=== PATIENT | male | born 1955 | race African-American/Black ===

== ENCOUNTER 2019-03-15 12:29 | Inpatient (IN) | payer MEDICARE ==
--- NOTE | 2019-03-15 12:47 | Emergency Department Report ---
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 Due to findings the following was ordered: ED Disposition for MSE Condition: Stable
[2019-03-15 13:43] LABS: Hematocrit 34.4 % (35.5-45.6); Hemoglobin 11.1 gm/dl (11.8-15.2); Mean Corpuscular HGB Conc 32 % (32-34); Mean Corpuscular Volume 95 fl (84-94); Platelet Count 265 K/mm3 (140-440); Red Blood Count 3.62 M/mm3 (3.65-5.03); Red Cell Distribution Width 18.3 % (13.2-15.2)
[2019-03-15 14:06] LABS: Albumin 2.7 g/dL (3.9-5); Calcium 9.1 mg/dL (8.4-10.2)
--- NOTE | 2019-03-15 14:28 | Consultation ---
History of Present Illness - Reason for Consult end stage renal disease - History of Present Illness 63 year old gentleman Latvian speaking only with medical history significant for HTN, end-stage renal disease on hemodialysis Thursday via a right arm AV fistula at [facility] last session of dialysis was . He denies any orthopnea PND. Denies any lower extremity edema. 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 Reports dialysis access clotted on Thursday and was unable to dialyze ,was sent to the ER today after presenting with clotted access again today. Denies any fevers chills. Denies any abdominal pain denies any shortness of breath. Labs in the ED significant for potassium of 5.4 he was found on room air oxygen saturation 100% Medications and Allergies Allergies Allergy/AdvReac Type Severity Reaction Status Date / Time No Known Allergies Allergy Unverified 03/15/19 12:44 Review of Systems Constitutional: weight gain, fatigue Ears, nose, mouth and throat: no ear pain, no ear discharge Cardiovascular: no chest pain, no orthopnea Respiratory: no cough, no cough with sputum Gastrointestinal: no abdominal pain, no nausea, no vomiting, no melena, no hematochezia Genitourinary Male: no dysuria, no hematuria Musculoskeletal: no neck stiffness, no neck pain Integumentary: no redness Neurological: weakness (right-sided), no parathesias, no numbness Psychiatric: anxiety Endocrine: no cold intolerance, no heat intolerance Hematologic/Lymphatic: no easy bruising, no easy bleeding Exam - Vital Signs Vital signs: Vital Signs Temp Pulse Resp BP Pulse Ox 98.1 F 61 20 245/130 100 03/15/19 12:42 03/15/19 12:42 03/15/19 12:42 03/15/19 12:42 03/15/19 12:42 - General Appearance General appearance: well-developed, well-nourished EENT: ATNC, PERRL, mucous membranes moist Neck: Present: neck supple, trachea midline Respiratory: Clear to Ascultation Heart: regular, S1S2 Gastrointestinal: Present: normal, normoactive bowel sounds Integumentary: no rash Neurologic: alert and oriented x3, CN 3-12 intact, upper extremity weakness Musculoskeletal: Present: deferred Psychiatric: mood/affect appropriate Results - Lab Results 03/15/19 13:23 03/15/19 13:23 Most recent lab results Calcium 9.1 mg/dL (8.4-10.2) 03/15/19 13:23 Phosphorus 4.50 mg/dL (2.5-4.5) 03/15/19 13:23 - Image Kidney/bladder ultrasound: other (I reviewed chest x-ray without any overt edema) Assessment and Plan - Patient Problems (1) End stage renal disease Status: Acute Plan to address problem: End stage renal disease AV fistula is clotted Discussed with vascular surgery team regarding declotting access versus tunneled dialysis catheter Placement We will initiate hemodialysis as soon as access placed (2) HTN (hypertension) Status: Acute Plan to address problem: Hypertension controlled monitor blood pressure (3) Hyperkalemia, diminished renal excretion Status: Acute Plan to address problem: Hyperkalemia: Potassium 5.4 We'll give Kayexalate 30 g 1 Low potassium diet (4) Acidosis Status: Acute Plan to address problem: Metabolic acidosis We'll give orders of sodium bicarbonate for now Initiate hemodialysis as soon as access is functional
--- NOTE | 2019-03-15 14:36 | XRay Report ---
CHEST XRAY, 2 VIEWS: History: Shortness of breath. Findings: There is coarsening of the perihilar markings. The lungs are clear and well expanded. The pleural spaces are clear. The cardiac silhouette and pulmonary vasculature are within normal limits for technique. The osseous structures appear within normal limits. IMPRESSION: Findings consistent with reactive airway disease or bronchiolitis.
[2019-03-15] MEDS ORDERED: KIONEX PO ONE (15:00)
--- NOTE | 2019-03-15 15:35 | Emergency Department Report ---
ED General Adult HPI - General Chief complaint: Medical Clearance Stated complaint: SICK Time Seen by Provider: 03/15/19 12:43 Source: family, donor services technician (Family member named Simon) Mode of arrival: Wheelchair Limitations: Language Barrier - History of Present Illness Initial comments: Patient presents to the emergency department due to an issue with his AV fistula. The patient is a dialysis patient and has not had dialysis since . Assess was attempted on Thursday to no avail and again today without success. The patient's procedure tech reached out to vascular surgery and attempt will be made tomorrow for a repair or temporary measures for dialysis -: Sudden Severity scale (0 -10): 0 Improves with: none Worsens with: none Associated Symptoms: denies other symptoms - Related Data Allergies Allergy/AdvReac Type Severity Reaction Status Date / Time No Known Allergies Allergy Unverified 03/15/19 12:44 ED Review of Systems ROS: Stated complaint: SICK Other details as noted in HPI Comment: All other systems reviewed and negative Constitutional: denies: chills, fever Eyes: denies: eye pain, eye discharge, vision change ENT: denies: ear pain, throat pain Respiratory: denies: cough, shortness of breath, wheezing Cardiovascular: denies: chest pain, palpitations Endocrine: no symptoms reported Gastrointestinal: denies: abdominal pain, nausea, diarrhea Genitourinary: denies: urgency, dysuria Musculoskeletal: denies: back pain, joint swelling, arthralgia Skin: denies: rash, lesions Neurological: denies: headache, weakness, paresthesias Psychiatric: denies: anxiety, depression Hematological/Lymphatic: denies: easy bleeding, easy bruising ED Past Medical Hx - Past Medical History Previous Medical History?: Yes Hx CVA: Yes Hx Renal Disease: Yes - Surgical History Additional Surgical History: unknown - Social History Smoking Status: Never Smoker Substance Use Type: None ED Physical Exam - General Limitations: Language Barrier General appearance: alert, in no apparent distress - Head Head exam: Present: atraumatic, normocephalic - Eye Eye exam: Present: normal appearance - ENT ENT exam: Present: mucous membranes moist - Neck Neck exam: Present: normal inspection - Respiratory Respiratory exam: Present: normal lung sounds bilaterally. Absent: respiratory distress, wheezes - Cardiovascular Cardiovascular Exam: Present: regular rate, normal rhythm. Absent: systolic murmur, diastolic murmur, rubs, gallop - GI/Abdominal GI/Abdominal exam: Present: soft, normal bowel sounds, other (colostomy present). Absent: distended, tenderness - Rectal Rectal exam: Present: deferred - Extremities Exam Extremities exam: Present: normal inspection, other (fistula of the right upper extremity without peripheral) - Back Exam Back exam: Present: normal inspection - Neurological Exam Neurological exam: Present: alert, oriented X3 - Psychiatric Psychiatric exam: Present: normal affect, normal mood - Skin Skin exam: Present: warm, dry, intact, normal color. Absent: rash ED Course Vital Signs 03/15/19 12:42 Temperature 98.1 F Pulse Rate 61 Respiratory 20 Rate Blood Pressure 245/130 O2 Sat by Pulse 100 Oximetry ED Medical Decision Making - Lab Data Result diagrams: 03/15/19 13:23 03/15/19 13:23 Lab Results 03/15/19 03/15/19 Range/Units 13:23 13:23 WBC 7.2 (4.5-11.0) K/mm3 RBC 3.62 L (3.65-5.03) M/mm3 Hgb 11.1 L (11.8-15.2) gm/dl Hct 34.4 L (35.5-45.6) % MCV 95 H (84-94) fl MCH 31 (28-32) pg MCHC 32 (32-34) % RDW 18.3 H (13.2-15.2) % Plt Count 265 (140-440) K/mm3 Sodium 137 (137-145) mmol/L Potassium 5.4 H (3.6-5.0) mmol/L Chloride 98.4 (98-107) mmol/L Carbon Dioxide 19 L (22-30) mmol/L Anion Gap 25 mmol/L BUN 56 H (9-20) mg/dL Creatinine 20.2 H (0.8-1.5) mg/dL Estimated GFR 2 ml/min BUN/Creatinine Ratio 3 % Glucose 83 (75-100) mg/dL Calcium 9.1 (8.4-10.2) mg/dL Phosphorus 4.50 (2.5-4.5) mg/dL Total Bilirubin 0.50 (0.1-1.2) mg/dL AST 16 (5-40) units/L ALT 24 (7-56) units/L Alkaline Phosphatase 156 H (35-129) units/L Total Protein 5.9 L (6.3-8.2) g/dL Albumin 2.7 L (3.9-5) g/dL Albumin/Globulin Ratio 0.8 % - Radiology Data Radiology results: report reviewed - Medical Decision Making The patient's procedure tech, come to the ED to see the patient and discussed the situation with me in detail This lady her plan was to have the patient to revascularization of his fistula and have dialysis but there was no availability Critical care attestation.: If time is entered above; I have spent that time in minutes in the direct care of this critically ill patient, excluding procedure time. ED Disposition Clinical Impression: Complication of AV dialysis fistula Disposition: OP ADMIT IP TO THIS HOSP Is pt being admited?: Yes Does the pt Need Aspirin: No Condition: Stable
[2019-03-15] MEDS ORDERED: MORPHINE IV ONE (16:15)
[2019-03-15] MEDS ORDERED: ZOFRAN IV PRN (21:00)
[2019-03-15] MEDS ORDERED: TYLENOL PO PRN (21:00)
[2019-03-15] MEDS ORDERED: SODIUM CHLORIDE FLUSH SYRINGE 10 ML IV PRN (21:00)
[2019-03-15] MEDS ORDERED: NON-FORMULARY (Omeprazole [Omeprazole] 20 MG) PO SCH (22:00)
[2019-03-15] MEDS ORDERED: HumaLOG SUB-Q ONE (22:09)
[2019-03-15] MEDS: SODIUM BICARBONATE PO SCH (23:48)
[2019-03-15] MEDS: ZOLOFT PO SCH (23:48)
[2019-03-15] MEDS: ZYLOPRIM PO SCH (23:48)
[2019-03-15] MEDS: SODIUM CHLORIDE FLUSH SYRINGE 10 ML IV SCH (23:49)
[2019-03-15] MEDS: PROTONIX PO SCH (23:49)
[2019-03-16] MEDS: MEGACE PO SCH ×2 (00:03→10:00)
--- NOTE | 2019-03-16 01:38 | Event Note ---
Date: 03/15/19 See dictated H/p in reports Volume overloas in ESRD Hyperkalemia Malfunctioning AV Fistula
--- NOTE | 2019-03-16 01:58 | History and Physical Report ---
Cancel the document MTDD
--- NOTE | 2019-03-16 02:09 | History and Physical Report ---
CHIEF COMPLAINT: 1. Malfunctioning AV fistula. 2. Unable to do dialysis. HISTORY OF PRESENT ILLNESS: The patient comes into the Emergency Room for AV fistula, not being functioning. The patient has not had dialysis since , which is about 5 days ago. Access was attempted on Thursday 3 days ago, but was not successful. The patient's leaf size picker referred to the Emergency Room for admission and Vascular Surgery. The patient to get AV fistula repair tomorrow and if necessary Vascath insertion. No shortness of breath. Exertional dyspnea present. No chest pain. PAST MEDICAL HISTORY: Significant for CVA in the past, end-stage renal disease. PAST SURGICAL HISTORY: AV fistula. SOCIAL HISTORY: Does not smoke. FAMILY HISTORY: Hypertension. REVIEW OF SYSTEMS: Significant for shortness of breath on minimal exertion. No orthopnea. PHYSICAL EXAMINATION: GENERAL: Elderly male, cooperative during examination. VITAL SIGNS: Blood pressure is 97/58, temperature 97.5, pulse is 75, respirations are 18, sats are 100%. HEENT: Unremarkable. Pupils are equal and reactive. NECK: Supple, no lymphadenopathy, no thyromegaly. LUNGS: Clear to auscultation and percussion. Good air entry. CARDIOVASCULAR: S1, S2 heard. No gallop, no murmur, no rub. Apical impulse in the left fifth intercostal space and midclavicular line. ABDOMEN: Soft and benign. No hepatosplenomegaly. No guarding, no rigidity. Hernial orifices are normal. EXTREMITIES: Good pedal pulses. CENTRAL NERVOUS SYSTEM: Alert and oriented x 4, nonfocal exam. LABORATORY DATA: Significant for white count of 7200, H and H of 11.1 and 34.4, platelet count is 265,000. Sodium is 137, potassium is 5.4. BUN and creatinine is 56 and 20.2. Total protein is 5.7, albumin is 2.7. Chest x-ray shows findings consistent with reactive airway disease and bronchiolitis. ASSESSMENT AND PLAN: 1. Volume overload secondary to end-stage renal disease, was not having dialysis. The patient needs emergent dialysis after repair of AV fistula/Vas-Cath insertion. Nephrology consult requested. 2. Hyperkalemia, mild. Calcium gluconate given. 3. Insulin-dependent diabetes. Continue insulin. 4. Hypertension. Continue antihypertensives. 5. Gout. Continue allopurinol for prevention. 6. Gastroesophageal reflux disease. Continue omeprazole. 7. Depression. Continue sertraline. 8. Deep venous thrombosis prophylaxis, heparin 5000 q. 12. 9. AV Fistula Malfunction---Vascular surgery consult requested for AV Fistula repair/Vascath insertion JOB# [id number] VSM/NTS MTDD
[2019-03-16] MEDS: HEPARIN SUB-Q SCH ×3 (02:17→21:04)
[2019-03-16] MEDS: PHOSLO PO SCH ×3 (08:44→18:41)
[2019-03-16] MEDS ORDERED: HEPARIN/NS 5000 UNIT/500ML(CATH LAB) 500 ML IR ONE (08:54)
[2019-03-16] MEDS ORDERED: HEPARIN 10,000 UNITS/10 ML ONE (08:54)
[2019-03-16] MEDS ORDERED: ANCEF/STERILE WATER 2 GM/20 ML 2 GM/20 ML SYRINGE IV ONE (08:55)
[2019-03-16] MEDS ORDERED: NACL 0.9% 500 ML 500 ML ONE (09:06)
[2019-03-16] MEDS ORDERED: VERSED ONE (09:10)
[2019-03-16] MEDS ORDERED: SUBLIMAZE ONE (09:10)
[2019-03-16] MEDS: XYLOCAINE 2% INFILTRATI ONE ×2 (09:30→09:32)
[2019-03-16] MEDS: LANTUS SUB-Q SCH (10:00)
[2019-03-16] MEDS ORDERED: INSULIN DETEMIR 5 UNIT SUB-Q SCH (10:00)
[2019-03-16] MEDS: SODIUM CHLORIDE FLUSH SYRINGE 10 ML IV SCH ×2 (10:00→21:04)
[2019-03-16] MEDS: PROTONIX PO SCH ×2 (10:00→21:04)
[2019-03-16] MEDS: ZOLOFT PO SCH (10:00)
[2019-03-16] MEDS: SODIUM BICARBONATE PO SCH ×4 (10:00→21:04)
[2019-03-16] MEDS: ZYLOPRIM PO SCH (10:00)
--- NOTE | 2019-03-16 10:01 | Operative Report ---
Operative Report Operative Report: Date of procedure: 03/16/2019 Pre-operative diagnosis: Thrombosed right upper extremity arteriovenous access Post-operative diagnosis: same Procedure name(s): 1. US guided puncture of the left internal jugular vein 2. Placement of left internal jugular permacath (Glidepath 23cm) 3. Fluoroscopic supervision Surgeon: Enrique Fischer MD, FACS Industrial Renderer: none Anesthesia: local with sedation; Sedation start: 917 Sedation end: 945 Total sedation time: 28 minutes or 2 anesthesia units EBL: minimal Operative indication: Patient is a 63 yo man who requires hemodialysis access. His right upper extremity graft is thrombosed. 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 Findings: Good flow from both ports. Catheter located at the cavoatrial junction. Procedure: The patient was placed on the table in supine position. He was given intravenous sedation. The right arm was attempted to be manipulated into a position where I could get access. However the patient has severe contractures with at the elbow and at the shoulder and the arm cannot be positioned in such a way that would facilitate getting equipment in to do a percutaneous thrombectomy. The angle of the elbow would not permit any guidewires passed distally which would make quite difficult to get the arterial plug. In addition it is very difficult to move the arm in a position that doesn't have the forearm essentially draped over the arterial venous access site. Ultrasound was used to locate the right internal jugular vein. This was patent high up in the neck but occluded at the subclavian area. The femoral vessels were looked at and both femoral veins were not visualized on the ultrasound. The left internal jugular vein appeared to be patent all the way although smaller at the base of the neck. The decision was made to try to place a left jugular vein permacath. The left neck and chest was prepped with ChloraPrep solution and draped in usual sterile fashion. 1% lidocaine plain was used for local anesthesia. Under real- time ultrasound guidance the left internal jugular vein was cannulated using micropuncture technique. The micropuncture wire passed easily into the central circulation. A subcutaneous tunnel was made across the anterior chest and a 23 cm glidepath catheter was tunneled along the chest to the jugular insertion site. A J-wire and a catheter was then used to place a guidewire into the inferior vena cava. This wire was exchanged for a Amplatzer wire. The tract into the vein was dilated and then the safe sheath was placed. The catheter was placed into the central circulation and the safe sheath was removed. The catheter was positioned in the right atrium. There was excellent flow from both ports. Both ports were locked with her stated volume of 1000 unit per milliliter heparin. The catheter was sewn into place using 2-0 Prolene. The insertion site was closed using 4-0 Monocryl. Sterile dressings were applied. The patient tolerated the procedure well.
[2019-03-16] MEDS ORDERED: NACL 0.9% 100 ML IV PRN (10:45)
[2019-03-16] MEDS ORDERED: HEPARIN IV PRN (10:45)
[2019-03-16 10:57] LABS: Calcium 8.4 mg/dL (8.4-10.2)
--- NOTE | 2019-03-16 11:14 | Progress Note ---
<CHANCE MORAN - Last Filed: 03/16/19 15:21> Assessment and Plan Assessment and plan: 63 y.o. Portuguese speaking male with history of CVA with right sided weakness, HTN, end-stage renal disease on hemodialysis T/ / who presented to the ED on 03/15 with c/o clotted AV graft. Pt states that he was unable to receive HD on 03/12 because his AV graft had clotted preventing access. He was sent to the ED on 03/15 after presenting to dialysis clinic with clotted access again. He was admitted to Medical floor. Vascular surgery was consulted. 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 Left IJ Permacath has been placed. ESRD On HD at [facility] T// Nephrology following HTN Controlled Continue to monitor BP PRN hydralazine Hyperkalemia Potassium on asmission 5.4 Received Kayexalate 30g per nephrology Continue to monitor electrolytes IDDM Continue POC BG monitoring SSI and Lantus HgbA1c -pending GERD On Protonix Hx Gout On Allopurinol Hx of Depression On Zoloft Hx of CVA- with right sided weakness DVT PPX On Heparin Disposition Plan: D/C once cleared by vascular surgery and nephrology History Interval history: Pt remained stable overnight. He was taken to OR this am by Vascular Surgery for possible thrombectomy of malfunctioning AV Fistula. Hospitalist Physical - Constitutional Vitals: Temp Pulse Resp BP Pulse Ox 98.7 F 89 16 110/67 100 03/16/19 08:35 03/16/19 08:35 03/16/19 08:35 03/16/19 08:35 03/16/19 08:35 General appearance: Present: no acute distress - EENT Eyes: Present: PERRL, EOM intact ENT: hearing intact - Neck Neck: Present: supple, normal ROM, other (Left IJ Permacath ) - Respiratory Respiratory effort: normal Respiratory: bilateral: diminished - Cardiovascular Heart Sounds: Present: S1 & S2 - Extremities Extremities: No edema, abnormal (Right Arm Vascath) Extremity abnormal: other - Abdominal General gastrointestinal: soft, non-tender - Integumentary Integumentary: Present: warm, dry - Psychiatric Psychiatric: cooperative - Neurologic Neurologic: CNII-XII intact Results - Labs CBC & Chem 7: 03/15/19 13:23 03/16/19 Unknown Labs: Laboratory Last Values WBC 7.2 K/mm3 (4.5-11.0) 03/15/19 13:23 RBC 3.62 M/mm3 (3.65-5.03) L 03/15/19 13:23 Hgb 11.1 gm/dl (11.8-15.2) L 03/15/19 13:23 Hct 34.4 % (35.5-45.6) L 03/15/19 13:23 MCV 95 fl (84-94) H 03/15/19 13:23 MCH 31 pg (28-32) 03/15/19 13:23 MCHC 32 % (32-34) 03/15/19 13:23 RDW 18.3 % (13.2-15.2) H 03/15/19 13:23 Plt Count 265 K/mm3 (140-440) 03/15/19 13:23 Sodium 140 mmol/L (137-145) 03/16/19 Unknown Potassium 5.1 mmol/L (3.6-5.0) H 03/16/19 Unknown Chloride 100.9 mmol/L (98-107) 03/16/19 Unknown Carbon Dioxide 25 mmol/L (22-30) 03/16/19 Unknown Anion Gap 19 mmol/L 03/16/19 Unknown BUN 54 mg/dL (9-20) H 03/16/19 Unknown Creatinine 20.1 mg/dL (0.8-1.5) H 03/16/19 Unknown Estimated GFR 2 ml/min 03/16/19 Unknown BUN/Creatinine Ratio 3 % 03/16/19 Unknown Glucose 99 mg/dL (75-100) 03/16/19 Unknown POC Glucose 110 (70-105) H 03/16/19 00:06 Calcium 8.4 mg/dL (8.4-10.2) 03/16/19 Unknown Phosphorus 4.50 mg/dL (2.5-4.5) 03/15/19 13:23 Total Bilirubin 0.50 mg/dL (0.1-1.2) 03/15/19 13:23 AST 16 units/L (5-40) 03/15/19 13:23 ALT 24 units/L (7-56) 03/15/19 13:23 Alkaline Phosphatase 156 units/L (35-129) H 03/15/19 13:23 Total Protein 5.9 g/dL (6.3-8.2) L 03/15/19 13:23 Albumin 2.7 g/dL (3.9-5) L 03/15/19 13:23 Albumin/Globulin Ratio 0.8 % 03/15/19 13:23 Active Medications - Current Medications Current Medications: Generic Name Dose Route Start Last Admin Trade Name Freq PRN Reason Stop Dose Admin Acetaminophen 650 mg 03/15/19 21:00 Tylenol PO Q4H PRN Pain MILD(1-3)/Fever >100.5/NATHAN Allopurinol 100 mg 03/15/19 22:00 03/15/19 23:48 Zyloprim PO 100 mg QDAY [facility] Administration Calcium Acetate 667 mg 03/16/19 08:00 03/16/19 08:44 Phoslo PO Not Given TIDWM [facility] Heparin Sodium (Porcine) 5,000 unit 03/16/19 01:30 03/16/19 02:17 Heparin SUB-Q Not Given Q12HR [facility] Heparin Sodium (Porcine) 5,000 unit 03/16/19 10:45 Heparin IV HERNANDEZ PRN hemodialysis Sodium Chloride 100 mls @ 999 mls/hr 03/16/19 10:45 Nacl 0.9% IV HERNANDEZ PRN Hypotension Insulin Glargine 5 units 03/16/19 10:00 Lantus SUB-Q QAM [facility] Megestrol Acetate 400 mg 03/15/19 22:00 03/16/19 00:03 Megace PO Not Given QDAY [facility] Ondansetron HCl 4 mg 03/15/19 21:00 Zofran IV Q8H PRN Nausea And Vomiting Pantoprazole Sodium 20 mg 03/15/19 22:00 03/15/19 23:49 Protonix PO 20 mg BID ALMA Administration Sertraline HCl 50 mg 03/15/19 22:00 03/15/19 23:48 Zoloft PO 50 mg QDAY [facility] Administration Sodium Bicarbonate 650 mg 03/15/19 22:00 03/15/19 23:48 Sodium Bicarbonate PO 650 mg QID ALMA Administration Sodium Chloride 10 ml 03/15/19 22:00 03/15/19 23:49 Sodium Chloride Flush Syringe 10 Ml IV 10 ml BID ALMA Administration Sodium Chloride 10 ml 03/15/19 21:00 Sodium Chloride Flush Syringe 10 Ml IV PRN PRN LINE FLUSH <FRANC LAGUNAS M - Last Filed: 03/16/19 16:29> Assessment and Plan Assessment and plan: I saw and evaluated the patient during dialysis. I agree with the findings and the plan of care as documented in the Nurse Practitioner's chance Moran note, with the following corrections and additions. patient was complaining pain and pain meds were given. patient admitted for declotting of AVG. vascular surgery and Nephrology following. Hospitalist Physical - Constitutional Vitals: Temp Pulse Resp BP Pulse Ox 98.3 F 99 H 16 103/69 100 03/16/19 16:10 03/16/19 16:08 03/16/19 16:08 03/16/19 16:08 03/16/19 16:08 Results - Labs CBC & Chem 7: 03/15/19 13:23 03/16/19 Unknown Labs: Laboratory Last Values WBC 7.2 K/mm3 (4.5-11.0) 03/15/19 13:23 RBC 3.62 M/mm3 (3.65-5.03) L 03/15/19 13:23 Hgb 11.1 gm/dl (11.8-15.2) L 03/15/19 13:23 Hct 34.4 % (35.5-45.6) L 03/15/19 13:23 MCV 95 fl (84-94) H 03/15/19 13:23 MCH 31 pg (28-32) 03/15/19 13:23 MCHC 32 % (32-34) 03/15/19 13:23 RDW 18.3 % (13.2-15.2) H 03/15/19 13:23 Plt Count 265 K/mm3 (140-440) 03/15/19 13:23 Sodium 140 mmol/L (137-145) 03/16/19 Unknown Potassium 5.1 mmol/L (3.6-5.0) H 03/16/19 Unknown Chloride 100.9 mmol/L (98-107) 03/16/19 Unknown Carbon Dioxide 25 mmol/L (22-30) 03/16/19 Unknown Anion Gap 19 mmol/L 03/16/19 Unknown BUN 54 mg/dL (9-20) H 03/16/19 Unknown Creatinine 20.1 mg/dL (0.8-1.5) H 03/16/19 Unknown Estimated GFR 2 ml/min 03/16/19 Unknown BUN/Creatinine Ratio 3 % 03/16/19 Unknown Glucose 99 mg/dL (75-100) 03/16/19 Unknown POC Glucose 110 (70-105) H 03/16/19 00:06 Hemoglobin A1c < 4.2 % (4-6) 03/16/19 10:16 Calcium 8.4 mg/dL (8.4-10.2) 03/16/19 Unknown Phosphorus 4.50 mg/dL (2.5-4.5) 03/15/19 13:23 Total Bilirubin 0.50 mg/dL (0.1-1.2) 03/15/19 13:23 AST 16 units/L (5-40) 03/15/19 13:23 ALT 24 units/L (7-56) 03/15/19 13:23 Alkaline Phosphatase 156 units/L (35-129) H 03/15/19 13:23 Total Protein 5.9 g/dL (6.3-8.2) L 03/15/19 13:23 Albumin 2.7 g/dL (3.9-5) L 03/15/19 13:23 Albumin/Globulin Ratio 0.8 % 03/15/19 13:23 Hepatitis A IgM Ab Non-reactive (NonReactive) 03/16/19 Unknown Hep Bs Antigen Non-reactive (Negative) 03/16/19 Unknown Hep B Core IgM Ab Non-reactive (NonReactive) 03/16/19 Unknown Hepatitis C Antibody Non-reactive (NonReactive) 03/16/19 Unknown Active Medications - Current Medications Current Medications: Generic Name Dose Route Start Last Admin Trade Name Freq PRN Reason Stop Dose Admin Acetaminophen 650 mg 03/15/19 21:00 Tylenol PO Q4H PRN Pain MILD(1-3)/Fever >100.5/NATHAN Allopurinol 100 mg 03/15/19 22:00 03/15/19 23:48 Zyloprim PO 100 mg QDAY [facility] Administration Calcium Acetate 667 mg 03/16/19 08:00 03/16/19 13:12 Phoslo PO Not Given TIDWM [facility] Heparin Sodium (Porcine) 5,000 unit 03/16/19 01:30 03/16/19 13:12 Heparin SUB-Q Not Given Q12HR [facility] Heparin Sodium (Porcine) 5,000 unit 03/16/19 10:45 Heparin IV HERNANDEZ PRN hemodialysis Hydralazine HCl 10 mg 03/16/19 12:00 Apresoline IV Q4H PRN Blood Pressure Sodium Chloride 100 mls @ 999 mls/hr 03/16/19 10:45 Nacl 0.9% IV HERNANDEZ PRN Hypotension Insulin Glargine 5 units 03/16/19 10:00 Lantus SUB-Q QAM [facility] Megestrol Acetate 400 mg 03/15/19 22:00 03/16/19 00:03 Megace PO Not Given QDAY [facility] Morphine Sulfate 2 mg 03/16/19 16:00 Morphine IV 03/17/19 15:59 Q4H PRN Pain, Moderate (4-6) Ondansetron HCl 4 mg 03/15/19 21:00 Zofran IV Q8H PRN Nausea And Vomiting Oxycodone/Acetaminophen 1 tab 03/16/19 16:00 Percocet 5/325 PO Q6H PRN Pain, Moderate (4-6) Pantoprazole Sodium 20 mg 03/15/19 22:00 03/15/19 23:49 Protonix PO 20 mg BID ALMA Administration Sertraline HCl 50 mg 03/15/19 22:00 03/15/19 23:48 Zoloft PO 50 mg QDAY [facility] Administration Sodium Bicarbonate 650 mg 03/15/19 22:00 03/16/19 13:13 Sodium Bicarbonate PO Not Given QID [facility] Sodium Chloride 10 ml 03/15/19 22:00 03/16/19 10:00 Sodium Chloride Flush Syringe 10 Ml IV 10 ml BID ALMA Administration Sodium Chloride 10 ml 03/15/19 21:00 Sodium Chloride Flush Syringe 10 Ml IV PRN PRN LINE FLUSH Nutrition/Malnutrition Assess - Dietary Evaluation Nutrition/Malnutrition Findings: Nutrition Notes Start: 03/16/19 15:02 Freq: Status: Active Protocol: Document 03/16/19 15:02 RM (Rec: 03/16/19 15:09 RM [id number]) Nutrition Notes 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 Pt not in room at time of visit but pt in room. Pt does not speak Wallisian and had friend interpret via phone. Stated that pt ate 3 meals daily [employer] and that he has not had a chance to eat here. Denied chewing difficulty. DM diet education not appropriate d/t A1c of 4.2. Burn Absent Trauma Absent Nutrition Intervention Revisit per MD consult or patient Sign Off request:
[2019-03-16] MEDS ORDERED: APRESOLINE IV PRN (12:00)
[2019-03-16] MEDS ORDERED: NACL 0.9 (PRIMING MACHINE ONLY DIALYSIS) MC ONE (14:07)
[2019-03-16 14:49] LABS: Hepatitis B Surface Antigen Non-Reactive (Negative); Hepatitis C Virus Antibody Non-Reactive (NonReactive)
[2019-03-16] MEDS ORDERED: MORPHINE IV PRN (16:00)
--- NOTE | 2019-03-16 17:28 | Progress Note ---
Assessment and Plan - Patient Problems (1) End stage renal disease Current Visit: No Status: Acute Plan to address problem: End stage renal disease AV fistula is clotted Discussed with vascular surgery team regarding declotting access versus tunneled dialysis catheter Placement Vascular surgery unable to perform thrombectomy due to contractures Has had tunnelled dialysis catheter placed (2) HTN (hypertension) Current Visit: No Status: Acute Plan to address problem: Hypertension controlled monitor blood pressure (3) Hyperkalemia, diminished renal excretion Current Visit: No Status: Acute Plan to address problem: Hyperkalemia: Potassium 5.4 We'll give Kayexalate 30 g 1 Low potassium diet Hemodialysis intiated. (4) Acidosis Current Visit: No Status: Acute Plan to address problem: Metabolic acidosis Initiate hemodialysis Subjective Interval history: 63 year old gentleman Yoruba speaking only with medical history significant for HTN, end-stage renal disease on hemodialysis Thursday via a right arm AV fistula at [facility] last session of dialysis was . patient seen today I attest I saw the patient on hemodialysis at 12noon. prior authorization technician reports some nausea earlier he feels well. Objective - Vital Signs Vital signs: Vital Signs - 12hr 03/16/19 03/16/19 03/16/19 05:30 05:40 05:50 Temperature Pulse Rate 73 62 61 Respiratory 18 17 13 Rate Blood Pressure 105/48 105/48 105/48 Blood Pressure [Left] O2 Sat by Pulse 99 99 Oximetry 03/16/19 03/16/19 03/16/19 06:00 06:10 06:20 Temperature Pulse Rate 62 65 71 Respiratory 16 17 13 Rate Blood Pressure 105/48 106/46 106/46 Blood Pressure [Left] O2 Sat by Pulse 99 99 98 Oximetry 03/16/19 03/16/19 03/16/19 06:30 06:40 06:50 Temperature Pulse Rate 74 67 66 Respiratory 17 18 16 Rate Blood Pressure 106/46 106/46 102/37 Blood Pressure [Left] O2 Sat by Pulse 99 99 100 Oximetry 03/16/19 03/16/19 03/16/19 08:35 10:00 10:20 Temperature 98.7 F 97.0 F L Pulse Rate 89 77 78 Respiratory 16 18 Rate Blood Pressure 120/78 117/78 Blood Pressure 110/67 [Left] O2 Sat by Pulse 100 Oximetry 03/16/19 03/16/19 03/16/19 10:30 10:45 11:00 Temperature Pulse Rate 74 84 92 H Respiratory Rate Blood Pressure 111/75 111/77 102/76 Blood Pressure [Left] O2 Sat by Pulse Oximetry 03/16/19 03/16/19 03/16/19 11:15 11:30 11:45 Temperature Pulse Rate 95 H 144 H 100 H Respiratory Rate Blood Pressure 113/81 130/63 86/70 Blood Pressure [Left] O2 Sat by Pulse Oximetry 03/16/19 03/16/19 03/16/19 12:00 12:15 12:30 Temperature Pulse Rate 100 H 108 H 98 H Respiratory Rate Blood Pressure 113/66 88/65 87/71 Blood Pressure [Left] O2 Sat by Pulse Oximetry 03/16/19 03/16/19 03/16/19 12:45 13:00 13:15 Temperature Pulse Rate 99 H 109 H 103 H Respiratory Rate Blood Pressure 97/71 90/69 89/66 Blood Pressure [Left] O2 Sat by Pulse Oximetry 03/16/19 03/16/19 03/16/19 13:30 13:45 15:19 Temperature 97.5 F L Pulse Rate 103 H 112 H 94 H Respiratory 18 Rate Blood Pressure 89/68 91/68 107/71 Blood Pressure [Left] O2 Sat by Pulse Oximetry 03/16/19 03/16/19 16:08 16:10 Temperature 98.3 F 98.3 F Pulse Rate 99 H Respiratory 16 Rate Blood Pressure 103/69 Blood Pressure [Left] O2 Sat by Pulse 100 Oximetry - General Appearance General appearance: well-developed, well-nourished EENT: ATNC, PERRL, mucous membranes moist Neck: no JVD, JVD Respiratory: Present: Clear to Ascultation Cardiology: regular, S1S2 Gastrointestinal: normal, normoactive bowel sounds Integumentary: no rash Neurologic: alert and oriented x3, upper extremity weakness Psychiatric: mood/affect appropriate - Lab 03/15/19 13:23 03/16/19 Unknown Most recent lab results Calcium 8.4 mg/dL (8.4-10.2) 03/16/19 Unknown Phosphorus 4.50 mg/dL (2.5-4.5) 03/15/19 13:23 - Imaging Chest x-ray: image reviewed (I reviewed CXR without overt edema. ) Medications & Allergies - Medications Allergies/Adverse Reactions: Allergies No Known Allergies Allergy (Unverified 03/15/19 12:44) Home Medications: Home Medications Medication Instructions Recorded Confirmed Last Taken Type Allopurinol [Zyloprim] 100 mg PO QDAY 03/15/19 03/15/19 Unknown History Calcium Acetate [Phoslo] 667 mg PO TID 03/15/19 03/15/19 Unknown History Insulin Detemir [Levemir VIAL] 5 units SUB-Q QAM 03/15/19 03/15/19 Unknown History Megestrol [Megace] 10 ml PO QDAY 03/15/19 03/15/19 Unknown History Omeprazole 20 mg PO BID 03/15/19 03/15/19 Unknown History Sertraline [Zoloft] 50 mg PO QDAY 03/15/19 03/15/19 Unknown History Sodium Bicarbonate 650 mg PO QID 03/15/19 03/15/19 Unknown History Active Medications: Generic Name Dose Route Start Last Admin Trade Name Freq PRN Reason Stop Dose Admin Acetaminophen 650 mg 03/15/19 21:00 Tylenol PO Q4H PRN Pain MILD(1-3)/Fever >100.5/NATHAN Allopurinol 100 mg 03/15/19 22:00 03/15/19 23:48 Zyloprim PO 100 mg QDAY [facility] Administration Calcium Acetate 667 mg 03/16/19 08:00 03/16/19 13:12 Phoslo PO Not Given TIDWM [facility] Heparin Sodium (Porcine) 5,000 unit 03/16/19 01:30 03/16/19 13:12 Heparin SUB-Q Not Given Q12HR [facility] Heparin Sodium (Porcine) 5,000 unit 03/16/19 10:45 Heparin IV HERNANDEZ PRN hemodialysis Hydralazine HCl 10 mg 03/16/19 12:00 Apresoline IV Q4H PRN Blood Pressure Sodium Chloride 100 mls @ 999 mls/hr 03/16/19 10:45 Nacl 0.9% IV HERNANDEZ PRN Hypotension Insulin Glargine 5 units 03/16/19 10:00 Lantus SUB-Q QAM [facility] Megestrol Acetate 400 mg 03/15/19 22:00 03/16/19 00:03 Megace PO Not Given QDAY [facility] Morphine Sulfate 2 mg 03/16/19 16:00 Morphine IV 03/17/19 15:59 Q4H PRN Pain, Moderate (4-6) Ondansetron HCl 4 mg 03/15/19 21:00 Zofran IV Q8H PRN Nausea And Vomiting Oxycodone/Acetaminophen 1 tab 03/16/19 16:00 Percocet 5/325 PO Q6H PRN Pain, Moderate (4-6) Pantoprazole Sodium 20 mg 03/15/19 22:00 03/15/19 23:49 Protonix PO 20 mg BID ALMA Administration Sertraline HCl 50 mg 03/15/19 22:00 03/15/19 23:48 Zoloft PO 50 mg QDAY [facility] Administration Sodium Bicarbonate 650 mg 03/15/19 22:00 03/16/19 13:13 Sodium Bicarbonate PO Not Given QID ALMA Sodium Chloride 10 ml 03/15/19 22:00 03/16/19 10:00 Sodium Chloride Flush Syringe 10 Ml IV 10 ml BID ALMA Administration Sodium Chloride 10 ml 03/15/19 21:00 Sodium Chloride Flush Syringe 10 Ml IV PRN PRN LINE FLUSH
[2019-03-16] MEDS: PERCOCET 5/325 PO PRN (18:41)
[2019-03-17 08:04] LABS: Calcium 8.7 mg/dL (8.4-10.2)
[2019-03-17] MEDS: LANTUS SUB-Q SCH (09:37)
[2019-03-17] MEDS: PROTONIX PO SCH ×2 (09:40→21:45)
[2019-03-17] MEDS: PHOSLO PO SCH ×3 (09:41→18:12)
[2019-03-17] MEDS: HEPARIN SUB-Q SCH ×2 (09:41→21:41)
[2019-03-17] MEDS: SODIUM BICARBONATE PO SCH ×4 (09:41→21:41)
[2019-03-17] MEDS: ZOLOFT PO SCH (09:41)
[2019-03-17] MEDS: ZYLOPRIM PO SCH (09:42)
[2019-03-17] MEDS: SODIUM CHLORIDE FLUSH SYRINGE 10 ML IV SCH ×2 (09:42→21:42)
[2019-03-17] MEDS: MEGACE PO SCH (09:42)
--- NOTE | 2019-03-17 09:42 | Progress Note ---
<FLORA MORAN - Last Filed: 03/17/19 09:43> Assessment and Plan Assessment and plan: 63 y.o. Tamazight speaking male with history of CVA with right sided weakness, HTN, end-stage renal disease on hemodialysis T/ / who presented to the ED on 03/15 with c/o clotted AV graft. Pt states that he was unable to receive HD on 03/12 because his AV graft had clotted preventing access. He was sent to the ED on 03/15 after presenting to dialysis clinic with clotted access again. He was admitted to Medical floor. Vascular surgery was consulted. 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 Left IJ Permacath has been placed. Vein Mapping of Left Arm- pending ESRD On HD at [facility] T// Received HD yesterday Nephrology following HTN Controlled Continue to monitor BP PRN hydralazine Hyperkalemia Potassium on admission 5.4 Received Kayexalate 30gm per nephrology Potassium this morning 5.5; will order Kayexalate 30gm Continue to monitor electrolytes IDDM Continue POC BG monitoring SSI and Lantus HgbA1c -pending GERD On Protonix Hx Gout On Allopurinol Hx of Depression On Zoloft Hx of CVA- with right sided weakness DVT PPX On Heparin Disposition Plan: D/C to home one medically cleared History Interval history: Pt received HD yesterday. He remained stable overnight. There were no acute overnight events. Hospitalist Physical - Physical exam Narrative exam: General appearance: Present: no acute distress - EENT Eyes: Present: PERRL, EOM intact ENT: hearing intact - Neck Neck: Present: supple, normal ROM, other (Left IJ Permacath ) - Respiratory Respiratory effort: normal Respiratory: bilateral: diminished - Cardiovascular Heart Sounds: Present: S1 & S2 - Extremities Extremities: No edema, abnormal (Right Arm Vascath) Extremity abnormal: other - Abdominal General gastrointestinal: soft, non-tender - Integumentary Integumentary: Present: warm, dry - Psychiatric Psychiatric: cooperative - Neurologic Neurologic: CNII-XII intact - Constitutional Vitals: Temp Pulse Resp BP Pulse Ox 97.8 F 92 H 16 90/51 98 03/17/19 06:12 03/17/19 00:19 03/17/19 06:12 03/17/19 06:12 03/17/19 00:19 General appearance: Present: no acute distress Results - Labs CBC & Chem 7: 03/15/19 13:23 03/17/19 07:32 Labs: Laboratory Last Values WBC 7.2 K/mm3 (4.5-11.0) 03/15/19 13:23 RBC 3.62 M/mm3 (3.65-5.03) L 03/15/19 13:23 Hgb 11.1 gm/dl (11.8-15.2) L 03/15/19 13:23 Hct 34.4 % (35.5-45.6) L 03/15/19 13:23 MCV 95 fl (84-94) H 03/15/19 13:23 MCH 31 pg (28-32) 03/15/19 13:23 MCHC 32 % (32-34) 03/15/19 13:23 RDW 18.3 % (13.2-15.2) H 03/15/19 13:23 Plt Count 265 K/mm3 (140-440) 03/15/19 13:23 Sodium 140 mmol/L (137-145) 03/17/19 07:32 Potassium 5.5 mmol/L (3.6-5.0) H 03/17/19 07:32 Chloride 102.2 mmol/L (98-107) 03/17/19 07:32 Carbon Dioxide 30 mmol/L (22-30) 03/17/19 07:32 Anion Gap 13 mmol/L 03/17/19 07:32 BUN 17 mg/dL (9-20) 03/17/19 07:32 Creatinine 11.3 mg/dL (0.8-1.5) H 03/17/19 07:32 Estimated GFR 5 ml/min 03/17/19 07:32 BUN/Creatinine Ratio 2 % 03/17/19 07:32 Glucose 93 mg/dL (75-100) 03/17/19 07:32 POC Glucose 111 (70-105) H 03/16/19 22:15 Hemoglobin A1c < 4.2 % (4-6) 03/16/19 10:16 Calcium 8.7 mg/dL (8.4-10.2) 03/17/19 07:32 Phosphorus 4.50 mg/dL (2.5-4.5) 03/15/19 13:23 Total Bilirubin 0.50 mg/dL (0.1-1.2) 03/15/19 13:23 AST 16 units/L (5-40) 03/15/19 13:23 ALT 24 units/L (7-56) 03/15/19 13:23 Alkaline Phosphatase 156 units/L (35-129) H 03/15/19 13:23 Total Protein 5.9 g/dL (6.3-8.2) L 03/15/19 13:23 Albumin 2.7 g/dL (3.9-5) L 03/15/19 13:23 Albumin/Globulin Ratio 0.8 % 03/15/19 13:23 Hepatitis A IgM Ab Non-reactive (NonReactive) 03/16/19 Unknown Hep Bs Antigen Non-reactive (Negative) 03/16/19 Unknown Hep B Core IgM Ab Non-reactive (NonReactive) 03/16/19 Unknown Hepatitis C Antibody Non-reactive (NonReactive) 03/16/19 Unknown Active Medications - Current Medications Current Medications: Generic Name Dose Route Start Last Admin Trade Name Freq PRN Reason Stop Dose Admin Acetaminophen 650 mg 03/15/19 21:00 Tylenol PO Q4H PRN Pain MILD(1-3)/Fever >100.5/NATHAN Allopurinol 100 mg 03/15/19 22:00 03/16/19 10:00 Zyloprim PO Not Given QDAY [facility] Calcium Acetate 667 mg 03/16/19 08:00 03/16/19 18:41 Phoslo PO 667 mg TIDWM [facility] Administration Heparin Sodium (Porcine) 5,000 unit 03/16/19 01:30 03/16/19 21:04 Heparin SUB-Q 5,000 unit Q12HR ALMA Administration Hydralazine HCl 10 mg 03/16/19 12:00 Apresoline IV Q4H PRN Blood Pressure Insulin Glargine 5 units 03/16/19 10:00 03/16/19 10:00 Lantus SUB-Q Not Given QAM [facility] Megestrol Acetate 400 mg 03/15/19 22:00 03/16/19 10:00 Megace PO Not Given QDAY ALMA Morphine Sulfate 2 mg 03/16/19 16:00 Morphine IV 03/17/19 15:59 Q4H PRN Pain, Moderate (4-6) Ondansetron HCl 4 mg 03/15/19 21:00 Zofran IV Q8H PRN Nausea And Vomiting Oxycodone/Acetaminophen 1 tab 03/16/19 16:00 03/16/19 18:41 Percocet 5/325 PO 1 tab Q6H PRN Administration Pain, Moderate (4-6) Pantoprazole Sodium 20 mg 03/15/19 22:00 03/16/19 21:04 Protonix PO 20 mg BID ALMA Administration Sertraline HCl 50 mg 03/15/19 22:00 03/16/19 10:00 Zoloft PO Not Given QDAY [facility] Sodium Bicarbonate 650 mg 03/15/19 22:00 03/16/19 21:04 Sodium Bicarbonate PO 650 mg QID ALMA Administration Sodium Chloride 10 ml 03/15/19 22:00 03/16/19 21:04 Sodium Chloride Flush Syringe 10 Ml IV 10 ml BID ALMA Administration Sodium Chloride 10 ml 03/15/19 21:00 Sodium Chloride Flush Syringe 10 Ml IV PRN PRN LINE FLUSH Nutrition/Malnutrition Assess - Dietary Evaluation Nutrition/Malnutrition Findings: Nutrition Notes Start: 03/16/19 15:02 Freq: Status: Active Protocol: Document 03/16/19 15:02 RM (Rec: 03/16/19 15:09 [id number]) Nutrition Notes Need for Assessment generated from: midwife Initial or Follow up Brief Note Current Diagnosis Diabetes,Hypertension Other Pertinent Diagnosis ESRD, Volume overload, Depression, Malfuctioning fistula, Gout, GERD Current Diet Renal Labs/Tests < A1c 4.2 Pertinent Medications Reviewed Height 5 ft 2 in Weight 56.6 kg [place] Body Weight (kg) 53.63 BMI 22.8 Subjective/Other Information Screened for new onset DM and chewing difficulty. Pt not in room at time of visit but pt in room. Pt does not speak Romansh and had friend interpret via phone. Stated that pt ate 3 meals daily BREWERY PUMPER and that he has not had a chance to eat here. Denied chewing difficulty. DM diet education not appropriate d/t A1c of 4.2. Burn Absent Trauma Absent Nutrition Intervention Revisit per MD consult or patient Sign Off request: <FRANC LAGUNAS M - Last Filed: 03/17/19 13:43> Assessment and Plan Assessment and plan: I saw and evaluated the patient. I agree with the findings and the plan of care as documented in the Nurse Practitioner's flora Moran note. patient doesn't need to have declotting and possible DC once cleared by vascular and Nephrology with home health. Hospitalist Physical - Constitutional Vitals: Temp Pulse Resp BP Pulse Ox 97.8 F 92 H 16 90/51 98 03/17/19 06:12 03/17/19 00:19 03/17/19 06:12 03/17/19 06:12 03/17/19 00:19 Results - Labs CBC & Chem 7: 03/15/19 13:23 03/17/19 07:32 Labs: Laboratory Last Values WBC 7.2 K/mm3 (4.5-11.0) 03/15/19 13:23 RBC 3.62 M/mm3 (3.65-5.03) L 03/15/19 13:23 Hgb 11.1 gm/dl (11.8-15.2) L 03/15/19 13:23 Hct 34.4 % (35.5-45.6) L 03/15/19 13:23 MCV 95 fl (84-94) H 03/15/19 13:23 MCH 31 pg (28-32) 03/15/19 13:23 MCHC 32 % (32-34) 03/15/19 13:23 RDW 18.3 % (13.2-15.2) H 03/15/19 13:23 Plt Count 265 K/mm3 (140-440) 03/15/19 13:23 Sodium 140 mmol/L (137-145) 03/17/19 07:32 Potassium 5.5 mmol/L (3.6-5.0) H 03/17/19 07:32 Chloride 102.2 mmol/L (98-107) 03/17/19 07:32 Carbon Dioxide 30 mmol/L (22-30) 03/17/19 07:32 Anion Gap 13 mmol/L 03/17/19 07:32 BUN 17 mg/dL (9-20) 03/17/19 07:32 Creatinine 11.3 mg/dL (0.8-1.5) H 03/17/19 07:32 Estimated GFR 5 ml/min 03/17/19 07:32 BUN/Creatinine Ratio 2 % 03/17/19 07:32 Glucose 93 mg/dL (75-100) 03/17/19 07:32 POC Glucose 129 (70-105) H 03/17/19 11:43 Hemoglobin A1c < 4.2 % (4-6) 03/16/19 10:16 Calcium 8.7 mg/dL (8.4-10.2) 03/17/19 07:32 Phosphorus 4.50 mg/dL (2.5-4.5) 03/15/19 13:23 Total Bilirubin 0.50 mg/dL (0.1-1.2) 03/15/19 13:23 AST 16 units/L (5-40) 03/15/19 13:23 ALT 24 units/L (7-56) 03/15/19 13:23 Alkaline Phosphatase 156 units/L (35-129) H 03/15/19 13:23 Total Protein 5.9 g/dL (6.3-8.2) L 03/15/19 13:23 Albumin 2.7 g/dL (3.9-5) L 03/15/19 13:23 Albumin/Globulin Ratio 0.8 % 03/15/19 13:23 Hepatitis A IgM Ab Non-reactive (NonReactive) 03/16/19 Unknown Hep Bs Antigen Non-reactive (Negative) 03/16/19 Unknown Hep B Core IgM Ab Non-reactive (NonReactive) 03/16/19 Unknown Hepatitis C Antibody Non-reactive (NonReactive) 03/16/19 Unknown Active Medications - Current Medications Current Medications: Generic Name Dose Route Start Last Admin Trade Name Freq PRN Reason Stop Dose Admin Acetaminophen 650 mg 03/15/19 21:00 Tylenol PO Q4H PRN Pain MILD(1-3)/Fever >100.5/NATHAN Allopurinol 100 mg 03/15/19 22:00 03/17/19 09:42 Zyloprim PO 100 mg QDAY [facility] Administration Calcium Acetate 667 mg 03/16/19 08:00 03/17/19 13:35 Phoslo PO 667 mg TIDWM [facility] Administration Heparin Sodium (Porcine) 5,000 unit 03/16/19 01:30 03/17/19 09:41 Heparin SUB-Q 5,000 unit Q12HR [facility]MA Administration Hydralazine HCl 10 mg 03/16/19 12:00 Apresoline IV Q4H PRN Blood Pressure Insulin Glargine 5 units 03/16/19 10:00 03/17/19 09:37 Lantus SUB-Q 5 units QAM [facility] Administration Megestrol Acetate 400 mg 03/15/19 22:00 03/17/19 09:42 Megace PO 400 mg QDAY [facility] Administration Morphine Sulfate 2 mg 03/16/19 16:00 Morphine IV 03/17/19 15:59 Q4H PRN Pain, Moderate (4-6) Ondansetron HCl 4 mg 03/15/19 21:00 Zofran IV Q8H PRN Nausea And Vomiting Oxycodone/Acetaminophen 1 tab 03/16/19 16:00 03/17/19 10:00 Percocet 5/325 PO 1 tab Q6H PRN Administration Pain, Moderate (4-6) Pantoprazole Sodium 20 mg 03/15/19 22:00 03/17/19 09:40 Protonix PO 20 mg BID ALMA Administration Sertraline HCl 50 mg 03/15/19 22:00 03/17/19 09:41 Zoloft PO 50 mg QDAY [facility] Administration Sodium Bicarbonate 650 mg 03/15/19 22:00 03/17/19 13:35 Sodium Bicarbonate PO 650 mg QID ALMA Administration Sodium Chloride 10 ml 03/15/19 22:00 03/17/19 09:42 Sodium Chloride Flush Syringe 10 Ml IV 10 ml BID ALMA Administration Sodium Chloride 10 ml 03/15/19 21:00 Sodium Chloride Flush Syringe 10 Ml IV PRN PRN LINE FLUSH Nutrition/Malnutrition Assess - Dietary Evaluation Nutrition/Malnutrition Findings: Nutrition Notes Start: 03/16/19 15:02 Freq: Status: Active Protocol: Document 03/16/19 15:02 RM (Rec: 03/16/19 15:09 [id number]) Nutrition Notes Need for Assessment generated from: midwife Initial or Follow up Brief Note Current Diagnosis Diabetes,Hypertension Other Pertinent Diagnosis ESRD, Volume overload, Depression, Malfuctioning fistula, Gout, GERD Current Diet Renal Labs/Tests < A1c 4.2 Pertinent Medications Reviewed Height 5 ft 2 in Weight 56.6 kg [place] Body Weight (kg) 53.63 BMI 22.8 Subjective/Other Information Screened for new onset DM and chewing difficulty. Pt not in room at time of visit but pt in room. Pt does not speak Romansh and had friend interpret via phone. Stated that pt ate 3 meals daily BREWERY PUMPER and that he has not had a chance to eat here. Denied chewing difficulty. DM diet education not appropriate d/t A1c of 4.2. Burn Absent Trauma Absent Nutrition Intervention Revisit per MD consult or patient Sign Off request:
[2019-03-17] MEDS: PERCOCET 5/325 PO PRN (10:00)
[2019-03-17] MEDS ORDERED: KIONEX PO ONE (10:30)
--- NOTE | 2019-03-17 10:37 | Progress Note ---
Assessment and Plan - Patient Problems (1) End stage renal disease Current Visit: No Status: Acute Plan to address problem: End stage renal disease AV fistula is clotted Discussed with vascular surgery team regarding declotting access versus tunneled dialysis catheter Placement Vascular surgery unable to perform thrombectomy due to contractures Has had tunnelled dialysis catheter placed Plan for new access creation per vascular surgery notes. (2) HTN (hypertension) Current Visit: No Status: Acute Plan to address problem: Hypertension controlled monitor blood pressure (3) Hyperkalemia, diminished renal excretion Current Visit: No Status: Acute Plan to address problem: Hyperkalemia: Potassium 5.4 We'll give Kayexalate 30 g 1 Low potassium diet Hemodialysis intiated. (4) Acidosis Current Visit: No Status: Acute Plan to address problem: Metabolic acidosis Initiate hemodialysis Subjective Interval history: 63 year old gentleman Syrian speaking only with medical history significant for HTN, end-stage renal disease on hemodialysis Thursday via a right arm AV fistula at [facility] last session of dialysis was . patient seen today potassium elevated today Discussed with the via lead installer avoid high potassium foods including banana ,orange juice, tomatoes no lower extremity edema or shortness of breath he feels well. Objective - Vital Signs Vital signs: Vital Signs - 12hr 03/17/19 03/17/19 00:19 06:12 Temperature 97.6 F 97.8 F Pulse Rate 92 H Respiratory 16 16 Rate Blood Pressure 90/51 90/51 O2 Sat by Pulse 98 Oximetry - General Appearance General appearance: well-developed, well-nourished EENT: ATNC, PERRL Neck: no JVD, JVD Respiratory: Present: Clear to Ascultation Cardiology: regular, S1S2 Gastrointestinal: normal, normoactive bowel sounds Integumentary: no rash Neurologic: alert and oriented x3, CN 3-12 intact Psychiatric: mood/affect appropriate - Lab 03/15/19 13:23 03/17/19 07:32 Most recent lab results Calcium 8.7 mg/dL (8.4-10.2) 03/17/19 07:32 Phosphorus 4.50 mg/dL (2.5-4.5) 03/15/19 13:23 Medications & Allergies - Medications Allergies/Adverse Reactions: Allergies No Known Allergies Allergy (Verified 03/17/19 12:18) Home Medications: Home Medications Medication Instructions Recorded Confirmed Last Taken Type Allopurinol [Zyloprim] 100 mg PO QDAY 03/15/19 03/15/19 Unknown History Calcium Acetate [Phoslo] 667 mg PO TID 03/15/19 03/15/19 Unknown History Insulin Detemir [Levemir VIAL] 5 units SUB-Q QAM 03/15/19 03/15/19 Unknown History Megestrol [Megace] 10 ml PO QDAY 03/15/19 03/15/19 Unknown History Omeprazole 20 mg PO BID 03/15/19 03/15/19 Unknown History Sertraline [Zoloft] 50 mg PO QDAY 03/15/19 03/15/19 Unknown History Sodium Bicarbonate 650 mg PO QID 03/15/19 03/15/19 Unknown History Active Medications: Generic Name Dose Route Start Last Admin Trade Name Freq PRN Reason Stop Dose Admin Acetaminophen 650 mg 03/15/19 21:00 Tylenol PO Q4H PRN Pain MILD(1-3)/Fever >100.5/NATHAN Allopurinol 100 mg 03/15/19 22:00 03/17/19 09:42 Zyloprim PO 100 mg QDAY ALMA Administration Calcium Acetate 667 mg 03/16/19 08:00 03/17/19 09:41 Phoslo PO 667 mg TIDWM ALMA Administration Heparin Sodium (Porcine) 5,000 unit 03/16/19 01:30 03/17/19 09:41 Heparin SUB-Q 5,000 unit Q12HR ALMA Administration Hydralazine HCl 10 mg 03/16/19 12:00 Apresoline IV Q4H PRN Blood Pressure Insulin Glargine 5 units 03/16/19 10:00 03/17/19 09:37 Lantus SUB-Q 5 units QAM ALMA Administration Megestrol Acetate 400 mg 03/15/19 22:00 03/17/19 09:42 Megace PO 400 mg QDAY [facility]MA Administration Morphine Sulfate 2 mg 03/16/19 16:00 Morphine IV 03/17/19 15:59 Q4H PRN Pain, Moderate (4-6) Ondansetron HCl 4 mg 03/15/19 21:00 Zofran IV Q8H PRN Nausea And Vomiting Oxycodone/Acetaminophen 1 tab 03/16/19 16:00 03/17/19 10:00 Percocet 5/325 PO 1 tab Q6H PRN Administration Pain, Moderate (4-6) Pantoprazole Sodium 20 mg 03/15/19 22:00 03/17/19 09:40 Protonix PO 20 mg BID ALMA Administration Sertraline HCl 50 mg 03/15/19 22:00 03/17/19 09:41 Zoloft PO 50 mg QDAY [facility]MA Administration Sodium Bicarbonate 650 mg 03/15/19 22:00 03/17/19 09:41 Sodium Bicarbonate PO 650 mg QID ALMA Administration Sodium Chloride 10 ml 03/15/19 22:00 03/17/19 09:42 Sodium Chloride Flush Syringe 10 Ml IV 10 ml BID ALMA Administration Sodium Chloride 10 ml 03/15/19 21:00 Sodium Chloride Flush Syringe 10 Ml IV PRN PRN LINE FLUSH
--- NOTE | 2019-03-17 17:32 | Event Note ---
Date: 03/17/19 Pt presented with thrombosed AVG. His arm is contracted and not conducive to percutaneous intervention. A perma-cath was placed to provide HD access. A vein mapping has ordered to evaluate for LUE Access potential. The study is currently pending. No objection to discharge once the study is completed, and the pt is cleared medically. The Pt can follow up in our office as an outpt to be evaluated for new correction AV access. Discussed with the hospitalist earlier today.
--- NOTE | 2019-03-18 08:18 | Discharge Summary ---
<CHANCE MORAN - Last Filed: 03/18/19 10:56> Providers - Providers Date of Admission: 03/15/19 21:00 Date of discharge: 03/18/19 Attending physician: FRANC LAGUNAS MD 03/15/19 14:47 Consult to Physician [CONS] Routine Comment: DISCUSSED WITH VASCULAR SURGERY Team. Consulting Provider: DAVID MALIK Physician Instructions: Reason For Exam: clotted vascular access. 03/16/19 01:08 Consult to Physician [CONS] Routine Comment: Consulting Provider: KUN ISLAS Physician Instructions: Reason For Exam: ESRD Primary care physician: EMELYN YE Hospitalization Reason for admission: Malfunctioning right arm AV Fistula Condition: Stable Hospital course: 63 y.o. Kazakh speaking male with history of CVA with right sided weakness, HTN, end-stage renal disease on hemodialysis T/ / who presented to the ED on 03/15 with c/o clotted AV graft. Pt states that he was unable to receive HD on 03/12 because his AV graft had clotted preventing access. He was sent to the ED on 03/15 after presenting to dialysis clinic with clotted access again. He was admitted to Medical floor. Vascular surgery was consulted. Vascular surgery was unable to perform thrombectomy d/t contracture of pt's right arm; instead he underwent Left IJ Permacath placement on 03/16/19. He was treated with Kayexalate x 2 for hyperkalemia. He was dialyzed on 03/17, and next scheduled dialysis will be on Monday 03/19. He will continue with OP dialysis with [facility]. Pt underwent vein mapping this morning and will follow up as outpatient with Vascular surgery to be evaluated for new long-term Av access.. He is being discharged to home with HHN. Discharge planning has been discussed with pt and his via use of food service coordinator. They verbalized understanding and are in agreement. Diagnosis: Malfunctioning right arm AV Fistula ESRD HTN Hyperkalemia IDDM GERD Hx Gout Hx of Depression Hx of CVA- with right sided weakness DVT PPX Disposition: DC/TX-06 HOME UNDER HOME HLTH Time spent for discharge: 33 min Core Measure Documentation - Palliative Care Palliative Care/ Comfort Measures: Not Applicable - Core Measures Any of the following diagnoses?: none - VTE Discharge Requirements Deep Vein Thrombosis/Pulmonary Embolism Present on Admission: No Contraindication No Overlap Therapy order at DC: Not Indicated Exam - Physical Exam Narrative exam: General appearance: Present: no acute distress - EENT Eyes: Present: PERRL, EOM intact ENT: hearing intact - Neck Neck: Present: supple, normal ROM, other (Left IJ Permacath ) - Respiratory Respiratory effort: normal Respiratory: bilateral: diminished - Cardiovascular Heart Sounds: Present: S1 & S2 - Extremities Extremities: No edema, abnormal (Right Arm Vascath) Extremity abnormal: other - Abdominal General gastrointestinal: soft, non-tender - Integumentary Integumentary: Present: warm, dry - Psychiatric Psychiatric: cooperative - Neurologic Neurologic: CNII-XII intact - Constitutional Vitals: Temp Pulse Resp BP Pulse Ox 99.5 F 105 H 15 84/51 96 03/18/19 05:35 03/18/19 05:35 03/18/19 05:35 03/18/19 05:35 03/18/19 05:35 Plan Activity: advance as tolerated Diet: low salt (low potassium diet), diabetic Follow up with: EMELYN YE MD [Primary Care Provider] - 7 Days JEFF PAREKH MD [Staff Physician] - 7 Days <FRANC LAGUNAS - Last Filed: 03/18/19 16:28> Providers - Providers Date of Admission: 03/15/19 21:00 Attending physician: FRANC LAGUNAS MD 03/15/19 14:47 Consult to Physician [CONS] Routine Comment: DISCUSSED WITH VASCULAR SURGERY Team. Consulting Provider: DAVID MALIK Physician Instructions: Reason For Exam: clotted vascular access. 03/16/19 01:08 Consult to Physician [CONS] Routine Comment: Consulting Provider: KUN ISLAS Physician Instructions: Reason For Exam: ESRD Primary care physician: EMELYN YE Hospitalization Hospital course: I saw and evaluated the patient. I agree with the findings and the plan of care as documented in the Nurse Practitioner's chance Moran discharge note. patient admitted for malfunction of AVG. Vascular evaluated the patient and did a permcath and DC home with HH, O/P vascular surgery appointment. Exam - Constitutional Vitals: Temp Pulse Resp BP Pulse Ox 97.1 F L 98 H 18 77/50 99 03/18/19 11:58 03/18/19 11:58 03/18/19 11:58 03/18/19 11:58 03/18/19 11:58
[2019-03-18 08:40] LABS: Calcium 8.2 mg/dL (8.4-10.2)
--- NOTE | 2019-03-18 10:18 | Vascular Lab Report ---
PROCEDURE: VL VENOUS DUPLEX UE LT HISTORY: lt.arm vein mapping for avf/avg;esrd FINDINGS: Real-time ultrasound of the left arm was performed using grayscale and color Doppler images . These images demonstrate thrombus within the left internal jugular vein. No DVT is seen in the left s ubclavian vein, left axillary vein or left brachial vein. The left subclavian vein measures 0.67 cm; left axillary vein 0.69 cm; brachial veins at level of pro ximal biceps, 0.44 cm and 0.44 cm; brachial veins at level of mid biceps 0.40 cm and 0.54 cm; left br achial veins at level of distal biceps 0.33 cm and 0.23 cm; basilic vein at level of mid biceps 0.25 cm; basilic veins at the level of distal biceps 0.26 cm; basilic vein at level of antecubitum 0.18 cm ; basilic veins at level of proximal forearm 0.09 cm; basilic veins at level of mid forearm 0.06 cm; basilic vein at level of distal forearm 0.05 cm; cephalic vein at level of proximal biceps 0.06 cm; c ephalic vein at level of mid biceps 0.04 cm; cephalic vein at level of distal biceps 0.05 cm; cephali c vein at level antecubitum 0.10 cm; cephalic vein at level of proximal forearm 0.06 cm; cephalic vei n at level of mid forearm 0.06 cm; cephalic vein at level of distal forearm 0.09 cm. IMPRESSION: Deep venous thrombus in left internal jugular vein This document is electronically signed by Cole Colon MD., March 18 2019 10:16:13 AM ET
[2019-03-18] MEDS: ZOLOFT PO SCH (12:03)
[2019-03-18] MEDS: SODIUM BICARBONATE PO SCH (12:03)
[2019-03-18] MEDS: PROTONIX PO SCH (12:03)
[2019-03-18] MEDS: ZYLOPRIM PO SCH (12:04)
[2019-03-18] MEDS: SODIUM CHLORIDE FLUSH SYRINGE 10 ML IV SCH (12:04)
[2019-03-18] MEDS: PHOSLO PO SCH ×2 (12:05→12:08)
[2019-03-18] MEDS: HEPARIN SUB-Q SCH (12:05)
[2019-03-18] MEDS: MEGACE PO SCH (12:08)
[2019-03-18] MEDS: LANTUS SUB-Q SCH (12:09)
[2019-03-18 14:09] VITALS: BP 77/50
--- NOTE | 2019-03-18 16:30 | Progress Note ---
Assessment and Plan - Patient Problems (1) End stage renal disease Status: Acute Plan to address problem: End stage renal disease AV fistula is clotted Discussed with vascular surgery team regarding declotting access versus tunneled dialysis catheter Placement Vascular surgery unable to perform thrombectomy due to contractures Has had tunnelled dialysis catheter placed Plan for new access creation per vascular surgery notes. (2) HTN (hypertension) Status: Acute Plan to address problem: Hypertension controlled monitor blood pressure (3) Hyperkalemia, diminished renal excretion Status: Acute Plan to address problem: Hyperkalemia: Potassium 5.4 We'll give Kayexalate 30 g 1 Low potassium diet Completed hemodialysis (4) Acidosis Status: Acute Plan to address problem: Metabolic acidosis Resolved with hemodialysis Subjective Interval history: 63 year old gentleman Yoruba speaking only with medical history significant for HTN, end-stage renal disease on hemodialysis Thursday via a right arm AV fistula at [facility] last session of dialysis was . patient seen today Status post AV mapping in preparation for new access creation Discussed with the via diplomatic interpreter/translator avoid high potassium foods including banana ,orange juice, tomatoes and to ensure he goes to dialysis tomorrow for follow-up with vascular surgery outpatient no lower extremity edema or shortness of breath he feels well. Objective - Vital Signs Vital signs: Vital Signs - 12hr 03/18/19 03/18/19 05:35 11:58 Temperature 99.5 F 97.1 F L Pulse Rate 105 H 98 H Respiratory 15 18 Rate Blood Pressure 84/51 77/50 O2 Sat by Pulse 96 99 Oximetry - General Appearance General appearance: well-developed, well-nourished EENT: ATNC, PERRL Neck: no JVD Respiratory: Present: Clear to Ascultation Cardiology: regular, S1S2 Gastrointestinal: normal, normoactive bowel sounds, other (right lower quadrant colostomy) Integumentary: no rash Neurologic: alert and oriented x3, CN 3-12 intact Psychiatric: mood/affect appropriate - Lab 03/15/19 13:23 03/18/19 08:08 Most recent lab results Calcium 8.2 mg/dL (8.4-10.2) L 03/18/19 08:08 Phosphorus 4.50 mg/dL (2.5-4.5) 03/15/19 13:23 - Imaging Chest x-ray: image reviewed Medications & Allergies - Medications Allergies/Adverse Reactions: Allergies No Known Allergies Allergy (Verified 03/17/19 12:18) Home Medications: Home Medications Medication Instructions Recorded Confirmed Last Taken Type Allopurinol [Zyloprim] 100 mg PO QDAY 03/15/19 03/15/19 Unknown History Calcium Acetate [Phoslo] 667 mg PO TID 03/15/19 03/15/19 Unknown History Insulin Detemir [Levemir VIAL] 5 units SUB-Q QAM 03/15/19 03/15/19 Unknown History Megestrol [Megace] 10 ml PO QDAY 03/15/19 03/15/19 Unknown History Omeprazole 20 mg PO BID 03/15/19 03/15/19 Unknown History Sertraline [Zoloft] 50 mg PO QDAY 03/15/19 03/15/19 Unknown History Sodium Bicarbonate 650 mg PO QID 03/15/19 03/15/19 Unknown History
== END 2019-03-18 14:00 | disposition home health service (06) | DRG 314 ==
LOC: ED 12:29 → 3A 21:00
PROVIDERS: ADMIT Internal Medicine; ATTEND Internal Medicine
PROC: 0JH63XZ Insertion of Tunneled Vascular Access Device into Chest Subcutaneous Tissue and Fascia, Percutaneous Approach (ICD-10-PCS; principal; 2019-03-16)
PROC: 02H633Z Insertion of Infusion Device into Right Atrium, Percutaneous Approach (ICD-10-PCS; 2019-03-16)
PROC: B544ZZA Ultrasonography of Left Jugular Veins, Guidance (ICD-10-PCS; 2019-03-16)
PROC: 5A1D70Z Performance of Urinary Filtration, Intermittent, Less than 6 Hours Per Day (ICD-10-PCS; 2019-03-16)
PROC: 5A1D70Z Performance of Urinary Filtration, Intermittent, Less than 6 Hours Per Day (ICD-10-PCS; 2019-03-17)
DX: T82.868A Thrombosis due to vascular prosthetic devices, implants and grafts, initial encounter (principal); N18.6 End stage renal disease; T82.41XA Breakdown (mechanical) of vascular dialysis catheter, initial encounter; I69.351 Hemiplegia and hemiparesis following cerebral infarction affecting right dominant side; I12.0 Hypertensive chronic kidney disease with stage 5 chronic kidney disease or end stage renal disease; E87.2 Acidosis; E11.22 Type 2 diabetes mellitus with diabetic chronic kidney disease; K21.9 Gastro-esophageal reflux disease without esophagitis; M10.9 Gout, unspecified; F32.9 Major depressive disorder, single episode, unspecified; E87.70 Fluid overload, unspecified; Y83.2 Surgical operation with anastomosis, bypass or graft as the cause of abnormal reaction of the patient, or of later complication, without mention of misadventure at the time of the procedure; Z99.2 Dependence on renal dialysis; Z82.49 Family history of ischemic heart disease and other diseases of the circulatory system; Z79.4 Long term (current) use of insulin; Z79.899 Other long term (current) drug therapy; Y92.89 Other specified places as the place of occurrence of the external cause
CPT/HCPCS: 36415; 36558; 71045; 77001; 80048; 80053; 80074; 82962; 83036; 84100; 85027; 93005; 93010; G0378; C1750; C1751; C1769; C1894; J0690; J1644; J1815; J2250; J3010; J7030; J7040

== ENCOUNTER 2021-08-22 09:03 | Inpatient (IN) | payer MEDICARE ==
[2021-08-22] MEDS ORDERED: SODIUM CHLORIDE 0.9% 1000 ML IV SOLN IV ONE (09:56)
--- NOTE | 2021-08-22 10:03 | Emergency Department Report ---
ED General Adult HPI - General Chief complaint: Medical Clearance Stated complaint: DIAYLISIS Time Seen by Provider: 08/22/21 09:36 Source: patient Mode of arrival: Wheelchair Limitations: No Limitations - History of Present Illness Initial comments: Patient came in for low blood pressure. History cannot be obtained accurately from him even with Iraqi translation. He is a poor historian. He has had a prior stroke and seems to have some degree of aphasia, both expressive and receptive. He complains that his right leg is numb and tingly.That has been going on for some time. He denies chest pain. He denies abdominal pain. He denies any other complaints other than his right leg. He keeps pointing to his right leg below the knee and repeating that it is numb. He ultimately does admit that he has had a stroke before. He cannot tell us when or provide any other information. - Related Data Home Medications Medication Instructions Recorded Confirmed Last Taken Calcium Acetate [Phoslo] 667 mg PO TID 03/15/19 03/15/19 Unknown Insulin Detemir [Levemir VIAL] 5 units SUB-Q QAM 03/15/19 03/15/19 Unknown Omeprazole 20 mg PO BID 03/15/19 03/15/19 Unknown Sertraline [Zoloft] 50 mg PO QDAY 03/15/19 03/15/19 Unknown Sodium Bicarbonate 650 mg PO QID 03/15/19 03/15/19 Unknown allopurinoL [Zyloprim] 100 mg PO QDAY 03/15/19 03/15/19 Unknown megestroL [Megestrol] 10 ml PO QDAY 03/15/19 03/15/19 Unknown Allergies Allergy/AdvReac Type Severity Reaction Status Date / Time No Known Allergies Allergy Verified 03/17/19 12:18 ED Review of Systems ROS: Stated complaint: DIAYLISIS Other details as noted in HPI Comment: Unobtainable due to pts medical conditions (poor historian) ED Past Medical Hx - Past Medical History Hx Hypertension: Yes Hx CVA: Yes Hx Renal Disease: Yes Hx HIV: No Additional medical history: dialysis. history is obtained from review of old records. - Surgical History Additional Surgical History: unknown other than bilateral AV fistula on exam - Social History Smoking Status: Former Smoker - Medications Home Medications: Home Medications Medication Instructions Recorded Confirmed Last Taken Type Calcium Acetate [Phoslo] 667 mg PO TID 03/15/19 03/15/19 Unknown History Insulin Detemir [Levemir VIAL] 5 units SUB-Q QAM 03/15/19 03/15/19 Unknown History Omeprazole 20 mg PO BID 03/15/19 03/15/19 Unknown History Sertraline [Zoloft] 50 mg PO QDAY 03/15/19 03/15/19 Unknown History Sodium Bicarbonate 650 mg PO QID 03/15/19 03/15/19 Unknown History allopurinoL [Zyloprim] 100 mg PO QDAY 03/15/19 03/15/19 Unknown History megestroL [Megestrol] 10 ml PO QDAY 03/15/19 03/15/19 Unknown History ED Physical Exam - General Limitations: No Limitations, Other ( poor historian even with Iraqi interpretation) General appearance: alert, in no apparent distress - Head Head exam: Present: atraumatic, normocephalic, normal inspection - Eye Eye exam: Present: normal appearance, EOMI. Absent: scleral icterus - ENT ENT exam: Present: mucous membranes dry, normal external ear exam - Neck Neck exam: Present: normal inspection, other ( trachea midline) - Respiratory Respiratory exam: Present: normal lung sounds bilaterally. Absent: respiratory distress - Cardiovascular Cardiovascular Exam: Present: regular rate, normal rhythm - GI/Abdominal GI/Abdominal exam: Present: soft. Absent: tenderness - Extremities Exam Extremities exam: Present: normal capillary refill, other ( AV fistula in both arms with good thrill and bruit bilaterally) - Back Exam Back exam: Present: normal inspection - Neurological Exam Neurological exam: Present: alert, altered ( confused), CN II-XII intact, reflexes normal, other (There is a left sided weakness noted. He also seems to have some degree of aphasia) - Skin Skin exam: Present: warm, dry ED Course Vital Signs 08/22/21 08/22/21 08/22/21 09:19 09:26 10:05 Temperature 98.5 F 98.4 F Pulse Rate 83 63 Respiratory 16 16 19 Rate Blood Pressure 82/26 Blood Pressure 82/26 [Left] O2 Sat by Pulse 94 97 100 Oximetry 08/22/21 08/22/21 10:08 10:44 Temperature Pulse Rate 88 81 Respiratory 19 19 Rate Blood Pressure Blood Pressure 80/64 107/57 [Left] O2 Sat by Pulse 100 99 Oximetry - Reevaluation(s) Reevaluation #1: 08/22/21 10:02 Even with Iraqi interpretation, history is limited. IV and labs were ordered. Reevaluation #2: 08/22/21 10:56 blood pressures improving with IV hydration. Reevaluation #3: 08/22/21 12:15 Labs have been noted. Patient does have a slight elevation in lactic acid as well as troponin levels. He has end-stage renal disease and is dialysis not completed today. At this time, I do not have any obvious source of infection. He does not urinate so a UTI would be unlikely. Patient does not have any peritoneal finding. There is no evidence of skin infection or cellulitis. Etiology of her symptoms remains unclear. Regardless, his hypotension has responded to IV hydration. I do not believe that he requires pressors at this time. As there is no source for infection, empiric antibiotics have not been instituted. Patient will be admitted to the hospitalist for ongoing management. ED Medical Decision Making - Lab Data Result diagrams: 08/22/21 10:47 08/22/21 10:47 Critical Care Time: Yes Critical care attestation.: If time is entered above; I have spent that time in minutes in the direct care of this critically ill patient, excluding procedure time. Critical Care Time: Critical care time of 45 minutes based on hypotension with elevated troponin and end-stage renal disease. ED Disposition Clinical Impression: Transient hypotension, Confusion, ESRD (end stage renal disease) on dialysis, Lactic acid acidosis, Elevated troponin, Pancytopenia Disposition: ADMITTED INPATIENT Is pt being admited?: Yes Condition: Stable
--- NOTE | 2021-08-22 10:20 | XRay Report ---
XR chest 1V ap INDICATION / CLINICAL INFORMATION: hypotension. COMPARISON: 03/15/2019 FINDINGS: SUPPORT DEVICES: None. HEART /PULMONARY VASCULATURE: No significant abnormality. LUNGS / PLEURA: No significant pulmonary or pleural abnormality. No pneumothorax. ADDITIONAL FINDINGS: No significant additional findings. IMPRESSION: 1. No acute findings. Signer Name: Guy Turcios MD Signed: 08/22/2021 10:16 AM Workstation Name: [id number]
[2021-08-22 11:51] LABS: Basophils % (Auto) 0.5 % (0.0-1.8); Eosinophils # (Auto) 0.1 K/mm3 (0.0-0.4); Eosinophils % (Auto) 1.3 % (0.0-4.3); Hematocrit 33.6 % (35.5-45.6); Hemoglobin 11.1 gm/dl (11.8-15.2); Lymphocytes # (Auto) 0.4 K/mm3 (1.2-5.4); Lymphocytes % (Auto) 11.1 % (13.4-35.0); Mean Corpuscular HGB Conc 33 % (32-34); Mean Corpuscular Volume 95 fl (84-94); Monocytes # (Auto) 0.4 K/mm3 (0.0-0.8); Monocytes % (Auto) 9.6 % (0.0-7.3); Platelet Count 118 K/mm3 (140-440); Red Blood Count 3.52 M/mm3 (3.65-5.03); Red Cell Distribution Width 15.8 % (13.2-15.2)
[2021-08-22 12:03] LABS: Albumin 3.1 g/dL (3.9-5); Calcium 7.9 mg/dL (8.4-10.2)
--- NOTE | 2021-08-22 12:14 | History and Physical Report ---
History of Present Illness Chief complaint: They sent me here from dialysis History of present illness: 65 YO Male with GERD, ESRD on HD(T,R,Sa), Gout, DM, CVA complicated by Aphasia presents to ED for evaluation. Patient reports "I was sent here". Patient has diminished cognition and provides minimal history. Patient history taken from EMS staff, as well as the dialysis center staff. As per staff the patient was found to be hypotensive during dialysis. Patient recommended to seek further care. Patient transported to [facility] via private vehicle for further care and evaluation of the aforementioned symptoms. The patient was seen and evaluated in the emergency department. All lab and imaging studies reviewed. Patient found to have end-stage renal disease with concomitant hypotension with a blood pressure of 88/31. The patient was placed in observation status and admitted to the medical floor. Nephrology team consulted in ED. Patient denies fever, chills, chest pain, palpitations, productive cough, recent ill contacts, or known exposure to COVID-19. Prior admission on 03/15/2019 reviewed. All med ication listed at time of admission has been reconciled. Advanced care planning conducted in ED. Past History Past Medical History: diabetes, ESRD, GERD, stroke, other (See HPI) Past Surgical History: Other (Dialysis access) Social history: single. denies: smoking, alcohol abuse, prescription drug abuse Family history: diabetes, hypertension Medications and Allergies Allergies Allergy/AdvReac Type Severity Reaction Status Date / Time No Known Allergies Allergy Verified 03/17/19 12:18 Home Medications Medication Instructions Recorded Confirmed Last Taken Type Calcium Acetate [Phoslo] 667 mg PO TID 03/15/19 03/15/19 Unknown History Insulin Detemir [Levemir VIAL] 5 units SUB-Q QAM 03/15/19 03/15/19 Unknown History Omeprazole 20 mg PO BID 03/15/19 03/15/19 Unknown History Sertraline [Zoloft] 50 mg PO QDAY 03/15/19 03/15/19 Unknown History Sodium Bicarbonate 650 mg PO QID 03/15/19 03/15/19 Unknown History allopurinoL [Zyloprim] 100 mg PO QDAY 03/15/19 03/15/19 Unknown History megestroL [Megestrol] 10 ml PO QDAY 03/15/19 03/15/19 Unknown History Review of Systems ROS unobtainable: due to mental status Exam - Constitutional Vitals: Temp Pulse Resp BP Pulse Ox 98.4 F 81 19 107/57 99 08/22/21 09:26 08/22/21 10:44 08/22/21 10:44 08/22/21 10:44 08/22/21 10:44 General appearance: Present: mild distress - EENT Eyes: Present: PERRL ENT: clear oral mucosa, hearing decreased - Neck Neck: Present: supple, normal ROM - Respiratory Respiratory effort: normal Respiratory: bilateral: CTA - Cardiovascular Heart Sounds: Present: S1 & S2. Absent: rub, click - Extremities Extremities: pulses symmetrical, No edema Peripheral Pulses: within normal limits - Abdominal General gastrointestinal: Present: soft, non-tender, non-distended, normal bowel sounds Male genitourinary: Present: normal - Integumentary Integumentary: Present: clear, erythema - Musculoskeletal Musculoskeletal: generalized weakness - Psychiatric Psychiatric: no appropriate mood/affect, no intact judgment & insight - Neurologic Neurologic: CNII-XII intact, focal deficits, moves all extremities, gait normal HEART Score - HEART Score Troponin: Troponin T 0.069 ng/mL (0.00-0.029) H 08/22/21 10:47 Results - Labs CBC & Chem 7: 08/22/21 10:47 08/22/21 10:47 Labs: Abnormal lab results 08/22/21 08/22/21 08/22/21 Range/Units 10:47 10:47 10:47 WBC 4.0 L (4.5-11.0) K/mm3 RBC 3.52 L (3.65-5.03) M/mm3 Hgb 11.1 L (11.8-15.2) gm/dl Hct 33.6 L (35.5-45.6) % MCV 95 H (84-94) fl RDW 15.8 H (13.2-15.2) % Plt Count 118 L (140-440) K/mm3 Lymph % (Auto) 11.1 L (13.4-35.0) % [place] % (Auto) 9.6 H (0.0-7.3) % Lymph # (Auto) 0.4 L (1.2-5.4) K/mm3 Seg Neutrophils % 77.5 H (40.0-70.0) % Carbon Dioxide 19 L (22-30) mmol/L BUN 61 H (9-20) mg/dL Creatinine 20.2 H (0.8-1.3) mg/dL Glucose 195 H (75-100) mg/dL Lactic Acid 2.10 H* (0.7-2.0) mmol/L Calcium 7.9 L (8.4-10.2) mg/dL AST 68 H (5-40) units/L ALT 62 H (7-56) units/L Alkaline Phosphatase 231 H (35-129) units/L Troponin T 0.069 H (0.00-0.029) ng/mL Total Protein 5.6 L (6.3-8.2) g/dL Albumin 3.1 L (3.9-5) g/dL Assessment and Plan - Patient Problems (1) End stage renal disease Current Visit: No Status: Acute Plan to address problem: Nephrology team consulted in ED, dialysis as per renal team, avoid nephrotoxic agents. Monitor fluid balance (2) Metabolic acidosis Current Visit: Yes Status: Acute Plan to address problem: Supportive care, dialysis as per renal team, BMP, repeat BMP in a.m. (3) DVT prophylaxis Current Visit: Yes Status: Acute Plan to address problem: SCD to bilateral lower extremities while in bed (4) Advance care planning Current Visit: Yes Status: Acute Plan to address problem: Disease education conducted, care plan discussed, diagnosis discussed, prognosis discussed, +30 minutes.
[2021-08-22] MEDS ORDERED: ALBUTEROL 2.5 MG/3 ML NEBU IH PRN (12:15)
[2021-08-22] MEDS ORDERED: oxyCODONE /ACETAMINOPHEN 5-325MG TAB PO PRN ×2 (12:15→13:00)
[2021-08-22] MEDS ORDERED: HYDROmorphone 1 MG/1 ML INJ IV PRN ×2 (12:15→13:00)
[2021-08-22] MEDS ORDERED: ONDANSETRON 4 MG/2 ML INJ IV PRN (12:15)
[2021-08-22 12:16] LABS: Chol/HDL Ratio 1.65 %
[2021-08-22] MEDS ORDERED: ACETAMINOPHEN 325 MG TAB PO PRN (13:00)
[2021-08-22] MEDS: CALCIUM ACETATE 667 MG CAP PO SCH ×2 (13:37→22:12)
[2021-08-22] MEDS: SODIUM BICARBONATE 650 MG TAB PO SCH ×3 (13:38→22:12)
[2021-08-22] MEDS ORDERED: SODIUM CHLORIDE 0.9% 1000 ML 1,000 ML ONE (14:08)
[2021-08-22] MEDS: PANTOPRAZOLE 20 MG TAB PO SCH (20:50)
[2021-08-22] MEDS ORDERED: NON-FORMULARY EACH (Omeprazole [Omeprazole] 20 MG Capsule.Dr) PO SCH (22:00)
[2021-08-23 08:50] LABS: Calcium 8.6 mg/dL (8.4-10.2)
--- NOTE | 2021-08-23 09:34 | Progress Note ---
Assessment and Plan Assessment and plan: ESRD. Hypotension Diabetes mellitus type 2. 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 History of gout. GERD. 08/23/2021. Hypotension has resolved with systolic blood pressure in the 150s this morning. Consider midodrine if patient has any more episodes. We will continue to monitor today. Anticipate discharge in a.m. if remains stable. Continue Accu-Cheks and SSRI. Continue hemodialysis per nephrology rec ommendations. History Interval history: No new issues overnight Hospitalist Physical - Constitutional Vitals: Temp Pulse Resp BP Pulse Ox 98.2 F 98 H 18 158/101 95 08/23/21 04:36 08/23/21 04:36 08/23/21 04:36 08/23/21 04:36 08/23/21 04:36 General appearance: Present: no acute distress - EENT Eyes: Present: PERRL, EOM intact ENT: hearing intact, clear oral mucosa, dentition normal - Neck Neck: Present: supple, normal ROM - Respiratory Respiratory effort: normal Respiratory: bilateral: CTA - Cardiovascular Rhythm: regular Heart Sounds: Present: S1 & S2. Absent: gallop, rub - Extremities Extremities: no ischemia, No edema, Full ROM - Abdominal General gastrointestinal: soft, non-tender, non-distended, normal bowel sounds - Integumentary Integumentary: Present: clear, warm, dry - Neurologic Neurologic: CNII-XII intact, moves all extremities HEART Score - HEART Score Troponin: Troponin T 0.069 ng/mL (0.00-0.029) H 08/22/21 10:47 Results - Labs CBC & Chem 7: 08/22/21 10:47 08/23/21 08:03 Labs: Laboratory Last Values WBC 4.0 K/mm3 (4.5-11.0) L 08/22/21 10:47 RBC 3.52 M/mm3 (3.65-5.03) L 08/22/21 10:47 Hgb 11.1 gm/dl (11.8-15.2) L 08/22/21 10:47 Hct 33.6 % (35.5-45.6) L 08/22/21 10:47 MCV 95 fl (84-94) H 08/22/21 10:47 MCH 31 pg (28-32) 08/22/21 10:47 MCHC 33 % (32-34) 08/22/21 10:47 RDW 15.8 % (13.2-15.2) H 08/22/21 10:47 Plt Count 118 K/mm3 (140-440) L 08/22/21 10:47 Lymph % (Auto) 11.1 % (13.4-35.0) L 08/22/21 10:47 [place] % (Auto) 9.6 % (0.0-7.3) H 08/22/21 10:47 Eos % (Auto) 1.3 % (0.0-4.3) 08/22/21 10:47 Baso % (Auto) 0.5 % (0.0-1.8) 08/22/21 10:47 Lymph # (Auto) 0.4 K/mm3 (1.2-5.4) L 08/22/21 10:47 [place] # (Auto) 0.4 K/mm3 (0.0-0.8) 08/22/21 10:47 Eos # (Auto) 0.1 K/mm3 (0.0-0.4) 08/22/21 10:47 Baso # (Auto) 0.0 K/mm3 (0.0-0.1) 08/22/21 10:47 Seg Neutrophils % 77.5 % (40.0-70.0) H 08/22/21 10:47 Seg Neutrophils # 3.1 K/mm3 (1.8-7.7) 08/22/21 10:47 Sodium 140 mmol/L (137-145) 08/23/21 08:03 Potassium 5.7 mmol/L (3.6-5.0) H D 08/23/21 08:03 Chloride 103.5 mmol/L (98-107) 08/23/21 08:03 Carbon Dioxide 20 mmol/L (22-30) L 08/23/21 08:03 Anion Gap 22 mmol/L 08/23/21 08:03 BUN 67 mg/dL (9-20) H 08/23/21 08:03 Creatinine 23.0 mg/dL (0.8-1.3) H 08/23/21 08:03 Estimated GFR 2 ml/min 08/23/21 08:03 BUN/Creatinine Ratio 3 % 08/23/21 08:03 Glucose 99 mg/dL (75-100) 08/23/21 08:03 Lactic Acid 1.40 mmol/L (0.7-2.0) 08/23/21 00:13 Calcium 8.6 mg/dL (8.4-10.2) 08/23/21 08:03 Total Bilirubin 0.30 mg/dL (0.1-1.2) 08/22/21 10:47 AST 68 units/L (5-40) H 08/22/21 10:47 ALT 62 units/L (7-56) H 08/22/21 10:47 Alkaline Phosphatase 231 units/L (35-129) H 08/22/21 10:47 Troponin T 0.069 ng/mL (0.00-0.029) H 08/22/21 10:47 Total Protein 5.6 g/dL (6.3-8.2) L 08/22/21 10:47 Albumin 3.1 g/dL (3.9-5) L 08/22/21 10:47 Albumin/Globulin Ratio 1.2 % 08/22/21 10:47 Triglycerides 87 mg/dL (2-149) 08/22/21 10:47 Cholesterol 81 mg/dL (50-199) 08/22/21 10:47 LDL Cholesterol Direct 20 mg/dL (50-130) L 08/22/21 10:47 HDL Cholesterol 49 mg/dL (40-59) 08/22/21 10:47 Cholesterol/HDL Ratio 1.65 % 08/22/21 10:47 Microbiology: Microbiology 08/22/21 10:47 Peripheral/Venous Blood Culture - Preliminary Culture in Progress 08/22/21 10:47 Peripheral/Venous Blood Culture - Preliminary Culture in Progress Active Medications - Current Medications Current Medications: Generic Name Dose Route Start Last Admin Trade Name Freq PRN Reason Stop Dose Admin Acetaminophen 650 mg 08/22/21 13:00 Acetaminophen 325 Mg Tab PO Q4H PRN Pain MILD(1-3)/Fever >100.5/NATHAN Albuterol 2.5 mg 08/22/21 12:15 Albuterol 2.5 Mg/3 Ml Nebu IH Q4HRT PRN Shortness Of Breath Allopurinol 100 mg 08/23/21 10:00 Allopurinol 100 Mg Tab PO QDAY ALMA Calcium Acetate 667 mg 08/23/21 08:30 Calcium Acetate 667 Mg Cap PO TIDWM ALMA Hydromorphone HCl 0.5 mg 08/22/21 13:00 Hydromorphone 1 Mg/1 Ml Inj IV Q23H PRN Pain , Severe (7-10) Ondansetron HCl 4 mg 08/22/21 12:15 Ondansetron 4 Mg/2 Ml Inj IV Q8H PRN Nausea And Vomiting Oxycodone/Acetaminophen 1 tab 08/22/21 13:00 Oxycodone /Acetaminophen 5-325mg Tab PO Q16H PRN Pain, Moderate (4-6) Pantoprazole Sodium 20 mg 08/22/21 22:00 08/22/21 20:50 Pantoprazole 20 Mg Tab PO 20 mg BID ALMA Administration Sertraline HCl 50 mg 08/23/21 10:00 Sertraline 50 Mg Tab PO QDAY ALMA Sodium Bicarbonate 650 mg 08/22/21 14:00 08/22/21 22:12 Sodium Bicarbonate 650 Mg Tab PO 650 mg QID ALMA Administration Sodium Chloride 10 ml 08/22/21 22:00 08/22/21 22:12 Sodium Chloride 0.9% 10 Ml Flush Syringe IV 10 ml BID ALMA Administration Sodium Chloride 10 ml 08/22/21 12:15 Sodium Chloride 0.9% 10 Ml Flush Syringe IV PRN PRN LINE FLUSH
[2021-08-23] MEDS: PANTOPRAZOLE 20 MG TAB PO SCH ×2 (10:20→22:06)
[2021-08-23] MEDS: SERTRALINE 50 MG TAB PO SCH (10:20)
[2021-08-23] MEDS: CALCIUM ACETATE 667 MG CAP PO SCH ×3 (10:20→16:00)
[2021-08-23] MEDS: allopurinoL 100 MG TAB PO SCH (10:20)
[2021-08-23] MEDS: SODIUM BICARBONATE 650 MG TAB PO SCH ×3 (10:20→22:06)
--- NOTE | 2021-08-23 13:29 | Consultation ---
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 Patient reports "I was sent here". Patient has diminished cognition and provides minimal history. Patient history taken from EMS staff, as well as the dialysis center staff. As per staff the patient was found to be hypotensive during dialysis. Patient recommended to seek further care. Patient transported to [facility] via private vehicle for further care and evaluation of the aforementioned symptoms. The patient was seen and evaluated in the emergency department. All lab and imaging studies reviewed. Patient found to have end-stage renal disease with concomitant hypotension with a blood pressure of 88/31. The patient was placed in observation status and admitted to the medical floor. Nephrology team consulted in ED. Patient denies fever, chills, chest pain, palpitations, productive cough, recent ill contacts, or known exposure to COVID-19. Prior admission on 03/15/2019 reviewed. All medication listed at time of admission has been reconciled. Advanced care planning conducted in ED. Past History Past Medical History: diabetes, ESRD, GERD, stroke, other (See HPI) Past Surgical History: Other (Dialysis access) Social history: single. denies: smoking, alcohol abuse, prescription drug abuse Family history: diabetes, hypertension Review of Systems ROS unobtainable: due to mental status Past History Past Medical History: diabetes, ESRD, GERD, stroke, other (See HPI) Past Surgical History: Other (Dialysis access) Social history: single. denies: smoking, alcohol abuse, prescription drug abuse Family history: diabetes, hypertension Medications and Allergies Allergies Allergy/AdvReac Type Severity Reaction Status Date / Time No Known Allergies Allergy Verified 03/17/19 12:18 Home Medications Medication Instructions Recorded Confirmed Last Taken Type Calcium Acetate [Phoslo] 667 mg PO TID 03/15/19 08/22/21 Unknown History Insulin Detemir [Levemir VIAL] 5 units SUB-Q QAM 03/15/19 08/22/21 Unknown History Omeprazole 20 mg PO BID 03/15/19 08/22/21 Unknown History Sertraline [Zoloft] 50 mg PO QDAY 03/15/19 08/22/21 Unknown History Sodium Bicarbonate 650 mg PO QID 03/15/19 08/22/21 Unknown History allopurinoL [Zyloprim] 100 mg PO QDAY 03/15/19 08/22/21 Unknown History megestroL [Megestrol] 10 ml PO QDAY 03/15/19 08/22/21 Unknown History Active Meds: Active Medications Acetaminophen (Acetaminophen 325 Mg Tab) 650 mg PO Q4H PRN PRN Reason: Pain MILD(1-3)/Fever >100.5/NATHAN Albuterol (Albuterol 2.5 Mg/3 Ml Nebu) 2.5 mg IH Q4HRT PRN PRN Reason: Shortness Of Breath Allopurinol (Allopurinol 100 Mg Tab) 100 mg PO QDAY [facility] Last Admin: 08/23/21 10:20 Dose: 100 mg Documented by: Calcium Acetate (Calcium Acetate 667 Mg Cap) 667 mg PO TIDWM [facility] Last Admin: 08/23/21 10:20 Dose: 667 mg Documented by: Hydromorphone HCl (Hydromorphone 1 Mg/1 Ml Inj) 0.5 mg IV Q23H PRN PRN Reason: Pain , Severe (7-10) Ondansetron HCl (Ondansetron 4 Mg/2 Ml Inj) 4 mg IV Q8H PRN PRN Reason: Nausea And Vomiting Oxycodone/Acetaminophen (Oxycodone /Acetaminophen 5-325mg Tab) 1 tab PO Q16H PRN PRN Reason: Pain, Moderate (4-6) Pantoprazole Sodium (Pantoprazole 20 Mg Tab) 20 mg PO BID [facility] Last Admin: 08/23/21 10:20 Dose: 20 mg Documented by: Sertraline HCl (Sertraline 50 Mg Tab) 50 mg PO QDAY [facility] Last Admin: 08/23/21 10:20 Dose: 50 mg Documented by: Sodium Bicarbonate (Sodium Bicarbonate 650 Mg Tab) 650 mg PO QID [facility] Last Admin: 08/23/21 10:20 Dose: 650 mg Documented by: Sodium Chloride (Sodium Chloride 0.9% 10 Ml Flush Syringe) 10 ml IV BID [facility] Last Admin: 08/23/21 10:20 Dose: 10 ml Documented by: Sodium Chloride (Sodium Chloride 0.9% 10 Ml Flush Syringe) 10 ml IV PRN PRN PRN Reason: LINE FLUSH Exam - Vital Signs Vital signs: Vital Signs Temp Pulse Resp BP Pulse Ox 98.5 F 83 16 82/26 94 08/22/21 09:19 08/22/21 09:19 08/22/21 09:19 08/22/21 09:19 08/22/21 09:19 - Physical Exam Narrative exam: General appearance: Present: mild distress - EENT Eyes: Present: PERRL ENT: clear oral mucosa, hearing decreased - Neck Neck: Present: supple, normal ROM - Respiratory Respiratory effort: normal Respiratory: bilateral: CTA - Cardiovascular Heart Sounds: Present: S1 & S2. Absent: rub, click - Extremities Extremities: pulses symmetrical, No edema Peripheral Pulses: within normal limits - Abdominal General gastrointestinal: Present: soft, non-tender, non-distended, normal bowel sounds Male genitourinary: Present: normal - Integumentary Integumentary: Present: clear, erythema - Musculoskeletal Musculoskeletal: generalized weakness - Psychiatric Psychiatric: no appropriate mood/affect, no intact judgment & insight - Neurologic Neurologic: CNII-XII intact, focal deficits, moves all extremities, gait normal Results - Lab Results 08/22/21 10:47 08/23/21 08:03 Most recent lab results Calcium 8.6 mg/dL (8.4-10.2) 08/23/21 08:03 Assessment and Plan Impression: * ESRD * hyperkalemia * malfunctioning av access * HTN * anemia in esrd Plan: * has not had hd in one week due to malfunctioning av access * treat k medically * consult IR for tunelled catheter placement vs av access repair * hd after access issue addressed * follow up daily lytes * renal diet * strict i/os
[2021-08-23] MEDS ORDERED: SODIUM CHLORIDE 0.9% 100 ML IV PRN (13:31)
[2021-08-23] MEDS ORDERED: EPOETIN ALFA-EPBX 10,000 UNIT/1 ML VIAL IV PRN (13:31)
[2021-08-23] MEDS ORDERED: SODIUM POLYSTYRENE 15 GM/60 ML ORAL LIQD PO NR (14:15)
--- NOTE | 2021-08-23 15:43 | Consultation ---
History of Present Illness - Reason for Consult Consult date: 08/23/21 Malfunctioning AV access - History of Present Illness Patient with history of end-stage renal disease on hemodialysis through a left upper arm AV fistula. During patient's last dialysis session, the patient had to be taken off dialysis secondary to hypotension per report. The patient speaks only [place]. On examination patient has a left upper arm AV fistula with a palpable thrill throughout the fistula. Past History Past Medical History: diabetes, ESRD, GERD, stroke, other (See HPI) Past Surgical History: Other (Dialysis access) Social history: single. denies: smoking, alcohol abuse, prescription drug abuse Family history: diabetes, hypertension Medications and Allergies Allergies Allergy/AdvReac Type Severity Reaction Status Date / Time No Known Allergies Allergy Verified 03/17/19 12:18 Home Medications Medication Instructions Recorded Confirmed Last Taken Type Calcium Acetate [Phoslo] 667 mg PO TID 03/15/19 08/22/21 Unknown History Insulin Detemir [Levemir VIAL] 5 units SUB-Q QAM 03/15/19 08/22/21 Unknown History Omeprazole 20 mg PO BID 03/15/19 08/22/21 Unknown History Sertraline [Zoloft] 50 mg PO QDAY 03/15/19 08/22/21 Unknown History Sodium Bicarbonate 650 mg PO QID 03/15/19 08/22/21 Unknown History allopurinoL [Zyloprim] 100 mg PO QDAY 03/15/19 08/22/21 Unknown History megestroL [Megestrol] 10 ml PO QDAY 03/15/19 08/22/21 Unknown History Active Meds: Active Medications Acetaminophen (Acetaminophen 325 Mg Tab) 650 mg PO Q4H PRN PRN Reason: Pain MILD(1-3)/Fever >100.5/NATHAN Albuterol (Albuterol 2.5 Mg/3 Ml Nebu) 2.5 mg IH Q4HRT PRN PRN Reason: Shortness Of Breath Allopurinol (Allopurinol 100 Mg Tab) 100 mg PO QDAY [facility] Last Admin: 08/23/21 10:20 Dose: 100 mg Documented by: Calcium Acetate (Calcium Acetate 667 Mg Cap) 667 mg PO TIDWM [facility] Last Admin: 08/23/21 13:34 Dose: Not Given Documented by: Hydromorphone HCl (Hydromorphone 1 Mg/1 Ml Inj) 0.5 mg IV Q23H PRN PRN Reason: Pain , Severe (7-10) Sodium Chloride (Nacl 0.9%) 100 mls @ 999 mls/hr IV HERNANDEZ PRN PRN Reason: Hypotension Ondansetron HCl (Ondansetron 4 Mg/2 Ml Inj) 4 mg IV Q8H PRN PRN Reason: Nausea And Vomiting Oxycodone/Acetaminophen (Oxycodone /Acetaminophen 5-325mg Tab) 1 tab PO Q16H PRN PRN Reason: Pain, Moderate (4-6) Pantoprazole Sodium (Pantoprazole 20 Mg Tab) 20 mg PO BID [facility] Last Admin: 08/23/21 10:20 Dose: 20 mg Documented by: Sertraline HCl (Sertraline 50 Mg Tab) 50 mg PO QDAY [facility] Last Admin: 08/23/21 10:20 Dose: 50 mg Documented by: Sodium Bicarbonate (Sodium Bicarbonate 650 Mg Tab) 650 mg PO QID [facility] Last Admin: 08/23/21 14:16 Dose: 650 mg Documented by: Sodium Chloride (Sodium Chloride 0.9% 10 Ml Flush Syringe) 10 ml IV BID [facility] Last Admin: 08/23/21 10:20 Dose: 10 ml Documented by: Sodium Chloride (Sodium Chloride 0.9% 10 Ml Flush Syringe) 10 ml IV PRN PRN PRN Reason: LINE FLUSH Sodium Polystyrene Sulfonate (Sodium Polystyrene 15 Gm/60 Ml Oral Liqd) 30 gm PO ONCE@1415 NR Stop: 08/23/21 19:00 Last Admin: 08/23/21 14:18 Dose: 30 gm Documented by: Review of Systems ROS unobtainable: due to mental status (Language barrier) Exam - Constitutional Vitals: Temp Pulse Resp BP Pulse Ox 98 F 85 20 121/72 98 08/23/21 12:42 08/23/21 12:42 08/23/21 12:42 08/23/21 12:42 08/23/21 13:21 General appearance: Present: no acute distress - EENT Eyes: Present: EOM intact ENT: hearing intact - Neck Neck: Present: supple - Respiratory Respiratory effort: normal - Extremities Extremity abnormal: other (Functioning left upper arm AV fistula) - Abdominal General gastrointestinal: Present: deferred Male genitourinary: Present: deferred - Rectal Rectal Exam: deferred - Psychiatric Psychiatric: cooperative Results - Labs CBC & Chem 7: 08/22/21 10:47 08/23/21 08:03 Labs: Abnormal lab results 08/23/21 Range/Units 08:03 Potassium 5.7 H D (3.6-5.0) mmol/L Carbon Dioxide 20 L (22-30) mmol/L BUN 67 H (9-20) mg/dL Creatinine 23.0 H (0.8-1.3) mg/dL Assessment and Plan Patient with what appears to be a functioning left upper arm AV fistula that was removed from dialysis secondary to hypotension. Dialysis may be initiated using this fistula. Would recommend experienced dialysis nurse access fistula.
--- NOTE | 2021-08-24 08:20 | Progress Note ---
Assessment and Plan Assessment and plan: ESRD. Hypotension Diabetes mellitus type 2. 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 Hyperkalemia History of gout. GERD. 08/23/2021. Hypotension has resolved with systolic blood pressure in the 150s this morning. Consider midodrine if patient has any more episodes. We will continue to monitor today. Anticipate discharge in a.m. if remains stable. Continue Accu-Cheks and SSRI. Continue hemodialysis per nephrology recommendations. 08/24/2021. Dr. Branch reports patient appears to have a functioning AV fistula. Resume hemodialysis per nephrology. Patient with hypotension last evening and this morning. We will initiate midodrine. Follow-up stat BMP. History Interval history: No new issues overnight Hospitalist Physical - Constitutional Vitals: Temp Pulse Resp BP Pulse Ox 98.5 F 85 16 66/32 96 08/24/21 06:00 08/24/21 06:00 08/24/21 06:00 08/24/21 06:00 08/24/21 06:00 General appearance: Present: no acute distress - EENT Eyes: Present: PERRL, EOM intact ENT: hearing intact, clear oral mucosa, dentition normal - Neck Neck: Present: supple, normal ROM - Respiratory Respiratory effort: normal Respiratory: bilateral: CTA - Cardiovascular Rhythm: regular Heart Sounds: Present: S1 & S2. Absent: gallop, rub - Extremities Extremities: no ischemia, No edema, Full ROM - Abdominal General gastrointestinal: soft, non-tender, non-distended, normal bowel sounds - Integumentary Integumentary: Present: clear, warm, dry - Neurologic Neurologic: CNII-XII intact, moves all extremities HEART Score - HEART Score Troponin: Troponin T 0.069 ng/mL (0.00-0.029) H 08/22/21 10:47 Results - Labs CBC & Chem 7: 08/22/21 10:47 08/23/21 08:03 Labs: Laboratory Last Values WBC 4.0 K/mm3 (4.5-11.0) L 08/22/21 10:47 RBC 3.52 M/mm3 (3.65-5.03) L 08/22/21 10:47 Hgb 11.1 gm/dl (11.8-15.2) L 08/22/21 10:47 Hct 33.6 % (35.5-45.6) L 08/22/21 10:47 MCV 95 fl (84-94) H 08/22/21 10:47 MCH 31 pg (28-32) 08/22/21 10:47 MCHC 33 % (32-34) 08/22/21 10:47 RDW 15.8 % (13.2-15.2) H 08/22/21 10:47 Plt Count 118 K/mm3 (140-440) L 08/22/21 10:47 Lymph % (Auto) 11.1 % (13.4-35.0) L 08/22/21 10:47 Bonner % (Auto) 9.6 % (0.0-7.3) H 08/22/21 10:47 Eos % (Auto) 1.3 % (0.0-4.3) 08/22/21 10:47 Baso % (Auto) 0.5 % (0.0-1.8) 08/22/21 10:47 Lymph # (Auto) 0.4 K/mm3 (1.2-5.4) L 08/22/21 10:47 Bonner # (Auto) 0.4 K/mm3 (0.0-0.8) 08/22/21 10:47 Eos # (Auto) 0.1 K/mm3 (0.0-0.4) 08/22/21 10:47 Baso # (Auto) 0.0 K/mm3 (0.0-0.1) 08/22/21 10:47 Seg Neutrophils % 77.5 % (40.0-70.0) H 08/22/21 10:47 Seg Neutrophils # 3.1 K/mm3 (1.8-7.7) 08/22/21 10:47 Sodium 140 mmol/L (137-145) 08/23/21 08:03 Potassium 5.7 mmol/L (3.6-5.0) H D 08/23/21 08:03 Chloride 103.5 mmol/L (98-107) 08/23/21 08:03 Carbon Dioxide 20 mmol/L (22-30) L 08/23/21 08:03 Anion Gap 22 mmol/L 08/23/21 08:03 BUN 67 mg/dL (9-20) H 08/23/21 08:03 Creatinine 23.0 mg/dL (0.8-1.3) H 08/23/21 08:03 Estimated GFR 2 ml/min 08/23/21 08:03 BUN/Creatinine Ratio 3 % 08/23/21 08:03 Glucose 99 mg/dL (75-100) 08/23/21 08:03 Lactic Acid 1.40 mmol/L (0.7-2.0) 08/23/21 00:13 Calcium 8.6 mg/dL (8.4-10.2) 08/23/21 08:03 Total Bilirubin 0.30 mg/dL (0.1-1.2) 08/22/21 10:47 AST 68 units/L (5-40) H 08/22/21 10:47 ALT 62 units/L (7-56) H 08/22/21 10:47 Alkaline Phosphatase 231 units/L (35-129) H 08/22/21 10:47 Troponin T 0.069 ng/mL (0.00-0.029) H 08/22/21 10:47 Total Protein 5.6 g/dL (6.3-8.2) L 08/22/21 10:47 Albumin 3.1 g/dL (3.9-5) L 08/22/21 10:47 Albumin/Globulin Ratio 1.2 % 08/22/21 10:47 Triglycerides 87 mg/dL (2-149) 08/22/21 10:47 Cholesterol 81 mg/dL (50-199) 08/22/21 10:47 LDL Cholesterol Direct 20 mg/dL (50-130) L 08/22/21 10:47 HDL Cholesterol 49 mg/dL (40-59) 08/22/21 10:47 Cholesterol/HDL Ratio 1.65 % 08/22/21 10:47 Microbiology: Microbiology 08/22/21 10:47 Peripheral/Venous Blood Culture - Preliminary NO GROWTH AFTER 24 HOURS 08/22/21 10:47 Peripheral/Venous Blood Culture - Preliminary NO GROWTH AFTER 24 HOURS Reynaga/IV: Voiding Method Bedside Commode Active Medications - Current Medications Current Medications: Generic Name Dose Route Start Last Admin Trade Name Freq PRN Reason Stop Dose Admin Acetaminophen 650 mg 08/22/21 13:00 Acetaminophen 325 Mg Tab PO Q4H PRN Pain MILD(1-3)/Fever >100.5/NATHAN Albuterol 2.5 mg 08/22/21 12:15 Albuterol 2.5 Mg/3 Ml Nebu IH Q4HRT PRN Shortness Of Breath Allopurinol 100 mg 08/23/21 10:00 08/23/21 10:20 Allopurinol 100 Mg Tab PO 100 mg QDAY [facility] Administration Calcium Acetate 667 mg 08/23/21 08:30 08/23/21 16:00 Calcium Acetate 667 Mg Cap PO 667 mg TIDWM [facility] Administration Hydromorphone HCl 0.5 mg 08/22/21 13:00 Hydromorphone 1 Mg/1 Ml Inj IV Q23H PRN Pain , Severe (7-10) Sodium Chloride 100 mls @ 999 mls/hr 08/23/21 13:31 Nacl 0.9% IV HERNANDEZ PRN Hypotension Midodrine 10 mg 08/24/21 08:00 Midodrine 5 Mg Tab PO TID@0800,1200,1600 [facility] Ondansetron HCl 4 mg 08/22/21 12:15 Ondansetron 4 Mg/2 Ml Inj IV Q8H PRN Nausea And Vomiting Oxycodone/Acetaminophen 1 tab 08/22/21 13:00 Oxycodone /Acetaminophen 5-325mg Tab PO Q16H PRN Pain, Moderate (4-6) Pantoprazole Sodium 20 mg 08/22/21 22:00 08/23/21 22:06 Pantoprazole 20 Mg Tab PO 20 mg BID [facility] Administration Sertraline HCl 50 mg 08/23/21 10:00 08/23/21 10:20 Sertraline 50 Mg Tab PO 50 mg QDAY [facility] Administration Sodium Bicarbonate 650 mg 08/22/21 14:00 08/23/21 22:06 Sodium Bicarbonate 650 Mg Tab PO 650 mg QID [facility] Administration Sodium Chloride 10 ml 08/22/21 22:00 08/23/21 22:07 Sodium Chloride 0.9% 10 Ml Flush Syringe IV 10 ml BID [facility] Administration Sodium Chloride 10 ml 08/22/21 12:15 Sodium Chloride 0.9% 10 Ml Flush Syringe IV PRN PRN LINE FLUSH Nutrition/Malnutrition Assess - Dietary Evaluation Nutrition/Malnutrition Findings: Nutrition Notes Start: 08/23/21 13: 57 Freq: Status: Active Protocol: Document 08/23/21 13:57 BRITANY (Rec: 08/23/21 14:59 BRITANY [id number]) Nutrition Notes Need for Assessment generated from: MD Order Initial or Follow up Assessment Other Pertinent Diagnosis Transient hypotension, ESRD- Dialysis, CVA complicated by aphasia. Current Diet Renal Diet Labs/Tests 08/23: K 5.7, CO2 20, BUN 67, Cr 23.0. Pertinent Medications Reviewed. Height 5 ft 1 in Weight 57.15 kg [place] Body Weight (kg) 50.90 BMI 23.8 Intake Prior to Admission Good Weight Status Appropriate Subjective/Other Information Pt needs dialysis 3Xweek, and uses colostomy bag. 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 Is patient on ventilator? No Is Patient Ambulatory and/or Out of Bed Yes REE-([facility]-ambulatory/OOB) [ 1598.844 [id number]] Kcal/Kg value to use for calculation 27 Approximate Energy Requirements Using 1543 kcal/Kg Calculation Used for Recommendations Kcal/kg Additional Notes Protein: 0.8-1.0 g/Kg/day; 41- 51 g/day; 164-204 Kcal/day ( from IBW and Dialysis) Fluids: 1.0 ml/Kcal, or as per MD. Nutrition Intervention Change Diet Order: Continue Renal Diet Add Supplement/Snack (indicate name/kcal 2 X 8 fl oz Nepro with /protein ) Carbsteady Provides kCal: 850 Provides Protein (gm) 38 Goal #1 Maintain [place] energy/ protein balance during LOS Goal #2 Maintain body weight within +/ -3% of actual BW during LOS Goal #3 Achieve and maintain acceptable chemistry lab values during LOS Follow-Up By: 08/30/21 Additional Comments Continue monitoring intake of meals, BM, and tolerance of supplements.
[2021-08-24] MEDS: MIDODRINE 5 MG TAB PO SCH ×3 (08:54→16:36)
[2021-08-24] MEDS: CALCIUM ACETATE 667 MG CAP PO SCH ×3 (08:55→16:37)
[2021-08-24] MEDS: SERTRALINE 50 MG TAB PO SCH (10:14)
[2021-08-24] MEDS: allopurinoL 100 MG TAB PO SCH (10:14)
[2021-08-24] MEDS: SODIUM BICARBONATE 650 MG TAB PO SCH ×5 (10:15→22:03)
[2021-08-24] MEDS: PANTOPRAZOLE 20 MG TAB PO SCH ×2 (10:18→22:03)
[2021-08-24 10:30] LABS: Calcium 8.7 mg/dL (8.4-10.2)
[2021-08-24 11:06] LABS: Hepatitis C Virus Antibody Non-Reactive (NonReactive)
[2021-08-24 11:07] LABS: Hepatitis B Surface Antigen Nonreactive (Negative)
[2021-08-24 13:38] LABS: Basophils % (Auto) 0.8 % (0.0-1.8); Eosinophils # (Auto) 0.2 K/mm3 (0.0-0.4); Eosinophils % (Auto) 3.1 % (0.0-4.3); Hematocrit 34.5 % (35.5-45.6); Hemoglobin 11.6 gm/dl (11.8-15.2); Lymphocytes # (Auto) 0.7 K/mm3 (1.2-5.4); Lymphocytes % (Auto) 12.6 % (13.4-35.0); Mean Corpuscular HGB Conc 34 % (32-34); Mean Corpuscular Volume 95 fl (84-94); Monocytes # (Auto) 0.4 K/mm3 (0.0-0.8); Monocytes % (Auto) 7.5 % (0.0-7.3); Platelet Count 117 K/mm3 (140-440); Red Blood Count 3.62 M/mm3 (3.65-5.03); Red Cell Distribution Width 15.7 % (13.2-15.2)
--- NOTE | 2021-08-24 14:33 | Progress Note ---
Assessment and Plan Impression: * ESRD * hyperkalemia * malfunctioning av access * HTN * anemia in esrd Plan: * has not had hd in one week due to malfunctioning av access * treat k medically * consulted IR for tunelled catheter placement, but felt fistula and no procedure done, with low bps. flow through fistula not adequate for hd, needs catheter or transfer to different facility for adequate dialysis access placement * hd after access issue addressed * keep map >65, transfer to icu for vasopressors if problem persist * midodrine for low bp * gentle ivfs * follow up daily lytes * renal diet * strict i/os Subjective Date of service: 08/24/21 Principal diagnosis: esrd Interval history: labs and chart reviewed events noted Objective - Exam Narrative Exam: General appearance: Present: mild distress - EENT Eyes: Present: PERRL ENT: clear oral mucosa, hearing decreased - Neck Neck: Present: supple, normal ROM - Respiratory Respiratory effort: normal Respiratory: bilateral: CTA - Cardiovascular Heart Sounds: Present: S1 & S2. Absent: rub, click - Extremities Extremities: pulses symmetrical, No edema Peripheral Pulses: within normal limits - Abdominal General gastrointestinal: Present: soft, non-tender, non-distended, normal bowel sounds Male genitourinary: Present: normal - Integumentary Integumentary: Present: clear, erythema - Musculoskeletal Musculoskeletal: generalized weakness - Psychiatric Psychiatric: no appropriate mood/affect, no intact judgment & insight - Neurologic Neurologic: CNII-XII intact, focal deficits, moves all extremities, gait normal - Vital Signs Vital signs: Vital Signs - 12hr 08/24/21 08/24/21 08/24/21 06:00 11:16 12:11 Temperature 98.5 F 97.8 F Pulse Rate 85 80 91 H Respiratory 16 16 Rate Blood Pressure 83/36 Blood Pressure 66/32 78/28 [Left] O2 Sat by Pulse 96 99 Oximetry - Lab 08/24/21 13:16 08/24/21 09:47 Most recent lab results Calcium 8.7 mg/dL (8.4-10.2) 08/24/21 09:47 Medications & Allergies - Medications Allergies/Adverse Reactions: Allergies No Known Allergies Allergy (Verified 03/17/19 12:18) Home Medications: Home Medications Medication Instructions Recorded Confirmed Last Taken Type Calcium Acetate [Phoslo] 667 mg PO TID 03/15/19 08/22/21 Unknown History Insulin Detemir [Levemir VIAL] 5 units SUB-Q QAM 03/15/19 08/22/21 Unknown History Omeprazole 20 mg PO BID 03/15/19 08/22/21 Unknown History Sertraline [Zoloft] 50 mg PO QDAY 03/15/19 08/22/21 Unknown History Sodium Bicarbonate 650 mg PO QID 03/15/19 08/22/21 Unknown History allopurinoL [Zyloprim] 100 mg PO QDAY 03/15/19 08/22/21 Unknown History megestroL [Megestrol] 10 ml PO QDAY 03/15/19 08/22/21 Unknown History Active Medications: Generic Name Dose Route Start Last Admin Trade Name Freq PRN Reason Stop Dose Admin Acetaminophen 650 mg 08/22/21 13:00 Acetaminophen 325 Mg Tab PO Q4H PRN Pain MILD(1-3)/Fever >100.5/NATHAN Albuterol 2.5 mg 08/22/21 12:15 Albuterol 2.5 Mg/3 Ml Nebu IH Q4HRT PRN Shortness Of Breath Allopurinol 100 mg 08/23/21 10:00 08/24/21 10:14 Allopurinol 100 Mg Tab PO 100 mg QDAY [facility] Administration Calcium Acetate 667 mg 08/23/21 08:30 08/24/21 13:24 Calcium Acetate 667 Mg Cap PO 667 mg TIDWM [facility] Administration Hydromorphone HCl 0.5 mg 08/22/21 13:00 Hydromorphone 1 Mg/1 Ml Inj IV Q23H PRN Pain , Severe (7-10) Sodium Chloride 100 mls @ 999 mls/hr 08/23/21 13:31 Nacl 0.9% IV HERNANDEZ PRN Hypotension Sodium Chloride 1,000 mls @ 42 mls/hr 08/24/21 14:30 Nacl 0.9% 1000 Ml IV DIRECT [facility] Midodrine 10 mg 08/24/21 08:00 08/24/21 13:24 Midodrine 5 Mg Tab PO 10 mg TID@0800,1200,1600 [facility] Administration Ondansetron HCl 4 mg 08/22/21 12:15 Ondansetron 4 Mg/2 Ml Inj IV Q8H PRN Nausea And Vomiting Oxycodone/Acetaminophen 1 tab 08/22/21 13:00 Oxycodone /Acetaminophen 5-325mg Tab PO Q16H PRN Pain, Moderate (4-6) Pantoprazole Sodium 20 mg 08/22/21 22:00 08/24/21 10:18 Pantoprazole 20 Mg Tab PO 20 mg BID [facility] Administration Sertraline HCl 50 mg 08/23/21 10:00 08/24/21 10:14 Sertraline 50 Mg Tab PO 50 mg QDAY [facility] Administration Sodium Bicarbonate 650 mg 08/22/21 14:00 08/24/21 13:24 Sodium Bicarbonate 650 Mg Tab PO 650 mg QID [facility] Administration Sodium Chloride 10 ml 08/22/21 22:00 08/24/21 10:15 Sodium Chloride 0.9% 10 Ml Flush Syringe IV 10 ml BID [facility] Administration Sodium Chloride 10 ml 08/22/21 12:15 Sodium Chloride 0.9% 10 Ml Flush Syringe IV PRN PRN LINE FLUSH
[2021-08-24] MEDS ORDERED: SODIUM CHLORIDE 0.9% 1000 ML 1,000 ML IV SCH (15:00)
[2021-08-25 07:59] LABS: Basophils # (Auto) 0.1 K/mm3 (0.0-0.1); Basophils % (Auto) 1.2 % (0.0-1.8); Eosinophils # (Auto) 0.2 K/mm3 (0.0-0.4); Eosinophils % (Auto) 2.8 % (0.0-4.3); Hematocrit 33.3 % (35.5-45.6); Hemoglobin 11.5 gm/dl (11.8-15.2); Lymphocytes # (Auto) 1.1 K/mm3 (1.2-5.4); Lymphocytes % (Auto) 16.2 % (13.4-35.0); Mean Corpuscular HGB Conc 35 % (32-34); Mean Corpuscular Volume 92 fl (84-94); Monocytes # (Auto) 0.5 K/mm3 (0.0-0.8); Monocytes % (Auto) 7.1 % (0.0-7.3); Platelet Count 133 K/mm3 (140-440); Red Blood Count 3.61 M/mm3 (3.65-5.03); Red Cell Distribution Width 15.3 % (13.2-15.2)
[2021-08-25 08:11] LABS: Calcium 8.9 mg/dL (8.4-10.2)
[2021-08-25] MEDS: CALCIUM ACETATE 667 MG CAP PO SCH ×3 (09:08→19:08)
[2021-08-25] MEDS: MIDODRINE 5 MG TAB PO SCH ×3 (09:08→17:06)
--- NOTE | 2021-08-25 09:08 | Progress Note ---
Assessment and Plan Assessment and plan: ESRD. Hypotension Diabetes mellitus type 2. 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 Hyperkalemia History of gout. GERD. 08/23/2021. Hypotension has resolved with systolic blood pressure in the 150s this morning. Consider midodrine if patient has any more episodes. We will continue to monitor today. Anticipate discharge in a.m. if remains stable. Continue Accu-Cheks and SSRI. Continue hemodialysis per nephrology recommendations. 08/24/2021. Dr. Branch reports patient appears to have a functioning AV fistula. Resume hemodialysis per nephrology. Patient with hypotension last evening and this morning. We will initiate midodrine. Follow-up stat BMP. 08/25/2021. Tunneled catheter placement per nephrology and vascular surgery. Continue midodrine for hypotension. Continue IV fluids per nephrology recommendations. We will give 60 of Kayexalate for hyperkalemia with potassium of 6.0. Consider insulin and glucose. History Interval history: No new issues overnight Hospitalist Physical - Constitutional Vitals: Temp Pulse Resp BP Pulse Ox 97.7 F 64 18 86/40 100 08/25/21 04:50 08/25/21 04:50 08/25/21 04:50 08/25/21 04:50 08/25/21 04:50 General appearance: Present: no acute distress - EENT Eyes: Present: PERRL, EOM intact ENT: hearing intact, clear oral mucosa, dentition normal - Neck Neck: Present: supple, normal ROM - Respiratory Respiratory effort: normal Respiratory: bilateral: CTA - Cardiovascular Rhythm: regular Heart Sounds: Present: S1 & S2. Absent: gallop, rub - Extremities Extremities: no ischemia, No edema, Full ROM - Abdominal General gastrointestinal: soft, non-tender, non-distended, normal bowel sounds - Integumentary Integumentary: Present: clear, warm, dry - Neurologic Neurologic: CNII-XII intact, moves all extremities HEART Score - HEART Score Troponin: Troponin T 0.069 ng/mL (0.00-0.029) H 08/22/21 10:47 Results - Labs CBC & Chem 7: 08/25/21 07:08 08/25/21 07:08 Labs: Laboratory Last Values WBC 6.9 K/mm3 (4.5-11.0) 08/25/21 07:08 RBC 3.61 M/mm3 (3.65-5.03) L 08/25/21 07:08 Hgb 11.5 gm/dl (11.8-15.2) L 08/25/21 07:08 Hct 33.3 % (35.5-45.6) L 08/25/21 07:08 MCV 92 fl (84-94) 08/25/21 07:08 MCH 32 pg (28-32) 08/25/21 07:08 MCHC 35 % (32-34) H 08/25/21 07:08 RDW 15.3 % (13.2-15.2) H 08/25/21 07:08 Plt Count 133 K/mm3 (140-440) L 08/25/21 07:08 Lymph % (Auto) 16.2 % (13.4-35.0) 08/25/21 07:08 [place] % (Auto) 7.1 % (0.0-7.3) 08/25/21 07:08 Eos % (Auto) 2.8 % (0.0-4.3) 08/25/21 07:08 Baso % (Auto) 1.2 % (0.0-1.8) 08/25/21 07:08 Lymph # (Auto) 1.1 K/mm3 (1.2-5.4) L 08/25/21 07:08 [place] # (Auto) 0.5 K/mm3 (0.0-0.8) 08/25/21 07:08 Eos # (Auto) 0.2 K/mm3 (0.0-0.4) 08/25/21 07:08 Baso # (Auto) 0.1 K/mm3 (0.0-0.1) 08/25/21 07:08 Seg Neutrophils % 72.7 % (40.0-70.0) H 08/25/21 07:08 Seg Neutrophils # 5.0 K/mm3 (1.8-7.7) 08/25/21 07:08 Sodium 134 mmol/L (137-145) L 08/25/21 07:08 Potassium 6.0 mmol/L (3.6-5.0) H 08/25/21 07:08 Chloride 94.6 mmol/L (98-107) L 08/25/21 07:08 Carbon Dioxide 16 mmol/L (22-30) L 08/25/21 07:08 Anion Gap 29 mmol/L 08/25/21 07:08 BUN 76 mg/dL (9-20) H 08/25/21 07:08 Creatinine 29.8 mg/dL (0.8-1.3) H 08/25/21 07:08 Estimated GFR 2 ml/min 08/25/21 07:08 BUN/Creatinine Ratio 3 % 08/25/21 07:08 Glucose 95 mg/dL (75-100) 08/25/21 07:08 Lactic Acid 1.40 mmol/L (0.7-2.0) 08/23/21 00:13 Calcium 8.9 mg/dL (8.4-10.2) 08/25/21 07:08 Total Bilirubin 0.30 mg/dL (0.1-1.2) 08/22/21 10:47 AST 68 units/L (5-40) H 08/22/21 10:47 ALT 62 units/L (7-56) H 08/22/21 10:47 Alkaline Phosphatase 231 units/L (35-129) H 08/22/21 10:47 Troponin T 0.069 ng/mL (0.00-0.029) H 08/22/21 10:47 Total Protein 5.6 g/dL (6.3-8.2) L 08/22/21 10:47 Albumin 3.1 g/dL (3.9-5) L 08/22/21 10:47 Albumin/Globulin Ratio 1.2 % 08/22/21 10:47 Triglycerides 87 mg/dL (2-149) 08/22/21 10:47 Cholesterol 81 mg/dL (50-199) 08/22/21 10:47 LDL Cholesterol Direct 20 mg/dL (50-130) L 08/22/21 10:47 HDL Cholesterol 49 mg/dL (40-59) 08/22/21 10:47 Cholesterol/HDL Ratio 1.65 % 08/22/21 10:47 Hepatitis A IgM Ab Non-reactive (NonReactive) 08/24/21 07:17 Hep Bs Antigen Nonreactive (Negative) 08/24/21 07:17 Hep B Core IgM Ab Non-reactive (NonReactive) 08/24/21 07:17 Hepatitis C Antibody Non-reactive (NonReactive) 08/24/21 07:17 Microbiology: Microbiology 08/22/21 10:47 Peripheral/Venous Blood Culture - Preliminary NO GROWTH AFTER 48 HOURS 08/22/21 10:47 Peripheral/Venous Blood Culture - Preliminary NO GROWTH AFTER 48 HOURS Reyn[place]/IV: Voiding Method Condom Catheter Active Medications - Current Medications Current Medications: Generic Name Dose Route Start Last Admin Trade Name Freq PRN Reason Stop Dose Admin Acetaminophen 650 mg 08/22/21 13:00 Acetaminophen 325 Mg Tab PO Q4H PRN Pain MILD(1-3)/Fever >100.5/NATHAN Albuterol 2.5 mg 08/22/21 12:15 Albuterol 2.5 Mg/3 Ml Nebu IH Q4HRT PRN Shortness Of Breath Allopurinol 100 mg 08/23/21 10:00 08/24/21 10:14 Allopurinol 100 Mg Tab PO 100 mg QDAY ALMA Administration Calcium Acetate 667 mg 08/23/21 08:30 08/24/21 16:37 Calcium Acetate 667 Mg Cap PO 667 mg TIDWM ALMA Administration Hydromorphone HCl 0.5 mg 08/22/21 13:00 Hydromorphone 1 Mg/1 Ml Inj IV Q23H PRN Pain , Severe (7-10) Sodium Chloride 100 mls @ 999 mls/hr 08/23/21 13:31 Nacl 0.9% IV HERNANDEZ PRN Hypotension Sodium Chloride 1,000 mls @ 42 mls/hr 08/24/21 15:00 08/24/21 16:36 Nacl 0.9% 1000 Ml IV 42 mls/hr DIRECT ALMA Administration Midodrine 10 mg 08/24/21 08:00 08/24/21 16:36 Midodrine 5 Mg Tab PO 10 mg TID@0800,1200,1600 ALMA Administration Ondansetron HCl 4 mg 08/22/21 12:15 Ondansetron 4 Mg/2 Ml Inj IV Q8H PRN Nausea And Vomiting Oxycodone/Acetaminophen 1 tab 08/22/21 13:00 Oxycodone /Acetaminophen 5-325mg Tab PO Q16H PRN Pain, Moderate (4-6) Pantoprazole Sodium 20 mg 08/22/21 22:00 08/24/21 22:03 Pantoprazole 20 Mg Tab PO 20 mg BID ALMA Administration Sertraline HCl 50 mg 08/23/21 10:00 08/24/21 10:14 Sertraline 50 Mg Tab PO 50 mg QDAY ALMA Administration Sodium Bicarbonate 650 mg 08/22/21 14:00 08/24/21 22:03 Sodium Bicarbonate 650 Mg Tab PO 650 mg QID ALMA Administration Sodium Chloride 10 ml 08/22/21 22:00 08/24/21 22:04 Sodium Chloride 0.9% 10 Ml Flush Syringe IV 10 ml BID ALMA Administration Sodium Chloride 10 ml 08/22/21 12:15 Sodium Chloride 0.9% 10 Ml Flush Syringe IV PRN PRN LINE FLUSH Nutrition/Malnutrition Assess - Dietary Evaluation Nutrition/Malnutrition Findings: Nutrition Notes Start: 08/23/21 13:57 Freq: Status: Active Protocol: Document 08/23/21 13:57 BRITANY (Rec: 08/23/21 14:59 BRITANY [id number]) Nutrition Notes Need for Assessment generated from: MD Order Initial or Follow up Assessment Other Pertinent Diagnosis Transient hypotension, ESRD- Dialysis, 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 Current Diet Renal Diet Labs/Tests 08/23: K 5.7, CO2 20, BUN 67, Cr 23.0. Pertinent Medications Reviewed. Height 5 ft 1 in Weight 57.15 kg [place] Body Weight (kg) 50.90 BMI 23.8 Intake Prior to Admission Good Weight Status Appropriate Subjective/Other Information Pt needs dialysis 3Xweek, and uses colostomy bag. 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 Is patient on ventilator? No Is Patient Ambulatory and/or Out of Bed Yes REE-(Ault-St. or-ambulatory/OOB) [ 0158.844 [id number]] Kcal/Kg value to use for calculation 27 Approximate Energy Requirements Using 1543 kcal/Kg Calculation Used for Recommendations Kcal/kg Additional Notes Protein: 0.8-1.0 g/Kg/day; 41- 51 g/day; 164-204 Kcal/day ( from IBW and Dialysis) Fluids: 1.0 ml/Kcal, or as per MD. Nutrition Intervention Change Diet Order: Continue Renal Diet Add Supplement/Snack (indicate name/kcal 2 X 8 fl oz Nepro with /protein ) Carbsteady Provides kCal: 850 Provides Protein (gm) 38 Goal #1 Maintain [place] energy/ protein balance during LOS Goal #2 Maintain body weight within +/ -3% of actual BW during LOS Goal #3 Achieve and maintain acceptable chemistry lab values during LOS Follow-Up By: 08/30/21 Additional Comments Continue monitoring intake of meals, BM, and tolerance of supplements.
[2021-08-25] MEDS ORDERED: SODIUM POLYSTYRENE 15 GM/60 ML ORAL LIQD PO NR (10:00)
[2021-08-25] MEDS ORDERED: SODIUM CHLORIDE 0.9% 100 ML IV PRN (10:21)
--- NOTE | 2021-08-25 10:25 | Progress Note ---
Assessment and Plan Impression: * ESRD * hyperkalemia * hypotension * malfunctioning av access * HTN * anemia in esrd Plan: * has not had hd in one week due to malfunctioning av access with hypotension * stat hd today * treat k medically * consulted IR for tunelled catheter placement, but felt fistula and no procedure done, with low bps. flow through fistula not adequate for hd, needs catheter or transfer to different facility for adequate dialysis access placement * hd after access issue addressed * keep map >65, transfer to icu for vasopressors if problem persist * midodrine for low bp * gentle ivfs, add bicarb gtt * follow up daily lytes * renal diet * strict i/os Subjective Date of service: 08/25/21 Principal diagnosis: esrd Interval history: labs and chart reviewed events noted Objective - Exam Narrative Exam: General appearance: Present: mild distress - EENT Eyes: Present: PERRL ENT: clear oral mucosa, hearing decreased - Neck Neck: Present: supple, normal ROM - Respiratory Respiratory effort: normal Respiratory: bilateral: CTA - Cardiovascular Heart Sounds: Present: S1 & S2. Absent: rub, click - Extremities Extremities: pulses symmetrical, No edema Peripheral Pulses: within normal limits - Abdominal General gastrointestinal: Present: soft, non-tender, non-distended, normal bowel sounds Male genitourinary: Present: normal - Integumentary Integumentary: Present: clear, erythema - Musculoskeletal Musculoskeletal: generalized weakness - Psychiatric Psychiatric: no appropriate mood/affect, no intact judgment & insight - Neurologic Neurologic: CNII-XII intact, focal deficits, moves all extremities, gait normal - Vital Signs Vital signs: Vital Signs - 12hr 08/25/21 04:50 Temperature 97.7 F Pulse Rate 64 Respiratory 18 Rate Blood Pressure 86/40 O2 Sat by Pulse 100 Oximetry - Lab 08/25/21 07:08 08/25/21 07:08 Most recent lab results Calcium 8.9 mg/dL (8.4-10.2) 08/25/21 07:08 Medications & Allergies - Medications Allergies/Adverse Reactions: Allergies No Known Allergies Allergy (Verified 03/17/19 12:18) Home Medications: Home Medications Medication Instructions Recorded Confirmed Last Taken Type Calcium Acetate [Phoslo] 667 mg PO TID 03/15/19 08/22/21 Unknown History Insulin Detemir [Levemir VIAL] 5 units SUB-Q QAM 03/15/19 08/22/21 Unknown History Omeprazole 20 mg PO BID 03/15/19 08/22/21 Unknown History Sertraline [Zoloft] 50 mg PO QDAY 03/15/19 08/22/21 Unknown History Sodium Bicarbonate 650 mg PO QID 03/15/19 08/22/21 Unknown History allopurinoL [Zyloprim] 100 mg PO QDAY 03/15/19 08/22/21 Unknown History megestroL [Megestrol] 10 ml PO QDAY 03/15/19 08/22/21 Unknown History Active Medications: Generic Name Dose Route Start Last Admin Trade Name Freq PRN Reason Stop Dose Admin Acetaminophen 650 mg 08/22/21 13:00 Acetaminophen 325 Mg Tab PO Q4H PRN Pain MILD(1-3)/Fever >100.5/NATAHN Albuterol 2.5 mg 08/22/21 12:15 Albuterol 2.5 Mg/3 Ml Nebu IH Q4HRT PRN Shortness Of Breath Allopurinol 100 mg 08/23/21 10:00 08/24/21 10:14 Allopurinol 100 Mg Tab PO 100 mg QDAY ALMA Administration Calcium Acetate 667 mg 08/23/21 08:30 08/25/21 09:08 Calcium Acetate 667 Mg Cap PO 667 mg TIDWM ALMA Administration Hydromorphone HCl 0.5 mg 08/22/21 13:00 Hydromorphone 1 Mg/1 Ml Inj IV Q23H PRN Pain , Severe (7-10) Sodium Chloride 100 mls @ 999 mls/hr 08/23/21 13:31 Nacl 0.9% IV HERNANDEZ PRN Hypotension Sodium Chloride 1,000 mls @ 42 mls/hr 08/24/21 15:00 08/24/21 16:36 Nacl 0.9% 1000 Ml IV 42 mls/hr DIRECT ALMA Administration Midodrine 10 mg 08/24/21 08:00 08/25/21 09:08 Midodrine 5 Mg Tab PO 10 mg TID@0800,1200,1600 ALMA Administration Ondansetron HCl 4 mg 08/22/21 12:15 Ondansetron 4 Mg/2 Ml Inj IV Q8H PRN Nausea And Vomiting Oxycodone/Acetaminophen 1 tab 08/22/21 13:00 Oxycodone /Acetaminophen 5-325mg Tab PO Q16H PRN Pain, Moderate (4-6) Pantoprazole Sodium 20 mg 08/22/21 22:00 08/24/21 22:03 Pantoprazole 20 Mg Tab PO 20 mg BID ALMA Administration Sertraline HCl 50 mg 08/23/21 10:00 08/24/21 10:14 Sertraline 50 Mg Tab PO 50 mg QDAY ALMA Administration Sodium Bicarbonate 650 mg 08/22/21 14:00 08/24/21 22:03 Sodium Bicarbonate 650 Mg Tab PO 650 mg QID ALMA Administration Sodium Chloride 10 ml 08/22/21 22:00 08/24/21 22:04 Sodium Chloride 0.9% 10 Ml Flush Syringe IV 10 ml BID ALMA Administration Sodium Chloride 10 ml 08/22/21 12:15 Sodium Chloride 0.9% 10 Ml Flush Syringe IV PRN PRN LINE FLUSH Sodium Polystyrene Sulfonate 60 gm 08/25/21 10:00 Sodium Polystyrene 15 Gm/60 Ml Oral Liqd PO 08/25/21 14:00 ONCE@1000 NR
[2021-08-25] MEDS ORDERED: SODIUM BICARBONATE 150 MEQ in DEXTROSE 5% IN WATER 1,000 ML IV SCH (12:00)
[2021-08-25] MEDS: PANTOPRAZOLE 20 MG TAB PO SCH ×2 (12:02→22:26)
[2021-08-25] MEDS: SODIUM BICARBONATE 650 MG TAB PO SCH ×4 (12:02→22:26)
[2021-08-25] MEDS: SERTRALINE 50 MG TAB PO SCH (12:02)
[2021-08-25] MEDS: allopurinoL 100 MG TAB PO SCH (12:02)
[2021-08-25] MEDS ORDERED: HEPARIN/NS 5000 UNIT/500ML 500 ML IR ONE (12:09)
[2021-08-25] MEDS ORDERED: HEPARIN 10,000 UNITS/10 ML VIAL ONE (12:09)
[2021-08-25] MEDS ORDERED: MIDAZOLAM 2 MG/2 ML INJ ONE (12:09)
[2021-08-25] MEDS ORDERED: fentaNYL 100 MCG/2 ML INJ ONE (12:10)
[2021-08-25] MEDS ORDERED: SODIUM CHLORIDE 0.9% 250ML 250 ML ONE (12:10)
[2021-08-25] MEDS: LIDOCAINE (2%) 20 MG/1 ML VIAL 20 ML MDV INFILTRATI ONE ×2 (12:29→12:34)
--- NOTE | 2021-08-25 12:40 | Operative Report ---
Operative Report Operative Report: Exam ultrasound and fluoroscopic guided placement of Vas-Cath Clinical indication: Unable to use patient's functioning left upper arm AV fistula Date: 08/25/2021 Procedure: Following an explanation of the risk, benefits and alternatives using the patient's son as a facility maintenance helper, written informed consent was obtained. The patient was brought to the angiographic suite and placed in supine position on the examination table. The patient has a right EJ IV. He has a right lower abdomen colostomy. Decision was made to choose the left groin for access. Initial ultrasound evaluation of the patient's left groin demonstrated a patent left common femoral vein. The patient's groin was prepped and draped in the usual sterile fashion. 1% lidocaine was used for anesthesia. Under ultrasound guidance, the left common femoral vein was cannulated with a 7 cm 18-gauge needle. A 0.035 guidewire was advanced centrally. The guidewire was advanced into the SVC to document intravenous positioning. The needle was removed and following serial dilation over the guidewire, a 30 cm tri-Allises catheter was advanced over the guidewire centrally. The tip of the catheter is in the possible IVC. The guidewire was removed. Nonpulsatile blood return from all 3 ports. The ports flushed and aspirated easily and were then locked with appropriate volumes of heparin. The catheter was securely fastened to the skin surface using 2-0 Ethilon suture and sterile dressing applied. The patient tolerated the procedure well. There were no immediate postprocedure complications. Sedation was not utilized secondary to patient's n.p.o. status. Lidocaine was used for local anesthetic. Continuous cardiopulmonary monitoring is utilized. Impression: Ultrasound and fluoroscopic guided placement of 30 cm dialysis Vas- Cath via the left common femoral vein.
[2021-08-26 00:27] LABS: Calcium 8.4 mg/dL (8.4-10.2)
[2021-08-26 06:15] LABS: Basophils % (Auto) 0.8 % (0.0-1.8); Eosinophils # (Auto) 0.1 K/mm3 (0.0-0.4); Eosinophils % (Auto) 2.6 % (0.0-4.3); Hematocrit 31.6 % (35.5-45.6); Hemoglobin 10.6 gm/dl (11.8-15.2); Lymphocytes # (Auto) 0.8 K/mm3 (1.2-5.4); Lymphocytes % (Auto) 17.3 % (13.4-35.0); Mean Corpuscular HGB Conc 34 % (32-34); Mean Corpuscular Volume 94 fl (84-94); Monocytes # (Auto) 0.4 K/mm3 (0.0-0.8); Monocytes % (Auto) 9.6 % (0.0-7.3); Red Blood Count 3.35 M/mm3 (3.65-5.03); Red Cell Distribution Width 15.2 % (13.2-15.2)
[2021-08-26 06:20] LABS: Platelet Count 87 K/mm3 (140-440)
[2021-08-26 07:07] LABS: Calcium 8.2 mg/dL (8.4-10.2)
--- NOTE | 2021-08-26 08:28 | Progress Note ---
Assessment and Plan Assessment and plan: ESRD. Hypotension Diabetes mellitus type 2. 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 Hyperkalemia History of gout. GERD. 08/23/2021. Hypotension has resolved with systolic blood pressure in the 150s this morning. Consider midodrine if patient has any more episodes. We will continue to monitor today. Anticipate discharge in a.m. if remains stable. Continue Accu-Cheks and SSRI. Continue hemodialysis per nephrology recommendations. 08/24/2021. Dr. Branch reports patient appears to have a functioning AV fistula. Resume hemodialysis per nephrology. Patient with hypotension last evening and this morning. We will initiate midodrine. Follow-up stat BMP. 08/25/2021. Tunneled catheter placement per nephrology and vascular surgery. Continue midodrine for hypotension. Continue IV fluids per nephrology recommendations. We will give 60 of Kayexalate for hyperkalemia with potassium of 6.0. Consider insulin and glucose. 08/26/2021. Vas-Cath placed by IR yesterday. Hemodialysis per nephrology. Continue midodrine for hypotension. Hyperkalemia resolved. Check echocardiogram to assess systolic function. Also check TSH and random cortisol levels. History Interval history: No new issues overnight Hospitalist Physical - Constitutional Vitals: Temp Pulse Resp BP Pulse Ox 97.8 F 73 18 96/23 95 08/26/21 04:28 08/26/21 04:28 08/26/21 04:28 08/26/21 04:28 08/26/21 04:28 General appearance: Present: no acute distress - EENT Eyes: Present: PERRL, EOM intact ENT: hearing intact, clear oral mucosa, dentition normal - Neck Neck: Present: supple, normal ROM - Respiratory Respiratory effort: normal Respiratory: bilateral: CTA - Cardiovascular Rhythm: regular Heart Sounds: Present: S1 & S2. Absent: gallop, rub - Extremities Extremities: no ischemia, No edema, Full ROM - Abdominal General gastrointestinal: soft, non-tender, non-distended, normal bowel sounds - Integumentary Integumentary: Present: clear, warm, dry - Neurologic Neurologic: CNII-XII intact, moves all extremities HEART Score - HEART Score Troponin: Troponin T 0.069 ng/mL (0.00-0.029) H 08/22/21 10:47 Results - Labs CBC & Chem 7: 08/26/21 05:57 08/26/21 05:57 Labs: Laboratory Last Values WBC 4.5 K/mm3 (4.5-11.0) 08/26/21 05:57 RBC 3.35 M/mm3 (3.65-5.03) L 08/26/21 05:57 Hgb 10.6 gm/dl (11.8-15.2) L 08/26/21 05:57 Hct 31.6 % (35.5-45.6) L 08/26/21 05:57 MCV 94 fl (84-94) 08/26/21 05:57 MCH 32 pg (28-32) 08/26/21 05:57 MCHC 34 % (32-34) 08/26/21 05:57 RDW 15.2 % (13.2-15.2) 08/26/21 05:57 Plt Count 87 K/mm3 (140-440) L 08/26/21 05:57 Lymph % (Auto) 17.3 % (13.4-35.0) 08/26/21 05:57 [place] % (Auto) 9.6 % (0.0-7.3) H 08/26/21 05:57 Eos % (Auto) 2.6 % (0.0-4.3) 08/26/21 05:57 Baso % (Auto) 0.8 % (0.0-1.8) 08/26/21 05:57 Lymph # (Auto) 0.8 K/mm3 (1.2-5.4) L 08/26/21 05:57 [place] # (Auto) 0.4 K/mm3 (0.0-0.8) 08/26/21 05:57 Eos # (Auto) 0.1 K/mm3 (0.0-0.4) 08/26/21 05:57 Baso # (Auto) 0.0 K/mm3 (0.0-0.1) 08/26/21 05:57 Seg Neutrophils % 69.7 % (40.0-70.0) 08/26/21 05:57 Seg Neutrophils # 3.1 K/mm3 (1.8-7.7) 08/26/21 05:57 Sodium 138 mmol/L (137-145) 08/26/21 05:57 Potassium 4.9 mmol/L (3.6-5.0) 08/26/21 05:57 Chloride 96.1 mmol/L (98-107) L 08/26/21 05:57 Carbon Dioxide 25 mmol/L (22-30) 08/26/21 05:57 Anion Gap 22 mmol/L 08/26/21 05:57 BUN 39 mg/dL (9-20) H 08/26/21 05:57 Creatinine 17.0 mg/dL (0.8-1.3) H 08/26/21 05:57 Estimated GFR 3 ml/min 08/26/21 05:57 BUN/Creatinine Ratio 2 % 08/26/21 05:57 Glucose 94 mg/dL (75-100) 08/26/21 05:57 Lactic Acid 1.40 mmol/L (0.7-2.0) 08/23/21 00:13 Calcium 8.2 mg/dL (8.4-10.2) L 08/26/21 05:57 Total Bilirubin 0.30 mg/dL (0.1-1.2) 08/22/21 10:47 AST 68 units/L (5-40) H 08/22/21 10:47 ALT 62 units/L (7-56) H 08/22/21 10:47 Alkaline Phosphatase 231 units/L (35-129) H 08/22/21 10:47 Troponin T 0.069 ng/mL (0.00-0.029) H 08/22/21 10:47 Total Protein 5.6 g/dL (6.3-8.2) L 08/22/21 10:47 Albumin 3.1 g/dL (3.9-5) L 08/22/21 10:47 Albumin/Globulin Ratio 1.2 % 08/22/21 10:47 Triglycerides 87 mg/dL (2-149) 08/22/21 10:47 Cholesterol 81 mg/dL (50-199) 08/22/21 10:47 LDL Cholesterol Direct 20 mg/dL (50-130) L 08/22/21 10:47 HDL Cholesterol 49 mg/dL (40-59) 08/22/21 10:47 Cholesterol/HDL Ratio 1.65 % 08/22/21 10:47 Hepatitis A IgM Ab Non-reactive (NonReactive) 08/24/21 07:17 Hep Bs Antigen Nonreactive (Negative) 08/24/21 07:17 Hep B Core IgM Ab Non-reactive (NonReactive) 08/24/21 07:17 Hepatitis C Antibody Non-reactive (NonReactive) 08/24/21 07:17 Microbiology: Microbiology 08/22/21 10:47 Peripheral/Venous Blood Culture - Preliminary NO GROWTH AFTER 72 HOURS 08/22/21 10:47 Peripheral/Venous Blood Culture - Preliminary NO GROWTH AFTER 72 HOURS [place]/IV: Voiding Method Condom Catheter Active Medications - Current Medications Current Medications: Generic Name Dose Route Start Last Admin Trade Name Freq PRN Reason Stop Dose Admin Acetaminophen 650 mg 08/22/21 13:00 Acetaminophen 325 Mg Tab PO Q4H PRN Pain MILD(1-3)/Fever >100.5/NATHAN Albuterol 2.5 mg 08/22/21 12:15 Albuterol 2.5 Mg/3 Ml Nebu IH Q4HRT PRN Shortness Of Breath Allopurinol 100 mg 08/23/21 10:00 08/25/21 12:02 Allopurinol 100 Mg Tab PO Not Given QDAY ALMA Calcium Acetate 667 mg 08/23/21 08:30 08/25/21 19:08 Calcium Acetate 667 Mg Cap PO Not Given TIDWM ALMA Hydromorphone HCl 0.5 mg 08/22/21 13:00 Hydromorphone 1 Mg/1 Ml Inj IV Q23H PRN Pain , Severe (7-10) Sodium Chloride 100 mls @ 999 mls/hr 08/23/21 13:31 Nacl 0.9% IV HERNANDEZ PRN Hypotension Sodium Chloride 100 mls @ 999 mls/hr 08/25/21 10:21 Nacl 0.9% IV HERNANDEZ PRN Hypotension Sodium Bicarbonate 150 meq/ 1,150 mls @ 50 mls/hr 08/25/21 12:00 08/25/21 16:07 Dextrose IV 50 mls/hr DIRECT ALMA Administration Midodrine 10 mg 08/24/21 08:00 08/25/21 17:06 Midodrine 5 Mg Tab PO 10 mg TID@0800,1200,1600 ALMA Administration Ondansetron HCl 4 mg 08/22/21 12:15 08/25/21 13:06 Ondansetron 4 Mg/2 Ml Inj IV 4 mg Q8H PRN Administration Nausea And Vomiting Oxycodone/Acetaminophen 1 tab 08/22/21 13:00 Oxycodone /Acetaminophen 5-325mg Tab PO Q16H PRN Pain, Moderate (4-6) Pantoprazole Sodium 20 mg 08/22/21 22:00 08/25/21 22:26 Pantoprazole 20 Mg Tab PO 20 mg BID ALMA Administration Sertraline HCl 50 mg 08/23/21 10:00 08/25/21 12:02 Sertraline 50 Mg Tab PO Not Given QDAY ALMA Sodium Bicarbonate 650 mg 08/22/21 14:00 08/25/21 22:26 Sodium Bicarbonate 650 Mg Tab PO 650 mg QID ALMA Administration Sodium Chloride 10 ml 08/22/21 22:00 08/25/21 22:26 Sodium Chloride 0.9% 10 Ml Flush Syringe IV 10 ml BID ALMA Administration Sodium Chloride 10 ml 08/22/21 12:15 Sodium Chloride 0.9% 10 Ml Flush Syringe IV PRN PRN LINE FLUSH Nutrition/Malnutrition Assess - Dietary Evaluation Nutrition/Malnutrition Findings: Nutrition Notes Start: 08/23/21 13:57 Freq: Status: Active Protocol: Document 08/23/21 13:57 BRITANY (Rec: 08/23/21 14:59 BRITANY [email or web address]) Nutrition Notes Need for Assessment generated from: MD Order Initial or Follow up Assessment Other Pertinent Diagnosis Transient hypotension, ESRD- Dialysis, 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 Current Diet Renal Diet Labs/Tests 08/23: K 5.7, CO2 20, BUN 67, Cr 23.0. Pertinent Medications Reviewed. Height 5 ft 1 in Weight 57.15 kg [place] Body Weight (kg) 50.90 BMI 23.8 Intake Prior to Admission Good Weight Status Appropriate Subjective/Other Information Pt needs dialysis 3Xweek, and uses colostomy bag. 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 Is patient on ventilator? No Is Patient Ambulatory and/or Out of Bed Yes REE-([place]-St. Jeor-ambulatory/OOB) [ 1598.844 [id number]] Kcal/Kg value to use for calculation 27 Approximate Energy Requirements Using 1543 kcal/Kg Calculation Used for Recommendations Kcal/kg Additional Notes Protein: 0.8-1.0 g/Kg/day; 41- 51 g/day; 164-204 Kcal/day ( from IBW and Dialysis) Fluids: 1.0 ml/Kcal, or as per MD. Nutrition Intervention Change Diet Order: Continue Renal Diet Add Supplement/Snack (indicate name/kcal 2 X 8 fl oz Nepro with /protein ) Carbsteady Provides kCal: 850 Provides Protein (gm) 38 Goal #1 Maintain [place] energy/ protein balance during LOS Goal #2 Maintain body weight within +/ -3% of actual BW during LOS Goal #3 Achieve and maintain acceptable chemistry lab values during LOS Follow-Up By: 08/30/21 Additional Comments Continue monitoring intake of meals, BM, and tolerance of supplements.
[2021-08-26] MEDS: CALCIUM ACETATE 667 MG CAP PO SCH ×3 (08:36→17:15)
[2021-08-26] MEDS: MIDODRINE 5 MG TAB PO SCH ×3 (08:36→17:15)
--- NOTE | 2021-08-26 09:21 | Progress Note ---
Assessment and Plan Impression: * ESRD * hyperkalemia * hypotension * malfunctioning av access * HTN * anemia in esrd Plan: * prior to hospitalization, no dialysis in one week due to malfunctioning av access with hypotension * Appreciate IR, permacath placed 08/25 for access; s/p STAT HD 08/25 after CVC placement * Continue HD // per outpatient, due tomorrow; no indication for additional HD today per lyte/volume assessment * keep map >65, BPs soft but stable. Transfer to icu for vasopressors if unable to maintain MAP * Continue midodrine for low bp * will stop IVF (NaHCO3 gtt) as acidosis improved s/p HD * daily lytes * renal diet * strict i/os Subjective Date of service: 08/26/21 Principal diagnosis: esrd Interval history: No acute issues noted this AM. Received STAT HD yesterday after CVC placement. No issues noted with treatment Objective - Exam Narrative Exam: General appearance: Present: no distress, non-Austrian speaking - EENT Eyes: Present: PERRL ENT: clear oral mucosa, hearing decreased - Neck Neck: Present: supple, normal ROM - Respiratory Respiratory effort: normal Respiratory: bilateral: CTA - Cardiovascular Heart Sounds: Present: S1 & S2. Absent: rub, click - Extremities Extremities: pulses symmetrical, No edema Peripheral Pulses: within normal limits - Abdominal General gastrointestinal: Present: soft, non-tender, non-distended, normal bowel sounds Male genitourinary: Present: normal - Integumentary Integumentary: Present: clear, erythema - Musculoskeletal Musculoskeletal: generalized weakness - Psychiatric Psychiatric: no appropriate mood/affect, no intact judgment & insight - Neurologic Neurologic: CNII-XII intact, focal deficits, moves all extremities, gait normal - Vital Signs Vital signs: Vital Signs - 12hr 08/25/21 08/25/21 08/25/21 21:33 22:12 22:38 Temperature 98.2 F Pulse Rate 63 Respiratory 18 18 Rate Blood Pressure 69/12 106/26 O2 Sat by Pulse 100 99 Oximetry 08/26/21 04:28 Temperature 97.8 F Pulse Rate 73 Respiratory 18 Rate Blood Pressure 96/23 O2 Sat by Pulse 95 Oximetry - Lab 08/26/21 05:57 08/26/21 05:57 Most recent lab results Calcium 8.2 mg/dL (8.4-10.2) L 08/26/21 05:57 Medications & Allergies - Medications Allergies/Adverse Reactions: Allergies No Known Allergies Allergy (Verified 03/17/19 12:18) Home Medications: Home Medications Medication Instructions Recorded Confirmed Last Taken Type Calcium Acetate [Phoslo] 667 mg PO TID 03/15/19 08/22/21 Unknown History Insulin Detemir [Levemir VIAL] 5 units SUB-Q QAM 03/15/19 08/22/21 Unknown History Omeprazole 20 mg PO BID 03/15/19 08/22/21 Unknown History Sertraline [Zoloft] 50 mg PO QDAY 03/15/19 08/22/21 Unknown History Sodium Bicarbonate 650 mg PO QID 03/15/19 08/22/21 Unknown History allopurinoL [Zyloprim] 100 mg PO QDAY 03/15/19 08/22/21 Unknown History megestroL [Megestrol] 10 ml PO QDAY 03/15/19 08/22/21 Unknown History Active Medications: Generic Name Dose Route Start Last Admin Trade Name Freq PRN Reason Stop Dose Admin Acetaminophen 650 mg 08/22/21 13:00 Acetaminophen 325 Mg Tab PO Q4H PRN Pain MILD(1-3)/Fever >100.5/NATHAN Albuterol 2.5 mg 08/22/21 12:15 Albuterol 2.5 Mg/3 Ml Nebu IH Q4HRT PRN Shortness Of Breath Allopurinol 100 mg 08/23/21 10:00 08/25/21 12:02 Allopurinol 100 Mg Tab PO Not Given QDAY [facility] Calcium Acetate 667 mg 08/23/21 08:30 08/26/21 08:36 Calcium Acetate 667 Mg Cap PO 667 mg TIDWM ALMA Administration Hydromorphone HCl 0.5 mg 08/22/21 13:00 Hydromorphone 1 Mg/1 Ml Inj IV Q23H PRN Pain , Severe (7-10) Sodium Chloride 100 mls @ 999 mls/hr 08/23/21 13:31 Nacl 0.9% IV HERNANDEZ PRN Hypotension Sodium Chloride 100 mls @ 999 mls/hr 08/25/21 10:21 Nacl 0.9% IV HERNANDEZ PRN Hypotension Sodium Bicarbonate 150 meq/ 1,150 mls @ 50 mls/hr 08/25/21 12:00 08/25/21 16:07 Dextrose IV 50 mls/hr DIRECT ALMA Administration Midodrine 10 mg 08/24/21 08:00 08/26/21 08:36 Midodrine 5 Mg Tab PO 10 mg TID@0800,1200,1600 ALMA Administration Ondansetron HCl 4 mg 08/22/21 12:15 08/25/21 13:06 Ondansetron 4 Mg/2 Ml Inj IV 4 mg Q8H PRN Administration Nausea And Vomiting Oxycodone/Acetaminophen 1 tab 08/22/21 13:00 Oxycodone /Acetaminophen 5-325mg Tab PO Q16H PRN Pain, Moderate (4-6) Pantoprazole Sodium 20 mg 08/22/21 22:00 08/25/21 22:26 Pantoprazole 20 Mg Tab PO 20 mg BID ALMA Administration Sertraline HCl 50 mg 08/23/21 10:00 08/25/21 12:02 Sertraline 50 Mg Tab PO Not Given QDAY ALMA Sodium Bicarbonate 650 mg 08/22/21 14:00 08/25/21 22:26 Sodium Bicarbonate 650 Mg Tab PO 650 mg QID ALMA Administration Sodium Chloride 10 ml 08/22/21 22:00 08/25/21 22:26 Sodium Chloride 0.9% 10 Ml Flush Syringe IV 10 ml BID ALMA Administration Sodium Chloride 10 ml 08/22/21 12:15 Sodium Chloride 0.9% 10 Ml Flush Syringe IV PRN PRN LINE FLUSH
[2021-08-26] MEDS: SERTRALINE 50 MG TAB PO SCH (10:04)
[2021-08-26] MEDS: SODIUM BICARBONATE 650 MG TAB PO SCH ×4 (10:04→22:01)
[2021-08-26] MEDS: PANTOPRAZOLE 20 MG TAB PO SCH ×2 (10:04→22:01)
[2021-08-26] MEDS: allopurinoL 100 MG TAB PO SCH (10:05)
--- NOTE | 2021-08-26 16:49 | Event Note ---
Date: 08/26/21 Went and saw patient. Patient making clucking sounds. Discussed with nurse who reports that patient does not communicate well even in his own language and must contact family for consent. Plan for fistulogram without sedation tomorrow. Catheter dependence is not an optimal plan.
[2021-08-27] MEDS ORDERED: MIDODRINE 5 MG TAB PO ONE (07:24)
[2021-08-27 07:54] LABS: Basophils % (Auto) 0.4 % (0.0-1.8); Eosinophils # (Auto) 0.1 K/mm3 (0.0-0.4); Eosinophils % (Auto) 1.7 % (0.0-4.3); Hematocrit 29.2 % (35.5-45.6); Hemoglobin 9.6 gm/dl (11.8-15.2); Lymphocytes # (Auto) 0.9 K/mm3 (1.2-5.4); Lymphocytes % (Auto) 15.9 % (13.4-35.0); Mean Corpuscular HGB Conc 33 % (32-34); Mean Corpuscular Volume 96 fl (84-94); Monocytes # (Auto) 0.5 K/mm3 (0.0-0.8); Monocytes % (Auto) 9.6 % (0.0-7.3); Platelet Count 96 K/mm3 (140-440); Red Blood Count 3.06 M/mm3 (3.65-5.03); Red Cell Distribution Width 15.6 % (13.2-15.2)
[2021-08-27] MEDS: CALCIUM ACETATE 667 MG CAP PO SCH ×3 (08:00→17:00)
[2021-08-27] MEDS: MIDODRINE 5 MG TAB PO SCH ×3 (08:00→16:00)
[2021-08-27 08:02] LABS: Calcium 7.7 mg/dL (8.4-10.2)
[2021-08-27] MEDS: allopurinoL 100 MG TAB PO SCH (09:44)
[2021-08-27] MEDS: SODIUM BICARBONATE 650 MG TAB PO SCH ×4 (09:44→22:21)
[2021-08-27] MEDS: PANTOPRAZOLE 20 MG TAB PO SCH ×2 (09:44→22:21)
[2021-08-27] MEDS: SERTRALINE 50 MG TAB PO SCH (09:44)
[2021-08-27] MEDS ORDERED: HEPARIN/NS 5000 UNIT/500ML 500 ML IR ONE (10:13)
[2021-08-27] MEDS ORDERED: LIDOCAINE (2%) 20 MG/1 ML VIAL 20 ML MDV INFILTRATI ONE ×4 (10:14→10:51)
[2021-08-27] MEDS ORDERED: SODIUM CHLORIDE 0.9% 500 ML 500 ML ONE (10:14)
[2021-08-27] MEDS ORDERED: ceFAZolin/Water 2 GM/20 ML 2 GM/20 ML SYRINGE IV ONE (10:32)
[2021-08-27] MEDS ORDERED: ceFAZolin/STERILE WATER 2 GM/20 ML SYRINGE IV ONE (10:35)
[2021-08-27] MEDS ORDERED: HEPARIN 10,000 UNITS/10 ML VIAL ONE (10:40)
--- NOTE | 2021-08-27 12:24 | Operative Report ---
Operative Report Operative Report: EXAM: 1. Ultrasound-guided access of the left arm AV graft towards the venous anastomosis. 2. Fistulogram. 3. Angioplasty of the AV graft with a 9 mm x 60 mm angioplasty balloon 4. Ultrasound-guided access of the left arm AV graft towards the arterial anastomosis. 5. Selection of the proximal brachial artery in a retrograde fashion with angiography of the left upper extremity. 6. Angioplasty of the arterial anastomosis with a 6 mm x 40 mm angioplasty balloon. 7. Selection of the distal brachial artery in a retrograde fashion with angiography of the left upper extremity. 8. Angioplasty of the distal brachial artery with a 6 mm x 40 mm angioplasty balloon DATE: 08/27/2021 FORM BUILDER: VILMA RAMOS MD INDICATION: AV graft malfunction with low flow rates MEDICATIONS: Please see nursing report for full details. DEVICES: 9 mm x 60 mm angioplasty balloon 6 mm x 40 mm angioplasty balloon PROCEDURE: The risks, benefits, and alternatives of the procedure were discussed and written informed consent was obtained. The patient was transported in stable condition to the angiography suite. The patient's left arm AV graft was assessed by ultrasound and was patent. The patient was prepped and draped in a sterile fashion. Under ultrasound guidance, the left arm AV graft was accessed with a 21-gauge micropuncture needle. The area was anesthetized prior to access. 0.018 inch wire was advanced through the micropuncture needle into the fistula and then the needle was exchanged for a 5 [place] transitional dilator. The inner dilator and wire were removed and a 0.035 inch wire was advanced through the venous outflow. The transitional dilator was exchanged for a 7 [place] short sheath. Fistulogram was performed of the venous outflow and central veins. Reflux into the arterial anastomosis was performed. Digital subtraction angiography demonstrated a 80% stenosis at the arterial anastomosis, and irregular 40% stenoses in the mid portion of the graft. The brachial artery proximal to the anastomosis was patent. The brachial artery distal to the anastomosis had a 70% stenosis. At the venous anastomosis was a stent which was widely patent. The axillary vein was patent. The subclavian vein was patent. The left innominate vein and SVC were both patent. 9 mm x 60 mm angioplasty balloon was used to perform angioplasty at the midportion of the graft. Digital subtraction angiography demonstrated resolution of the stenosis at the midportion of the graft. Under ultrasound guidance, the left arm AV graft was accessed with a 21-gauge micropuncture needle. The area was anesthetized prior to access. 0.018 inch wire was advanced through the micropuncture needle into the fistula and then the needle was exchanged for a 5 [place] transitional dilator. The inner dilator and wire were removed and a 0.035 inch wire was advanced through the arterial anastomosis. The transitional dilator was exchanged for a 6 [place] short sheath. Angled catheter was advanced over the wire and used to select the brachial artery in a retrograde fashion. The proximal brachial artery was selected and digital subtraction angiography was performed confirming position. 6 mm x 40 mm angioplasty balloon was used to perform angioplasty of the anastomosis. Repeat digital subtraction angiography was performed demonstrating less than 10% residual narrowing of the arterial anastomosis. The distal brachial artery stenosis was still present. The distal brachial artery was then selected and digital subtraction angiography was performed confirming position. 6 mm x 40 mm angioplasty balloon was used to perform angioplasty of the distal brachial artery. Digital subtraction angiography demonstrated 20% residual narrowing. At this point, all of the wires, catheters, and sheaths were removed and each site was closed with a 4-0 Vicryl suture. Hemostasis was then achieved with sl ight manual compression. The patient was transported from the angiography suite in stable condition. IMPRESSION: Successful peripheral dialysis access angioplasty. Successful angioplasty of the brachial artery.
--- NOTE | 2021-08-27 12:26 | Progress Note ---
Assessment and Plan Impression: * ESRD * hyperkalemia * hypotension * malfunctioning av access * HTN * anemia in esrd Plan: * prior to hospitalization, no dialysis in one week due to malfunctioning av access with hypotension * Appreciate IR, permacath placed 08/25 for access; s/p STAT HD 08/25 after CVC placement * Per HD nurses, CVC sluggish on 08/25 * Continue HD // per outpatient, due today after computer lab aide * Appreciate vascular- note fistulagram today, agree that CVC is not optimal for this patient * keep map >65, BPs soft but stable. Transfer to icu for vasopressors if unable to maintain MAP * Continue midodrine for low bp * daily lytes * renal diet * strict i/os Subjective Date of service: 08/27/21 Principal diagnosis: esrd Interval history: Resting this AM. Attempted HD yesterday, CVC was sluggish unfortunately complicated by hypotension Objective - Exam Narrative Exam: General appearance: Present: no distress, non-Surinamese speaking - EENT Eyes: Present: PERRL ENT: clear oral mucosa, hearing decreased - Neck Neck: Present: supple, normal ROM - Respiratory Respiratory effort: normal Respiratory: bilateral: CTA - Cardiovascular Heart Sounds: Present: S1 & S2. Absent: rub, click - Extremities Extremities: pulses symmetrical, No edema Peripheral Pulses: within normal limits - Abdominal General gastrointestinal: Present: soft, non-tender, non-distended, normal bowel sounds Male genitourinary: Present: normal - Integumentary Integumentary: Present: clear, erythema - Musculoskeletal Musculoskeletal: generalized weakness - Psychiatric Psychiatric: no appropriate mood/affect, no intact judgment & insight - Neurologic Neurologic: CNII-XII intact, focal deficits, moves all extremities, gait normal - Vital Signs Vital signs: Vital Signs - 12hr 08/27/21 08/27/21 06:14 09:40 Temperature 98.0 F Pulse Rate 74 68 Respiratory 18 Rate Blood Pressure 83/31 Blood Pressure 100/58 [Left] O2 Sat by Pulse 90 Oximetry - Lab 08/27/21 07:40 08/27/21 07:40 Most recent lab results Calcium 7.7 mg/dL (8.4-10.2) L 08/27/21 07:40 Medications & Allergies - Medications Allergies/Adverse Reactions: Allergies No Known Allergies Allergy (Verified 04/25/19 12:18) Home Medications: Home Medications Medication Instructions Recorded Confirmed Last Taken Type Calcium Acetate [Phoslo] 667 mg PO TID 03/15/19 08/22/21 Unknown History Insulin Detemir [Levemir VIAL] 5 units SUB-Q QAM 03/15/19 08/22/21 Unknown History Omeprazole 20 mg PO BID 03/15/19 08/22/21 Unknown History Sertraline [Zoloft] 50 mg PO QDAY 03/15/19 08/22/21 Unknown History Sodium Bicarbonate 650 mg PO QID 03/15/19 08/22/21 Unknown History allopurinoL [Zyloprim] 100 mg PO QDAY 03/15/19 08/22/21 Unknown History megestroL [Megestrol] 10 ml PO QDAY 03/15/19 08/22/21 Unknown History Active Medications: Generic Name Dose Route Start Last Admin Trade Name Freq PRN Reason Stop Dose Admin Acetaminophen 650 mg 08/22/21 13:00 Acetaminophen 325 Mg Tab PO Q4H PRN Pain MILD(1-3)/Fever >100.5/NATHAN Albuterol 2.5 mg 08/22/21 12:15 Albuterol 2.5 Mg/3 Ml Nebu IH Q4HRT PRN Shortness Of Breath Allopurinol 100 mg 08/23/21 10:00 08/27/21 09:44 Allopurinol 100 Mg Tab PO Not Given QDAY [facility] Calcium Acetate 667 mg 08/23/21 08:30 08/27/21 08:00 Calcium Acetate 667 Mg Cap PO Not Given TIDWM [facility] Hydromorphone HCl 0.5 mg 08/22/21 13:00 Hydromorphone 1 Mg/1 Ml Inj IV Q23H PRN Pain , Severe (7-10) Sodium Chloride 100 mls @ 999 mls/hr 08/23/21 13:31 Nacl 0.9% IV HERNANDEZ PRN Hypotension Sodium Chloride 100 mls @ 999 mls/hr 08/25/21 10:21 Nacl 0.9% IV HERNANDEZ PRN Hypotension Midodrine 10 mg 08/24/21 08:00 08/27/21 08:00 Midodrine 5 Mg Tab PO Not Given TID@0800,1200,1600 [facility] Ondansetron HCl 4 mg 08/22/21 12:15 08/25/21 13:06 Ondansetron 4 Mg/2 Ml Inj IV 4 mg Q8H PRN Administration Nausea And Vomiting Oxycodone/Acetaminophen 1 tab 08/22/21 13:00 Oxycodone /Acetaminophen 5-325mg Tab PO Q16H PRN Pain, Moderate (4-6) Pantoprazole Sodium 20 mg 08/22/21 22:00 08/27/21 09:44 Pantoprazole 20 Mg Tab PO Not Given BID ALMA Sertraline HCl 50 mg 08/23/21 10:00 08/27/21 09:44 Sertraline 50 Mg Tab PO Not Given QDAY ALMA Sodium Bicarbonate 650 mg 08/22/21 14:00 08/27/21 09:44 Sodium Bicarbonate 650 Mg Tab PO Not Given QID ALMA Sodium Chloride 10 ml 08/22/21 22:00 08/27/21 09:44 Sodium Chloride 0.9% 10 Ml Flush Syringe IV Not Given BID ALMA Sodium Chloride 10 ml 08/22/21 12:15 Sodium Chloride 0.9% 10 Ml Flush Syringe IV PRN PRN LINE FLUSH
--- NOTE | 2021-08-27 12:55 | Progress Note ---
Assessment and Plan Assessment and plan: ESRD. Hypotension Diabetes mellitus type 2. 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 Hyperkalemia History of gout. GERD. 08/23/2021. Hypotension has resolved with systolic blood pressure in the 150s this morning. Consider midodrine if patient has any more episodes. We will continue to monitor today. Anticipate discharge in a.m. if remains stable. Continue Accu-Cheks and SSRI. Continue hemodialysis per nephrology recommendations. 08/24/2021. Dr. Branch reports patient appears to have a functioning AV fistula. Resume hemodialysis per nephrology. Patient with hypotension last evening and this morning. We will initiate midodrine. Follow-up stat BMP. 08/25/2021. Tunneled catheter placement per nephrology and vascular surgery. Continue midodrine for hypotension. Continue IV fluids per nephrology recommendations. We will give 60 of Kayexalate for hyperkalemia with potassium of 6.0. Consider insulin and glucose. 08/26/2021. Vas-Cath placed by IR yesterday. Hemodialysis per nephrology. Continue midodrine for hypotension. Hyperkalemia resolved. Check echocardiogram to assess systolic function. Also check TSH and random cortisol levels. 08/27/2021 Patient with ESRD on dialysis, hypotension. Patient with AV graft malfunction s/p angioplasty today by Vasc Surgeon. History Interval history: Patient with hypotension, av graft malfunction Hospitalist Physical - Physical exam Narrative exam: Gen: Not in acute distress, lying in bed HEENT: Normocephalic, atraumatic Neck: supple Lungs: Clear to auscultation bilaterally, no wheeze Heart: S1 and S2 reg, no murmurs, rubs or gallop Abd:soft, non-tender, non distended, normal bowel sounds Ext: left arm av graft, no cyanosis Neuro: Awake, alert - Constitutional Vitals: Temp Pulse Resp BP Pulse Ox 98.0 F 61 18 109/51 90 08/27/21 06:14 08/27/21 12:32 08/27/21 06:14 08/27/21 12:32 08/27/21 06:14 General appearance: Present: no acute distress HEART Score - HEART Score Troponin: Troponin T 0.069 ng/mL (0.00-0.029) H 08/22/21 10:47 Results - Labs CBC & Chem 7: 08/27/21 07:40 08/27/21 07:40 Labs: Laboratory Last Values WBC 5.4 K/mm3 (4.5-11.0) 08/27/21 07:40 RBC 3.06 M/mm3 (3.65-5.03) L 08/27/21 07:40 Hgb 9.6 gm/dl (11.8-15.2) L 08/27/21 07:40 Hct 29.2 % (35.5-45.6) L 08/27/21 07:40 MCV 96 fl (84-94) H 08/27/21 07:40 MCH 31 pg (28-32) 08/27/21 07:40 MCHC 33 % (32-34) 08/27/21 07:40 RDW 15.6 % (13.2-15.2) H 08/27/21 07:40 Plt Count 96 K/mm3 (140-440) L 08/27/21 07:40 Lymph % (Auto) 15.9 % (13.4-35.0) 08/27/21 07:40 [place] % (Auto) 9.6 % (0.0-7.3) H 08/27/21 07:40 Eos % (Auto) 1.7 % (0.0-4.3) 08/27/21 07:40 Baso % (Auto) 0.4 % (0.0-1.8) 08/27/21 07:40 Lymph # (Auto) 0.9 K/mm3 (1.2-5.4) L 08/27/21 07:40 [place] # (Auto) 0.5 K/mm3 (0.0-0.8) 08/27/21 07:40 Eos # (Auto) 0.1 K/mm3 (0.0-0.4) 08/27/21 07:40 Baso # (Auto) 0.0 K/mm3 (0.0-0.1) 08/27/21 07:40 Seg Neutrophils % 72.4 % (40.0-70.0) H 08/27/21 07:40 Seg Neutrophils # 3.9 K/mm3 (1.8-7.7) 08/27/21 07:40 Sodium 137 mmol/L (137-145) 08/27/21 07:40 Potassium 4.7 mmol/L (3.6-5.0) 08/27/21 07:40 Chloride 98.5 mmol/L (98-107) 08/27/21 07:40 Carbon Dioxide 24 mmol/L (22-30) 08/27/21 07:40 Anion Gap 19 mmol/L 08/27/21 07:40 BUN 31 mg/dL (9-20) H 08/27/21 07:40 Creatinine 14.6 mg/dL (0.8-1.3) H 08/27/21 07:40 Estimated GFR 3 ml/min 08/27/21 07:40 BUN/Creatinine Ratio 2 % 08/27/21 07:40 Glucose 84 mg/dL (75-100) 08/27/21 07:40 Lactic Acid 1.40 mmol/L (0.7-2.0) 08/23/21 00:13 Calcium 7.7 mg/dL (8.4-10.2) L 08/27/21 07:40 Total Bilirubin 0.30 mg/dL (0.1-1.2) 08/22/21 10:47 AST 68 units/L (5-40) H 08/22/21 10:47 ALT 62 units/L (7-56) H 08/22/21 10:47 Alkaline Phosphatase 231 units/L (35-129) H 08/22/21 10:47 Troponin T 0.069 ng/mL (0.00-0.029) H 08/22/21 10:47 Total Protein 5.6 g/dL (6.3-8.2) L 08/22/21 10:47 Albumin 3.1 g/dL (3.9-5) L 08/22/21 10:47 Albumin/Globulin Ratio 1.2 % 08/22/21 10:47 Triglycerides 87 mg/dL (2-149) 08/22/21 10:47 Cholesterol 81 mg/dL (50-199) 08/22/21 10:47 LDL Cholesterol Direct 20 mg/dL (50-130) L 08/22/21 10:47 HDL Cholesterol 49 mg/dL (40-59) 08/22/21 10:47 Cholesterol/HDL Ratio 1.65 % 08/22/21 10:47 TSH 6.140 mlU/mL (0.270-4.200) H 08/26/21 23:46 Free T4 1.10 ng/dL (0.76-1.46) 08/27/21 Unknown Hepatitis A IgM Ab Non-reactive (NonReactive) 08/24/21 07:17 Hep Bs Antigen Nonreactive (Negative) 08/24/21 07:17 Hep B Core IgM Ab Non-reactive (NonReactive) 08/24/21 07:17 Hepatitis C Antibody Non-reactive (NonReactive) 08/24/21 07:17 Microbiology: Microbiology 08/22/21 10:47 Peripheral/Venous Blood Culture - Final NO GROWTH AFTER 5 DAYS 08/22/21 10:47 Peripheral/Venous Blood Culture - Final NO GROWTH AFTER 5 DAYS Reynaga/IV: Voiding Method Condom Catheter Active Medications - Current Medications Current Medications: Generic Name Dose Route Start Last Admin Trade Name Freq PRN Reason Stop Dose Admin Acetaminophen 650 mg 08/22/21 13:00 Acetaminophen 325 Mg Tab PO Q4H PRN Pain MILD(1-3)/Fever >100.5/NATHAN Albuterol 2.5 mg 08/22/21 12:15 Albuterol 2.5 Mg/3 Ml Nebu IH Q4HRT PRN Shortness Of Breath Allopurinol 100 mg 08/23/21 10:00 08/27/21 09:44 Allopurinol 100 Mg Tab PO Not Given QDAY [facility] Calcium Acetate 667 mg 08/23/21 08:30 08/27/21 08:00 Calcium Acetate 667 Mg Cap PO Not Given TIDWM ALMA Hydromorphone HCl 0.5 mg 08/22/21 13:00 Hydromorphone 1 Mg/1 Ml Inj IV Q23H PRN Pain , Severe (7-10) Sodium Chloride 100 mls @ 999 mls/hr 08/23/21 13:31 Nacl 0.9% IV HERNANDEZ PRN Hypotension Sodium Chloride 100 mls @ 999 mls/hr 08/25/21 10:21 Nacl 0.9% IV HERNANDEZ PRN Hypotension Midodrine 10 mg 08/24/21 08:00 08/27/21 08:00 Midodrine 5 Mg Tab PO Not Given TID@0800,1200,1600 [facility] Ondansetron HCl 4 mg 08/22/21 12:15 08/25/21 13:06 Ondansetron 4 Mg/2 Ml Inj IV 4 mg Q8H PRN Administration Nausea And Vomiting Oxycodone/Acetaminophen 1 tab 08/22/21 13:00 Oxycodone /Acetaminophen 5-325mg Tab PO Q16H PRN Pain, Moderate (4-6) Pantoprazole Sodium 20 mg 08/22/21 22:00 08/27/21 09:44 Pantoprazole 20 Mg Tab PO Not Given BID ALMA Sertraline HCl 50 mg 08/23/21 10:00 08/27/21 09:44 Sertraline 50 Mg Tab PO Not Given QDAY ALMA Sodium Bicarbonate 650 mg 08/22/21 14:00 08/27/21 09:44 Sodium Bicarbonate 650 Mg Tab PO Not Given QID ALMA Sodium Chloride 10 ml 08/22/21 22:00 08/27/21 09:44 Sodium Chloride 0.9% 10 Ml Flush Syringe IV Not Given BID ALMA Sodium Chloride 10 ml 08/22/21 12:15 Sodium Chloride 0.9% 10 Ml Flush Syringe IV PRN PRN LINE FLUSH Nutrition/Malnutrition Assess - Dietary Evaluation Nutrition/Malnutrition Findings: Nutrition Notes Start: 08/23/21 13:57 Freq: Status: Active Protocol: Document 08/23/21 13:57 BRITANY (Rec: 08/23/21 14:59 BRITANY [id number]) Nutrition Notes Need for Assessment generated from: MD Order Initial or Follow up Assessment Other Pertinent Diagnosis Transient hypotension, ESRD- Dialysis, 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 Current Diet Renal Diet Labs/Tests 08/23: K 5.7, CO2 20, BUN 67, Cr 23.0. Pertinent Medications Reviewed. Height 5 ft 1 in Weight 57.15 kg [place] Body Weight (kg) 50.90 BMI 23.8 Intake Prior to Admission Good Weight Status Appropriate Subjective/Other Information Pt needs dialysis 3Xweek, and uses colostomy bag. 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 Is patient on ventilator? No Is Patient Ambulatory and/or Out of Bed Yes REE-([place]-St. Jeor-ambulatory/OOB) [ 1598.844 NUTR.[id number]] Kcal/Kg value to use for calculation 27 Approximate Energy Requirements Using 1543 kcal/Kg Calculation Used for Recommendations Kcal/kg Additional Notes Protein: 0.8-1.0 g/Kg/day; 41- 51 g/day; 164-204 Kcal/day ( from IBW and Dialysis) Fluids: 1.0 ml/Kcal, or as per MD. Nutrition Intervention Change Diet Order: Continue Renal Diet Add Supplement/Snack (indicate name/kcal 2 X 8 fl oz Nepro with /protein ) Carbsteady Provides kCal: 850 Provides Protein (gm) 38 Goal #1 Maintain [place] energy/ protein balance during LOS Goal #2 Maintain body weight within +/ -3% of actual BW during LOS Goal #3 Achieve and maintain acceptable chemistry lab values during LOS Follow-Up By: 08/30/21 Additional Comments Continue monitoring intake of meals, BM, and tolerance of supplements.
--- NOTE | 2021-08-27 13:47 | Event Note ---
Date: 08/27/21 Successful angioplasty of AV graft. They used AV graft for dialysis today which was successful. If after next dialysis session, there is no issues with AV graft, then please remove Vas-Cath afterwards.
[2021-08-28] MEDS: CALCIUM ACETATE 667 MG CAP PO SCH ×3 (09:28→17:55)
[2021-08-28] MEDS: MIDODRINE 5 MG TAB PO SCH ×3 (09:28→16:00)
--- NOTE | 2021-08-28 10:41 | Progress Note ---
Assessment and Plan Impression: * ESRD * hyperkalemia * hypotension * malfunctioning av access * HTN * anemia in esrd Plan: * prior to hospitalization, no dialysis in one week due to malfunctioning av access with hypotension * Appreciate IR, permacath placed 08/25 for access; s/p STAT HD 08/25 after CVC placement * Continue HD // per outpatient, due tomorrow. Agree with vascular- if AVG continues to work well, can remove CVC prior to discharge * S/p fistulogram 08/27 with declot, successful * keep map >65, BPs soft but stable * Continue midodrine for low bp * daily lytes * renal diet * strict i/os Subjective Date of service: 08/28/21 Principal diagnosis: esrd Interval history: Resting this AM. S/p declot of AVG yesterday, had HD and tolerated well via AVG. Objective - Exam Narrative Exam: General appearance: Present: no distress, non-Irish speaking - EENT Eyes: Present: PERRL ENT: clear oral mucosa, hearing decreased - Neck Neck: Present: supple, normal ROM - Respiratory Respiratory effort: normal Respiratory: bilateral: CTA - Cardiovascular Heart Sounds: Present: S1 & S2. Absent: rub, click - Extremities Extremities: pulses symmetrical, No edema Peripheral Pulses: within normal limits - Abdominal General gastrointestinal: Present: soft, non-tender, non-distended, normal bowel sounds Male genitourinary: Present: normal - Integumentary Integumentary: Present: clear, erythema - Musculoskeletal Musculoskeletal: generalized weakness - Psychiatric Psychiatric: no appropriate mood/affect, no intact judgment & insight - Neurologic Neurologic: CNII-XII intact, focal deficits, moves all extremities, gait normal - Vital Signs Vital signs: Vital Signs - 12hr 08/28/21 04:33 Temperature 98.6 F Pulse Rate 93 H Respiratory 16 Rate Blood Pressure 97/48 O2 Sat by Pulse 99 Oximetry - Lab 08/27/21 07:40 08/27/21 07:40 Most recent lab results Calcium 7.7 mg/dL (8.4-10.2) L 08/27/21 07:40 Medications & Allergies - Medications Allergies/Adverse Reactions: Allergies No Known Allergies Allergy (Verified 03/17/19 12:18) Home Medications: Home Medications Medication Instructions Recorded Confirmed Last Taken Type Calcium Acetate [Phoslo] 667 mg PO TID 03/15/19 08/22/21 Unknown History Insulin Detemir [Levemir VIAL] 5 units SUB-Q QAM 03/15/19 08/22/21 Unknown History Omeprazole 20 mg PO BID 03/15/19 08/22/21 Unknown History Sertraline [Zoloft] 50 mg PO QDAY 03/15/19 08/22/21 Unknown History Sodium Bicarbonate 650 mg PO QID 03/15/19 08/22/21 Unknown History allopurinoL [Zyloprim] 100 mg PO QDAY 03/15/19 08/22/21 Unknown History megestroL [Megestrol] 10 ml PO QDAY 03/15/19 08/22/21 Unknown History Active Medications: Generic Name Dose Route Start Last Admin Trade Name Freq PRN Reason Stop Dose Admin Acetaminophen 650 mg 08/22/21 13:00 Acetaminophen 325 Mg Tab PO Q4H PRN Pain MILD(1-3)/Fever >100.5/NATHAN Albuterol 2.5 mg 08/22/21 12:15 Albuterol 2.5 Mg/3 Ml Nebu IH Q4HRT PRN Shortness Of Breath Allopurinol 100 mg 08/23/21 10:00 08/27/21 09:44 Allopurinol 100 Mg Tab PO Not Given QDAY [facility] Calcium Acetate 667 mg 08/23/21 08:30 08/28/21 09:28 Calcium Acetate 667 Mg Cap PO 667 mg TIDWM ALMA Administration Hydromorphone HCl 0.5 mg 08/22/21 13:00 Hydromorphone 1 Mg/1 Ml Inj IV Q23H PRN Pain , Severe (7-10) Sodium Chloride 100 mls @ 999 mls/hr 08/25/21 10:21 Nacl 0.9% IV HERNANDEZ PRN Hypotension Midodrine 10 mg 08/24/21 08:00 08/28/21 09:28 Midodrine 5 Mg Tab PO 10 mg TID@0800,1200,1600 ALMA Administration Ondansetron HCl 4 mg 08/22/21 12:15 08/25/21 13:06 Ondansetron 4 Mg/2 Ml Inj IV 4 mg Q8H PRN Administration Nausea And Vomiting Oxycodone/Acetaminophen 1 tab 08/22/21 13:00 08/27/21 22:20 Oxycodone /Acetaminophen 5-325mg Tab PO 1 tab Q16H PRN Administration Pain, Moderate (4-6) Pantoprazole Sodium 20 mg 08/22/21 22:00 08/27/21 22:21 Pantoprazole 20 Mg Tab PO 20 mg BID ALMA Administration Sertraline HCl 50 mg 08/23/21 10:00 08/27/21 09:44 Sertraline 50 Mg Tab PO Not Given QDAY ALMA Sodium Bicarbonate 650 mg 08/22/21 14:00 08/27/21 22:21 Sodium Bicarbonate 650 Mg Tab PO 650 mg QID ALMA Administration Sodium Chloride 10 ml 08/22/21 22:00 08/27/21 22:21 Sodium Chloride 0.9% 10 Ml Flush Syringe IV 10 ml BID ALMA Administration Sodium Chloride 10 ml 08/22/21 12:15 Sodium Chloride 0.9% 10 Ml Flush Syringe IV PRN PRN LINE FLUSH
[2021-08-28] MEDS: PANTOPRAZOLE 20 MG TAB PO SCH ×2 (11:34→21:33)
[2021-08-28] MEDS: allopurinoL 100 MG TAB PO SCH (11:34)
[2021-08-28] MEDS: SODIUM BICARBONATE 650 MG TAB PO SCH ×4 (11:34→21:33)
[2021-08-28] MEDS: SERTRALINE 50 MG TAB PO SCH (11:35)
--- NOTE | 2021-08-28 13:29 | Progress Note ---
Assessment and Plan Assessment and plan: ESRD. Hypotension Diabetes mellitus type 2. 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 Hyperkalemia History of gout. GERD. 08/23/2021. Hypotension has resolved with systolic blood pressure in the 150s this morning. Consider midodrine if patient has any more episodes. We will continue to monitor today. Anticipate discharge in a.m. if remains stable. Continue Accu-Cheks and SSRI. Continue hemodialysis per nephrology recommendations. 08/24/2021. Dr. Branch reports patient appears to have a functioning AV fistula. Resume hemodialysis per nephrology. Patient with hypotension last evening and this morning. We will initiate midodrine. Follow-up stat BMP. 08/25/2021. Tunneled catheter placement per nephrology and vascular surgery. Continue midodrine for hypotension. Continue IV fluids per nephrology recommendations. We will give 60 of Kayexalate for hyperkalemia with potassium of 6.0. Consider insulin and glucose. 08/26/2021. Vas-Cath placed by IR yesterday. Hemodialysis per nephrology. Continue midodrine for hypotension. Hyperkalemia resolved. Check echocardiogram to assess systolic function. Also check TSH and random cortisol levels. 08/27/2021 Patient with ESRD on dialysis, hypotension. Patient with AV graft malfunction s/p angioplasty today by Vasc Surgeon. 08/28/2021 Patient with ESRD on hemodialysis. He was sent from dialysis center because of hypotension. He had av graft malfunction s/p angioplasty yesterday by vasc Surgeon. For hemodialysis tomorrow. Poss dc tomorrow after dialysis if graft works well. Vasc surgeon recommends removal of Vasc cath if av graft works well. Vasc surgeon and Nephrology to determine if ok for discharge. History Interval history: Patient with hypotension, av graft malfunction s/p angioplasty yesterday Hospitalist Physical - Physical exam Narrative exam: Gen: Not in acute distress, lying in bed HEENT: Normocephalic, atraumatic Neck: supple Lungs: Clear to auscultation bilaterally, no wheeze Heart: S1 and S2 reg, no murmurs, rubs or gallop Abd:soft, non-tender, non distended, normal bowel sounds Ext: left arm av graft, no cyanosis Neuro: Awake, alert - Constitutional Vitals: Temp Pulse Resp BP Pulse Ox 98.3 F 93 H 18 99/39 98 08/28/21 11:19 08/28/21 11:19 08/28/21 11:19 08/28/21 11:19 08/28/21 11:19 General appearance: Present: no acute distress HEART Score - HEART Score Troponin: Troponin T 0.069 ng/mL (0.00-0.029) H 08/22/21 10:47 Results - Labs CBC & Chem 7: 08/27/21 07:40 08/27/21 07:40 Labs: Laboratory Last Values WBC 5.4 K/mm3 (4.5-11.0) 08/27/21 07:40 RBC 3.06 M/mm3 (3.65-5.03) L 08/27/21 07:40 Hgb 9.6 gm/dl (11.8-15.2) L 08/27/21 07:40 Hct 29.2 % (35.5-45.6) L 08/27/21 07:40 MCV 96 fl (84-94) H 08/27/21 07:40 MCH 31 pg (28-32) 08/27/21 07:40 MCHC 33 % (32-34) 08/27/21 07:40 RDW 15.6 % (13.2-15.2) H 08/27/21 07:40 Plt Count 96 K/mm3 (140-440) L 08/27/21 07:40 Lymph % (Auto) 15.9 % (13.4-35.0) 08/27/21 07:40 [place] % (Auto) 9.6 % (0.0-7.3) H 08/27/21 07:40 Eos % (Auto) 1.7 % (0.0-4.3) 08/27/21 07:40 Baso % (Auto) 0.4 % (0.0-1.8) 08/27/21 07:40 Lymph # (Auto) 0.9 K/mm3 (1.2-5.4) L 08/27/21 07:40 [place] # (Auto) 0.5 K/mm3 (0.0-0.8) 08/27/21 07:40 Eos # (Auto) 0.1 K/mm3 (0.0-0.4) 08/27/21 07:40 Baso # (Auto) 0.0 K/mm3 (0.0-0.1) 08/27/21 07:40 Seg Neutrophils % 72.4 % (40.0-70.0) H 08/27/21 07:40 Seg Neutrophils # 3.9 K/mm3 (1.8-7.7) 08/27/21 07:40 Sodium 137 mmol/L (137-145) 08/27/21 07:40 Potassium 4.7 mmol/L (3.6-5.0) 08/27/21 07:40 Chloride 98.5 mmol/L (98-107) 08/27/21 07:40 Carbon Dioxide 24 mmol/L (22-30) 08/27/21 07:40 Anion Gap 19 mmol/L 08/27/21 07:40 BUN 31 mg/dL (9-20) H 08/27/21 07:40 Creatinine 14.6 mg/dL (0.8-1.3) H 08/27/21 07:40 Estimated GFR 3 ml/min 08/27/21 07:40 BUN/Creatinine Ratio 2 % 08/27/21 07:40 Glucose 84 mg/dL (75-100) 08/27/21 07:40 Lactic Acid 1.40 mmol/L (0.7-2.0) 08/23/21 00:13 Calcium 7.7 mg/dL (8.4-10.2) L 08/27/21 07:40 Total Bilirubin 0.30 mg/dL (0.1-1.2) 08/22/21 10:47 AST 68 units/L (5-40) H 08/22/21 10:47 ALT 62 units/L (7-56) H 08/22/21 10:47 Alkaline Phosphatase 231 units/L (35-129) H 08/22/21 10:47 Troponin T 0.069 ng/mL (0.00-0.029) H 08/22/21 10:47 Total Protein 5.6 g/dL (6.3-8.2) L 08/22/21 10:47 Albumin 3.1 g/dL (3.9-5) L 08/22/21 10:47 Albumin/Globulin Ratio 1.2 % 08/22/21 10:47 Triglycerides 87 mg/dL (2-149) 08/22/21 10:47 Cholesterol 81 mg/dL (50-199) 08/22/21 10:47 LDL Cholesterol Direct 20 mg/dL (50-130) L 08/22/21 10:47 HDL Cholesterol 49 mg/dL (40-59) 08/22/21 10:47 Cholesterol/HDL Ratio 1.65 % 08/22/21 10:47 TSH 6.140 mlU/mL (0.270-4.200) H 08/26/21 23:46 Free T4 1.10 ng/dL (0.76-1.46) 08/27/21 Unknown Hepatitis A IgM Ab Non-reactive (NonReactive) 08/24/21 07:17 Hep Bs Antigen Nonreactive (Negative) 08/24/21 07:17 Hep B Core IgM Ab Non-reactive (NonReactive) 08/24/21 07:17 Hepatitis C Antibody Non-reactive (NonReactive) 08/24/21 07:17 Microbiology: Microbiology 08/22/21 10:47 Peripheral/Venous Blood Culture - Final NO GROWTH AFTER 5 DAYS 08/22/21 10:47 Peripheral/Venous Blood Culture - Final NO GROWTH AFTER 5 DAYS [place]/IV: Voiding Method Condom Catheter Active Medications - Current Medications Current Medications: Generic Name Dose Route Start Last Admin Trade Name Freq PRN Reason Stop Dose Admin Acetaminophen 650 mg 08/22/21 13:00 Acetaminophen 325 Mg Tab PO Q4H PRN Pain MILD(1-3)/Fever >100.5/NATHAN Albuterol 2.5 mg 08/22/21 12:15 Albuterol 2.5 Mg/3 Ml Nebu IH Q4HRT PRN Shortness Of Breath Allopurinol 100 mg 08/23/21 10:00 08/28/21 11:34 Allopurinol 100 Mg Tab PO 100 mg QDAY ALMA Administration Calcium Acetate 667 mg 08/23/21 08:30 08/28/21 11:34 Calcium Acetate 667 Mg Cap PO 667 mg TIDWM ALMA Administration Hydromorphone HCl 0.5 mg 08/22/21 13:00 Hydromorphone 1 Mg/1 Ml Inj IV Q23H PRN Pain , Severe (7-10) Sodium Chloride 100 mls @ 999 mls/hr 08/25/21 10:21 Nacl 0.9% IV HERNANDEZ PRN Hypotension Midodrine 10 mg 08/24/21 08:00 08/28/21 12:13 Midodrine 5 Mg Tab PO 10 mg TID@0800,1200,1600 ALMA Administration Ondansetron HCl 4 mg 08/22/21 12:15 08/25/21 13:06 Ondansetron 4 Mg/2 Ml Inj IV 4 mg Q8H PRN Administration Nausea And Vomiting Oxycodone/Acetaminophen 1 tab 08/22/21 13:00 08/27/21 22:20 Oxycodone /Acetaminophen 5-325mg Tab PO 1 tab Q16H PRN Administration Pain, Moderate (4-6) Pantoprazole Sodium 20 mg 08/22/21 22:00 08/28/21 11:34 Pantoprazole 20 Mg Tab PO 20 mg BID ALMA Administration Sertraline HCl 50 mg 08/23/21 10:00 08/28/21 11:35 Sertraline 50 Mg Tab PO 50 mg QDAY ALMA Administration Sodium Bicarbonate 650 mg 08/22/21 14:00 08/28/21 11:34 Sodium Bicarbonate 650 Mg Tab PO 650 mg QID ALMA Administration Sodium Chloride 10 ml 08/22/21 22:00 08/27/21 22:21 Sodium Chloride 0.9% 10 Ml Flush Syringe IV 10 ml BID ALMA Administration Sodium Chloride 10 ml 08/22/21 12:15 Sodium Chloride 0.9% 10 Ml Flush Syringe IV PRN PRN LINE FLUSH Nutrition/Malnutrition Assess - Dietary Evaluation Nutrition/Malnutrition Findings: Nutrition Notes Start: 08/23/21 13:57 Freq: Status: Active Protocol: Document 08/23/21 13:57 BRITANY (Rec: 08/23/21 14:59 BRITANY [id number]) Nutrition Notes Need for Assessment generated from: MD Order Initial or Follow up Assessment Other Pertinent Diagnosis Transient hypotension, ESRD- Dialysis, 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 Current Diet Renal Diet Labs/Tests 08/23: K 5.7, CO2 20, BUN 67, Cr 23.0. Pertinent Medications Reviewed. Height 5 ft 1 in Weight 57.15 kg [place] Body Weight (kg) 50.90 BMI 23.8 Intake Prior to Admission Good Weight Status Appropriate Subjective/Other Information Pt needs dialysis 3Xweek, and uses colostomy bag. 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 Is patient on ventilator? No Is Patient Ambulatory and/or Out of Bed Yes REE-([place]-St. Jeor-ambulatory/OOB) [ 1598.844 NUTR.[id number]] Kcal/Kg value to use for calculation 27 Approximate Energy Requirements Using 1543 kcal/Kg Calculation Used for Recommendations Kcal/kg Additional Notes Protein: 0.8-1.0 g/Kg/day; 41- 51 g/day; 164-204 Kcal/day ( from IBW and Dialysis) Fluids: 1.0 ml/Kcal, or as per MD. Nutrition Intervention Change Diet Order: Continue Renal Diet Add Supplement/Snack (indicate name/kcal 2 X 8 fl oz Nepro with /protein ) Carbsteady Provides kCal: 850 Provides Protein (gm) 38 Goal #1 Maintain [place] energy/ protein balance during LOS Goal #2 Maintain body weight within +/ -3% of actual BW during LOS Goal #3 Achieve and maintain acceptable chemistry lab values during LOS Follow-Up By: 08/30/21 Additional Comments Continue monitoring intake of meals, BM, and tolerance of supplements.
[2021-08-29] MEDS: MIDODRINE 5 MG TAB PO SCH ×3 (08:00→16:00)
[2021-08-29] MEDS: CALCIUM ACETATE 667 MG CAP PO SCH ×3 (09:13→17:24)
[2021-08-29] MEDS: allopurinoL 100 MG TAB PO SCH (11:14)
[2021-08-29] MEDS: SODIUM BICARBONATE 650 MG TAB PO SCH ×4 (11:14→21:24)
[2021-08-29] MEDS: SERTRALINE 50 MG TAB PO SCH (11:14)
[2021-08-29] MEDS: PANTOPRAZOLE 20 MG TAB PO SCH ×2 (12:10→21:24)
--- NOTE | 2021-08-29 12:40 | Progress Note ---
Assessment and Plan Impression: * ESRD * hyperkalemia * hypotension * malfunctioning av access * HTN * anemia in esrd Plan: * prior to hospitalization, no dialysis in one week due to malfunctioning av access with hypotension * Appreciate IR, permacath placed 08/25 for access; s/p STAT HD 08/25 after CVC placement * Continue HD // per outpatient, due today. Agree with vascular- if AVG continues to work well, can remove CVC prior to discharge if not already done, can be discharged after HD today if hemodynamically stable * S/p fistulogram 08/27 with declot, successful * keep map >65, BPs soft but stable * Continue midodrine for low bp * daily lytes * renal diet * strict i/os Subjective Date of service: 08/29/21 Principal diagnosis: esrd Interval history: No issues this AM Objective - Exam Narrative Exam: General appearance: Present: no distress, non-Lao speaking - EENT Eyes: Present: PERRL ENT: clear oral mucosa, hearing decreased - Neck Neck: Present: supple, normal ROM - Respiratory Respiratory effort: normal Respiratory: bilateral: CTA - Cardiovascular Heart Sounds: Present: S1 & S2. Absent: rub, click - Extremities Extremities: pulses symmetrical, No edema Peripheral Pulses: within normal limits - Abdominal General gastrointestinal: Present: soft, non-tender, non-distended, normal bowel sounds Male genitourinary: Present: normal - Integumentary Integumentary: Present: clear, erythema - Musculoskeletal Musculoskeletal: generalized weakness - Psychiatric Psychiatric: no appropriate mood/affect, no intact judgment & insight - Neurologic Neurologic: CNII-XII intact, focal deficits, moves all extremities, gait normal - Vital Signs Vital signs: Vital Signs - 12hr 08/29/21 08/29/21 05:18 10:00 Temperature 97.8 F Pulse Rate 79 Respiratory 18 Rate Blood Pressure 89/42 O2 Sat by Pulse 100 97 Oximetry - Lab 08/27/21 07:40 08/27/21 07:40 Most recent lab results Calcium 7.7 mg/dL (8.4-10.2) L 08/27/21 07:40 Medications & Allergies - Medications Allergies/Adverse Reactions: Allergies No Known Allergies Allergy (Verified 03/17/19 12:18) Home Medications: Home Medications Medication Instructions Recorded Confirmed Last Taken Type Calcium Acetate [Phoslo] 667 mg PO TID 03/15/19 08/22/21 Unknown History Insulin Detemir [Levemir VIAL] 5 units SUB-Q QAM 03/15/19 08/22/21 Unknown History Omeprazole 20 mg PO BID 03/15/19 08/22/21 Unknown History Sertraline [Zoloft] 50 mg PO QDAY 03/15/19 08/22/21 Unknown History Sodium Bicarbonate 650 mg PO QID 03/15/19 08/22/21 Unknown History allopurinoL [Zyloprim] 100 mg PO QDAY 03/15/19 08/22/21 Unknown History megestroL [Megestrol] 10 ml PO QDAY 03/15/19 08/22/21 Unknown History Active Medications: Generic Name Dose Route Start Last Admin Trade Name Freq PRN Reason Stop Dose Admin Acetaminophen 650 mg 08/22/21 13:00 Acetaminophen 325 Mg Tab PO Q4H PRN Pain MILD(1-3)/Fever >100.5/NATHAN Albuterol 2.5 mg 08/22/21 12:15 Albuterol 2.5 Mg/3 Ml Nebu IH Q4HRT PRN Shortness Of Breath Allopurinol 100 mg 08/23/21 10:00 08/29/21 11:14 Allopurinol 100 Mg Tab PO 100 mg QDAY [facility] Administration Calcium Acetate 667 mg 08/23/21 08:30 08/29/21 12:10 Calcium Acetate 667 Mg Cap PO Not Given TIDWM [facility] Hydromorphone HCl 0.5 mg 08/22/21 13:00 Hydromorphone 1 Mg/1 Ml Inj IV Q23H PRN Pain , Severe (7-10) Sodium Chloride 100 mls @ 999 mls/hr 08/25/21 10:21 Nacl 0.9% IV HERNANDEZ PRN Hypotension Midodrine 10 mg 08/24/21 08:00 08/29/21 12:10 Midodrine 5 Mg Tab PO Not Given TID@0800,1200,1600 [facility] Ondansetron HCl 4 mg 08/22/21 12:15 08/25/21 13:06 Ondansetron 4 Mg/2 Ml Inj IV 4 mg Q8H PRN Administration Nausea And Vomiting Oxycodone/Acetaminophen 1 tab 08/22/21 13:00 08/27/21 22:20 Oxycodone /Acetaminophen 5-325mg Tab PO 1 tab Q16H PRN Administration Pain, Moderate (4-6) Pantoprazole Sodium 20 mg 08/22/21 22:00 08/29/21 12:10 Pantoprazole 20 Mg Tab PO Not Given BID [facility] Sertraline HCl 50 mg 08/23/21 10:00 08/29/21 11:14 Sertraline 50 Mg Tab PO 50 mg QDAY [facility] Administration Sodium Bicarbonate 650 mg 08/22/21 14:00 08/29/21 11:14 Sodium Bicarbonate 650 Mg Tab PO 650 mg QID [facility] Administration Sodium Chloride 10 ml 08/22/21 22:00 08/29/21 11:12 Sodium Chloride 0.9% 10 Ml Flush Syringe IV Not Given BID ALMA Sodium Chloride 10 ml 08/22/21 12:15 Sodium Chloride 0.9% 10 Ml Flush Syringe IV PRN PRN LINE FLUSH
--- NOTE | 2021-08-29 12:59 | Progress Note ---
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 In ED, his blood pressure was with a blood pressure of 88/31. ESRD. Hypotension Diabetes mellitus type 2. 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 Hyperkalemia History of gout. GERD. 08/23/2021. Hypotension has resolved with systolic blood pressure in the 150s this morning. Consider midodrine if patient has any more episodes. We will continue to monitor today. Anticipate discharge in a.m. if remains stable. Continue Accu-Cheks and SSRI. Continue hemodialysis per nephrology recommendations. 08/24/2021. Dr. Branch reports patient appears to have a functioning AV fistula. Resume hemodialysis per nephrology. Patient with hypotension last irene mariano and this morning. We will initiate midodrine. Follow-up stat BMP. 08/25/2021. Tunneled catheter placement per nephrology and vascular surgery. Continue midodrine for hypotension. Continue IV fluids per nephrology recommendations. We will give 60 of Kayexalate for hyperkalemia with potassium of 6.0. Consider insulin and glucose. 08/26/2021. Vas-Cath placed by IR yesterday. Hemodialysis per nephrology. Continue midodrine for hypotension. Hyperkalemia resolved. Check echocardiogram to assess systolic function. Also check TSH and random cortisol levels. 08/27/2021 Patient with ESRD on dialysis, hypotension. Patient with AV graft malfunction s/p angioplasty today by Vasc Surgeon. 08/28/2021 Patient with ESRD on hemodialysis. He was sent from dialysis center because of hypotension. He had av graft malfunction s/p angioplasty yesterday by vasc Surgeon. For hemodialysis tomorrow. Poss dc tomorrow after dialysis if graft works well. Vasc surgeon recommends removal of Vasc cath if av graft works well. Vasc surgeon and Nephrology to determine if ok for discharge. 09/29/2021. Patient is still hypotensive with blood pressure 89/42 and map of 57. Continue midodrine. His random cortisol level is normal. Will monitor post hemodialysis and if his blood pressure improved with MAP up to 65 tomorrow, will discharge him home. History Interval history: No events overnight. Still hypotension. Hospitalist Physical - Constitutional Vitals: Temp Pulse Resp BP Pulse Ox 97.8 F 79 18 89/42 97 08/29/21 05:18 08/29/21 05:18 08/29/21 05:18 08/29/21 05:18 08/29/21 10:00 General appearance: Present: no acute distress - EENT Eyes: Present: PERRL, EOM intact ENT: hearing intact - Neck Neck: Present: supple, normal ROM - Respiratory Respiratory effort: normal Respiratory: bilateral: CTA - Cardiovascular Rhythm: regular Heart Sounds: Present: S1 & S2 - Extremities Extremities: No edema - Abdominal General gastrointestinal: soft, non-tender, non-distended, normal bowel sounds - Integumentary Integumentary: Present: warm, dry - Additional findings Additional findings: Right hemiparesis with right upper extremity contracture. HEART Score - HEART Score Troponin: Troponin T 0.069 ng/mL (0.00-0.029) H 08/22/21 10:47 Results - Labs CBC & Chem 7: 08/27/21 07:40 08/27/21 07:40 Labs: Laboratory Last Values WBC 5.4 K/mm3 (4.5-11.0) 08/27/21 07:40 RBC 3.06 M/mm3 (3.65-5.03) L 08/27/21 07:40 Hgb 9.6 gm/dl (11.8-15.2) L 08/27/21 07:40 Hct 29.2 % (35.5-45.6) L 08/27/21 07:40 MCV 96 fl (84-94) H 08/27/21 07:40 MCH 31 pg (28-32) 08/27/21 07:40 MCHC 33 % (32-34) 08/27/21 07:40 RDW 15.6 % (13.2-15.2) H 08/27/21 07:40 Plt Count 96 K/mm3 (140-440) L 08/27/21 07:40 Lymph % (Auto) 15.9 % (13.4-35.0) 08/27/21 07:40 [place] % (Auto) 9.6 % (0.0-7.3) H 08/27/21 07:40 Eos % (Auto) 1.7 % (0.0-4.3) 08/27/21 07:40 Baso % (Auto) 0.4 % (0.0-1.8) 08/27/21 07:40 Lymph # (Auto) 0.9 K/mm3 (1.2-5.4) L 08/27/21 07:40 [place] # (Auto) 0.5 K/mm3 (0.0-0.8) 08/27/21 07:40 Eos # (Auto) 0.1 K/mm3 (0.0-0.4) 08/27/21 07:40 Baso # (Auto) 0.0 K/mm3 (0.0-0.1) 08/27/21 07:40 Seg Neutrophils % 72.4 % (40.0-70.0) H 08/27/21 07:40 Seg Neutrophils # 3.9 K/mm3 (1.8-7.7) 08/27/21 07:40 Sodium 137 mmol/L (137-145) 08/27/21 07:40 Potassium 4.7 mmol/L (3.6-5.0) 08/27/21 07:40 Chloride 98.5 mmol/L (98-107) 08/27/21 07:40 Carbon Dioxide 24 mmol/L (22-30) 08/27/21 07:40 Anion Gap 19 mmol/L 08/27/21 07:40 BUN 31 mg/dL (9-20) H 08/27/21 07:40 Creatinine 14.6 mg/dL (0.8-1.3) H 08/27/21 07:40 Estimated GFR 3 ml/min 08/27/21 07:40 BUN/Creatinine Ratio 2 % 08/27/21 07:40 Glucose 84 mg/dL (75-100) 08/27/21 07:40 Lactic Acid 1.40 mmol/L (0.7-2.0) 08/23/21 00:13 Calcium 7.7 mg/dL (8.4-10.2) L 08/27/21 07:40 Total Bilirubin 0.30 mg/dL (0.1-1.2) 08/22/21 10:47 AST 68 units/L (5-40) H 08/22/21 10:47 ALT 62 units/L (7-56) H 08/22/21 10:47 Alkaline Phosphatase 231 units/L (35-129) H 08/22/21 10:47 Troponin T 0.069 ng/mL (0.00-0.029) H 08/22/21 10:47 Total Protein 5.6 g/dL (6.3-8.2) L 08/22/21 10:47 Albumin 3.1 g/dL (3.9-5) L 08/22/21 10:47 Albumin/Globulin Ratio 1.2 % 08/22/21 10:47 Triglycerides 87 mg/dL (2-149) 08/22/21 10:47 Cholesterol 81 mg/dL (50-199) 08/22/21 10:47 LDL Cholesterol Direct 20 mg/dL (50-130) L 08/22/21 10:47 HDL Cholesterol 49 mg/dL (40-59) 08/22/21 10:47 Cholesterol/HDL Ratio 1.65 % 08/22/21 10:47 TSH 6.140 mlU/mL (0.270-4.200) H 08/26/21 23:46 Free T4 1.10 ng/dL (0.76-1.46) 08/27/21 Unknown Total Cortisol 12.7 mcg/dL () 08/26/21 23:46 Hepatitis A IgM Ab Non-reactive (NonReactive) 08/24/21 07:17 Hep Bs Antigen Nonreactive (Negative) 08/24/21 07:17 Hep B Core IgM Ab Non-reactive (NonReactive) 08/24/21 07:17 Hepatitis C Antibody Non-reactive (NonReactive) 08/24/21 07:17 [place]/IV: Voiding Method Condom Catheter Active Medications - Current Medications Current Medications: Generic Name Dose Route Start Last Admin Trade Name Freq PRN Reason Stop Dose Admin Acetaminophen 650 mg 08/22/21 13:00 Acetaminophen 325 Mg Tab PO Q4H PRN Pain MILD(1-3)/Fever >100.5/NATHAN Albuterol 2.5 mg 08/22/21 12:15 Albuterol 2.5 Mg/3 Ml Nebu IH Q4HRT PRN Shortness Of Breath Allopurinol 100 mg 08/23/21 10:00 08/29/21 11:14 Allopurinol 100 Mg Tab PO 100 mg QDAY [facility] Administration Calcium Acetate 667 mg 08/23/21 08:30 08/29/21 12:10 Calcium Acetate 667 Mg Cap PO Not Given TIDWM [facility] Hydromorphone HCl 0.5 mg 08/22/21 13:00 Hydromorphone 1 Mg/1 Ml Inj IV Q23H PRN Pain , Severe (7-10) Sodium Chloride 100 mls @ 999 mls/hr 08/25/21 10:21 Nacl 0.9% IV HERNANDEZ PRN Hypotension Midodrine 10 mg 08/24/21 08:00 08/29/21 12:10 Midodrine 5 Mg Tab PO Not Given TID@0800,1200,1600 [facility] Ondansetron HCl 4 mg 08/22/21 12:15 08/25/21 13:06 Ondansetron 4 Mg/2 Ml Inj IV 4 mg Q8H PRN Administration Nausea And Vomiting Oxycodone/Acetaminophen 1 tab 08/22/21 13:00 08/27/21 22:20 Oxycodone /Acetaminophen 5-325mg Tab PO 1 tab Q16H PRN Administration Pain, Moderate (4-6) Pantoprazole Sodium 20 mg 08/22/21 22:00 08/29/21 12:10 Pantoprazole 20 Mg Tab PO Not Given BID [facility] Sertraline HCl 50 mg 08/23/21 10:00 08/29/21 11:14 Sertraline 50 Mg Tab PO 50 mg QDAY [facility] Administration Sodium Bicarbonate 650 mg 08/22/21 14:00 08/29/21 11:14 Sodium Bicarbonate 650 Mg Tab PO 650 mg QID [facility] Administration Sodium Chloride 10 ml 08/22/21 22:00 08/29/21 11:12 Sodium Chloride 0.9% 10 Ml Flush Syringe IV Not Given BID [facility] Sodium Chloride 10 ml 08/22/21 12:15 Sodium Chloride 0.9% 10 Ml Flush Syringe IV PRN PRN LINE FLUSH Nutrition/Malnutrition Assess - Dietary Evaluation Nutrition/Malnutrition Findings: Nutrition Notes Start: 08/23/21 13:57 Freq: Status: Active Protocol: Document 08/23/21 13:57 BRITANY (Rec: 08/23/21 14:59 BRITANY [id number]) Nutrition Notes Need for Assessment generated from: MD Order Initial or Follow up Assessment Other Pertinent Diagnosis Transient hypotension, ESRD- Dialysis, CVA complicated by aphasia. Current Diet Renal Diet Labs/Tests 08/23: K 5.7, CO2 20, BUN 67, Cr 23.0. Pertinent Medications Reviewed. Height 5 ft 1 in Weight 57.15 kg [place] Body Weight (kg) 50.90 BMI 23.8 Intake Prior to Admission Good Weight Status Appropriate Subjective/Other Information Pt needs dialysis 3Xweek, and uses colostomy bag. 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 Is patient on ventilator? No Is Patient Ambulatory and/or Out of Bed Yes REE-([place]-ambulatory/OOB) [ 1598.844 [id number]] Kcal/Kg value to use for calculation 27 Approximate Energy Requirements Using 1543 kcal/Kg Calculation Used for Recommendations Kcal/kg Additional Notes Protein: 0.8-1.0 g/Kg/day; 41- 51 g/day; 164-204 Kcal/day ( from IBW and Dialysis) Fluids: 1.0 ml/Kcal, or as per MD. Nutrition Intervention Change Diet Order: Continue Renal Diet Add Supplement/Snack (indicate name/kcal 2 X 8 fl oz Nepro with /protein ) Carbsteady Provides kCal: 850 Provides Protein (gm) 38 Goal #1 Maintain [place] energy/ protein balance during LOS Goal #2 Maintain body weight within +/ -3% of actual BW during LOS Goal #3 Achieve and maintain acceptable chemistry lab values during LOS Follow-Up By: 08/30/21 Additional Comments Continue monitoring intake of meals, BM, and tolerance of supplements. - Attestation Statement I have reviewed and agreed w/ Malnutrition eval & tx plan: Yes
[2021-08-30] MEDS: MIDODRINE 5 MG TAB PO SCH ×3 (09:22→17:43)
[2021-08-30] MEDS: PANTOPRAZOLE 20 MG TAB PO SCH ×2 (09:22→23:37)
[2021-08-30] MEDS: SERTRALINE 50 MG TAB PO SCH (09:22)
[2021-08-30] MEDS: SODIUM BICARBONATE 650 MG TAB PO SCH ×4 (09:23→23:37)
[2021-08-30] MEDS: allopurinoL 100 MG TAB PO SCH (09:23)
[2021-08-30] MEDS: CALCIUM ACETATE 667 MG CAP PO SCH ×3 (09:23→17:43)
--- NOTE | 2021-08-30 09:54 | Progress Note ---
Assessment and Plan Impression: * ESRD * hyperkalemia * hypotension * malfunctioning av access * HTN * anemia in esrd Plan: * prior to hospitalization, no dialysis in one week due to malfunctioning av access with hypotension * Appreciate IR, permacath placed 08/25 for access; s/p STAT HD 08/25 after CVC placement * Continue HD // per outpatient, no issues noted yesterday with AVG * S/p fistulogram 08/27 with declot, successful * keep map >65, BPs soft but stable * Continue midodrine for low bp; could consider trial of Florinef to support BP but risk of hyperkalemia, volume overload possible * daily lytes * renal diet * strict i/os Subjective Date of service: 08/30/21 Principal diagnosis: esrd Interval history: No issues this AM, had HD yesterday and tolerated well per report with stable BP, AVF worked well Objective - Exam Narrative Exam: General appearance: Present: no distress, non-Maori speaking - EENT Eyes: Present: PERRL ENT: clear oral mucosa, hearing decreased - Neck Neck: Present: supple, normal ROM - Respiratory Respiratory effort: normal Respiratory: bilateral: CTA - Cardiovascular Heart Sounds: Present: S1 & S2. Absent: rub, click - Extremities Extremities: pulses symmetrical, No edema Peripheral Pulses: within normal limits - Abdominal General gastrointestinal: Present: soft, non-tender, non-distended, normal bowel sounds Male genitourinary: Present: normal - Integumentary Integumentary: Present: clear, erythema - Musculoskeletal Musculoskeletal: generalized weakness - Psychiatric Psychiatric: no appropriate mood/affect, no intact judgment & insight - Neurologic Neurologic: CNII-XII intact, focal deficits, moves all extremities, gait normal - Vital Signs Vital signs: Vital Signs - 12hr 08/29/21 08/29/21 08/29/21 22:00 22:32 22:54 Temperature 99.0 F Pulse Rate 106 H Respiratory 18 Rate Blood Pressure 70/35 71/32 O2 Sat by Pulse 97 95 Oximetry 08/30/21 05:12 Temperature 98.4 F Pulse Rate 100 H Respiratory 18 Rate Blood Pressure 83/40 O2 Sat by Pulse 94 Oximetry - Lab 08/27/21 07:40 08/27/21 07:40 Most recent lab results Calcium 7.7 mg/dL (8.4-10.2) L 08/27/21 07:40 Medications & Allergies - Medications Allergies/Adverse Reactions: Allergies No Known Allergies Allergy (Verified 03/17/19 12:18) Home Medications: Home Medications Medication Instructions Recorded Confirmed Last Taken Type Calcium Acetate [Phoslo] 667 mg PO TID 03/15/19 08/22/21 Unknown History Insulin Detemir [Levemir VIAL] 5 units SUB-Q QAM 03/15/19 08/22/21 Unknown History Omeprazole 20 mg PO BID 03/15/19 08/22/21 Unknown History Sertraline [Zoloft] 50 mg PO QDAY 03/15/19 08/22/21 Unknown History Sodium Bicarbonate 650 mg PO QID 03/15/19 08/22/21 Unknown History allopurinoL [Zyloprim] 100 mg PO QDAY 03/15/19 08/22/21 Unknown History megestroL [Megestrol] 10 ml PO QDAY 03/15/19 08/22/21 Unknown History Active Medications: Generic Name Dose Route Start Last Admin Trade Name Freq PRN Reason Stop Dose Admin Acetaminophen 650 mg 08/22/21 13:00 Acetaminophen 325 Mg Tab PO Q4H PRN Pain MILD(1-3)/Fever >100.5/NATHAN Albuterol 2.5 mg 08/22/21 12:15 Albuterol 2.5 Mg/3 Ml Nebu IH Q4HRT PRN Shortness Of Breath Allopurinol 100 mg 08/23/21 10:00 08/30/21 09:23 Allopurinol 100 Mg Tab PO 100 mg QDAY [facility] Administration Calcium Acetate 667 mg 08/23/21 08:30 08/30/21 09:23 Calcium Acetate 667 Mg Cap PO 667 mg TIDWM [facility] Administration Hydromorphone HCl 0.5 mg 08/22/21 13:00 Hydromorphone 1 Mg/1 Ml Inj IV Q23H PRN Pain , Severe (7-10) Sodium Chloride 100 mls @ 999 mls/hr 08/25/21 10:21 Nacl 0.9% IV HERNANDEZ PRN Hypotension Midodrine 10 mg 08/24/21 08:00 08/30/21 09:22 Midodrine 5 Mg Tab PO 10 mg TID@0800,1200,1600 [facility] Administration Ondansetron HCl 4 mg 08/22/21 12:15 08/25/21 13:06 Ondansetron 4 Mg/2 Ml Inj IV 4 mg Q8H PRN Administration Nausea And Vomiting Oxycodone/Acetaminophen 1 tab 08/22/21 13:00 08/27/21 22:20 Oxycodone /Acetaminophen 5-325mg Tab PO 1 tab Q16H PRN Administration Pain, Moderate (4-6) Pantoprazole Sodium 20 mg 08/22/21 22:00 08/30/21 09:22 Pantoprazole 20 Mg Tab PO 20 mg BID [facility] Administration Sertraline HCl 50 mg 08/23/21 10:00 08/30/21 09:22 Sertraline 50 Mg Tab PO 50 mg QDAY [facility] Administration Sodium Bicarbonate 650 mg 08/22/21 14:00 08/30/21 09:23 Sodium Bicarbonate 650 Mg Tab PO 650 mg QID [facility] Administration Sodium Chloride 10 ml 08/22/21 22:00 08/29/21 21:25 Sodium Chloride 0.9% 10 Ml Flush Syringe IV 10 ml BID [facility] Administration Sodium Chloride 10 ml 08/22/21 12:15 Sodium Chloride 0.9% 10 Ml Flush Syringe IV PRN PRN LINE FLUSH
--- NOTE | 2021-08-30 13:44 | Progress Note ---
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 In ED, his blood pressure was with a blood pressure of 88/31. ESRD. Hypotension Tachycardia post hemodialysis. Diabetes mellitus type 2. 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 Hyperkalemia, resolved. History of gout. GERD. 08/23/2021. Hypotension has resolved with systolic blood pressure in the 150s this morning. Consider midodrine if patient has any more episodes. We will continue to monitor today. Anticipate discharge in a.m. if remains stable. Continue Accu-Cheks and SSRI. Continue hemodialysis per nephrology recommendations. 08/24/2021. Dr. Branch reports patient appears to have a functioning AV fistula. Resume hemodialysis per nephrology. Patient with hypotension last evening and this morning. We will initiate midodrine. Follow-up stat BMP. 08/25/2021. Tunneled catheter placement per nephrology and vascular surgery. Continue midodrine for hypotension. Continue IV fluids per nephrology recommendations. We will give 60 of Kayexalate for hyperkalemia with potassium of 6.0. Consider insulin and glucose. 08/26/2021. Vas-Cath placed by IR yesterday. Hemodialysis per nephrology. Continue midodrine for hypotension. Hyperkalemia resolved. Check echocardiogram to assess systolic function. Also check TSH and random cortisol levels. 08/27/2021 Patient with ESRD on dialysis, hypotension. Patient with AV graft mal function s/p angioplasty today by Vasc Surgeon. 08/28/2021 Patient with ESRD on hemodialysis. He was sent from dialysis center because of hypotension. He had av graft malfunction s/p angioplasty yesterday by vasc Surgeon. For hemodialysis tomorrow. Poss dc tomorrow after dialysis if graft works well. Vasc surgeon recommends removal of Vasc cath if av graft works well. Vasc surgeon and Nephrology to determine if ok for discharge. 09/29/2021. Patient is still hypotensive with blood pressure 89/42 and map of 57. Continue midodrine. His random cortisol level is normal. Will monitor post hemodialysis and if his blood pressure improved with MAP up to 65 tomorrow, will discharge him home. 08/30/2021. Patient is still hypotensive with map of 54. He had sinus tachycardia with heart rate of 131 post hemodialysis yesterday. About 500 cc of fluid was removed during hemodialysis. Nephrology is on board and I suspect patient may need to have less or no fluid removed hemodialysis. Does not appear overloaded and no edema at this time. Still on midodrine. Nephrology is considering possibly starting patient on Florinef but noted there is a risk of edema and hyperkalemia. Plan is to discharge home when blood pressure improves with MAP of up to 65. History Interval history: No complaints from the patient He is still hypotensive. Had tachycardia with heart rate of 131 post hemodialysis yesterday. Hospitalist Physical - Constitutional Vitals: Temp Pulse Resp BP Pulse Ox 98.4 F 100 H 18 83/40 94 08/30/21 05:12 08/30/21 05:12 08/30/21 05:12 08/30/21 05:12 08/30/21 05:12 General appearance: Present: no acute distress - EENT Eyes: Present: PERRL, EOM intact ENT: hearing intact - Neck Neck: Present: supple, normal ROM - Respiratory Respiratory effort: normal - Cardiovascular Rhythm: regular Heart Sounds: Present: S1 & S2 - Extremities Extremities: No edema - Abdominal General gastrointestinal: soft, non-tender, non-distended, normal bowel sounds - Integumentary Integumentary: Present: warm, dry HEART Score - HEART Score Troponin: Troponin T 0.069 ng/mL (0.00-0.029) H 08/22/21 10:47 Results - Labs CBC & Chem 7: 08/27/21 07:40 08/27/21 07:40 Labs: Laboratory Last Values WBC 5.4 K/mm3 (4.5-11.0) 08/27/21 07:40 RBC 3.06 M/mm3 (3.65-5.03) L 08/27/21 07:40 Hgb 9.6 gm/dl (11.8-15.2) L 08/27/21 07:40 Hct 29.2 % (35.5-45.6) L 08/27/21 07:40 MCV 96 fl (84-94) H 08/27/21 07:40 MCH 31 pg (28-32) 08/27/21 07:40 MCHC 33 % (32-34) 08/27/21 07:40 RDW 15.6 % (13.2-15.2) H 08/27/21 07:40 Plt Count 96 K/mm3 (140-440) L 08/27/21 07:40 Lymph % (Auto) 15.9 % (13.4-35.0) 08/27/21 07:40 [place] % (Auto) 9.6 % (0.0-7.3) H 08/27/21 07:40 Eos % (Auto) 1.7 % (0.0-4.3) 08/27/21 07:40 Baso % (Auto) 0.4 % (0.0-1.8) 08/27/21 07:40 Lymph # (Auto) 0.9 K/mm3 (1.2-5.4) L 08/27/21 07:40 [place] # (Auto) 0.5 K/mm3 (0.0-0.8) 08/27/21 07:40 Eos # (Auto) 0.1 K/mm3 (0.0-0.4) 08/27/21 07:40 Baso # (Auto) 0.0 K/mm3 (0.0-0.1) 08/27/21 07:40 Seg Neutrophils % 72.4 % (40.0-70.0) H 08/27/21 07:40 Seg Neutrophils # 3.9 K/mm3 (1.8-7.7) 08/27/21 07:40 Sodium 137 mmol/L (137-145) 08/27/21 07:40 Potassium 4.7 mmol/L (3.6-5.0) 08/27/21 07:40 Chloride 98.5 mmol/L (98-107) 08/27/21 07:40 Carbon Dioxide 24 mmol/L (22-30) 08/27/21 07:40 Anion Gap 19 mmol/L 08/27/21 07:40 BUN 31 mg/dL (9-20) H 08/27/21 07:40 Creatinine 14.6 mg/dL (0.8-1.3) H 08/27/21 07:40 Estimated GFR 3 ml/min 08/27/21 07:40 BUN/Creatinine Ratio 2 % 08/27/21 07:40 Glucose 84 mg/dL (75-100) 08/27/21 07:40 Lactic Acid 1.40 mmol/L (0.7-2.0) 08/23/21 00:13 Calcium 7.7 mg/dL (8.4-10.2) L 08/27/21 07:40 Total Bilirubin 0.30 mg/dL (0.1-1.2) 08/22/21 10:47 AST 68 units/L (5-40) H 08/22/21 10:47 ALT 62 units/L (7-56) H 08/22/21 10:47 Alkaline Phosphatase 231 units/L (35-129) H 08/22/21 10:47 Troponin T 0.069 ng/mL (0.00-0.029) H 08/22/21 10:47 Total Protein 5.6 g/dL (6.3-8.2) L 08/22/21 10:47 Albumin 3.1 g/dL (3.9-5) L 08/22/21 10:47 Albumin/Globulin Ratio 1.2 % 08/22/21 10:47 Triglycerides 87 mg/dL (2-149) 08/22/21 10:47 Cholesterol 81 mg/dL (50-199) 08/22/21 10:47 LDL Cholesterol Direct 20 mg/dL (50-130) L 08/22/21 10:47 HDL Cholesterol 49 mg/dL (40-59) 08/22/21 10:47 Cholesterol/HDL Ratio 1.65 % 08/22/21 10:47 TSH 6.140 mlU/mL (0.270-4.200) H 08/26/21 23:46 Free T4 1.10 ng/dL (0.76-1.46) 08/27/21 Unknown Total Cortisol 12.7 mcg/dL () 08/26/21 23:46 Hepatitis A IgM Ab Non-reactive (NonReactive) 08/24/21 07:17 Hep Bs Antigen Nonreactive (Negative) 08/24/21 07:17 Hep B Core IgM Ab Non-reactive (NonReactive) 08/24/21 07:17 Hepatitis C Antibody Non-reactive (NonReactive) 08/24/21 07:17 Reynaga/IV: Voiding Method Condom Catheter Active Medications - Current Medications Current Medications: Generic Name Dose Route Start Last Admin Trade Name Freq PRN Reason Stop Dose Admin Acetaminophen 650 mg 08/22/21 13:00 Acetaminophen 325 Mg Tab PO Q4H PRN Pain MILD(1-3)/Fever >100.5/NATHAN Albuterol 2.5 mg 08/22/21 12:15 Albuterol 2.5 Mg/3 Ml Nebu IH Q4HRT PRN Shortness Of Breath Allopurinol 100 mg 08/23/21 10:00 08/30/21 09:23 Allopurinol 100 Mg Tab PO 100 mg QDAY ALMA Administration Calcium Acetate 667 mg 08/23/21 08:30 08/30/21 09:23 Calcium Acetate 667 Mg Cap PO 667 mg TIDWM ALMA Administration Hydromorphone HCl 0.5 mg 08/22/21 13:00 Hydromorphone 1 Mg/1 Ml Inj IV Q23H PRN Pain , Severe (7-10) Sodium Chloride 100 mls @ 999 mls/hr 08/25/21 10:21 Nacl 0.9% IV HERNANDEZ PRN Hypotension Midodrine 10 mg 08/24/21 08:00 08/30/21 09:22 Midodrine 5 Mg Tab PO 10 mg TID@0800,1200,1600 ALMA Administration Ondansetron HCl 4 mg 08/22/21 12:15 08/25/21 13:06 Ondansetron 4 Mg/2 Ml Inj IV 4 mg Q8H PRN Administration Nausea And Vomiting Oxycodone/Acetaminophen 1 tab 08/22/21 13:00 08/27/21 22:20 Oxycodone /Acetaminophen 5-325mg Tab PO 1 tab Q16H PRN Administration Pain, Moderate (4-6) Pantoprazole Sodium 20 mg 08/22/21 22:00 08/30/21 09:22 Pantoprazole 20 Mg Tab PO 20 mg BID ALMA Administration Sertraline HCl 50 mg 08/23/21 10:00 08/30/21 09:22 Sertraline 50 Mg Tab PO 50 mg QDAY ALMA Administration Sodium Bicarbonate 650 mg 08/22/21 14:00 08/30/21 09:23 Sodium Bicarbonate 650 Mg Tab PO 650 mg QID ALMA Administration Sodium Chloride 10 ml 08/22/21 22:00 08/29/21 21:25 Sodium Chloride 0.9% 10 Ml Flush Syringe IV 10 ml BID ALMA Administration Sodium Chloride 10 ml 08/22/21 12:15 Sodium Chloride 0.9% 10 Ml Flush Syringe IV PRN PRN LINE FLUSH Nutrition/Malnutrition Assess - Dietary Evaluation Nutrition/Malnutrition Findings: Nutrition Notes Start: 08/23/21 13:57 Freq: Status: Active Protocol: Document 08/23/21 13:57 BRITANY (Rec: 08/23/21 14:59 BRITANY [id number]) Nutrition Notes Need for Assessment generated from: MD Order Initial or Follow up Assessment Other Pertinent Diagnosis Transient hypotension, ESRD- Dialysis, CVA complicated by aphasia. Current Diet Renal Diet Labs/Tests 08/23: K 5.7, CO2 20, BUN 67, Cr 23.0. Pertinent Medications Reviewed. Height 5 ft 1 in Weight 57.15 kg [place] Body Weight (kg) 50.90 BMI 23.8 Intake Prior to Admission Good Weight Status Appropriate Subjective/Other Information Pt needs dialysis 3Xweek, and uses colostomy bag. 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 Is patient on ventilator? No Is Patient Ambulatory and/or Out of Bed Yes REE-([facility]-ambulatory/OOB) [ 1598.844 NUTR.[id number]] Kcal/Kg value to use for calculation 27 Approximate Energy Requirements Using 1543 kcal/Kg Calculation Used for Recommendations Kcal/kg Additional Notes Protein: 0.8-1.0 g/Kg/day; 41- 51 g/day; 164-204 Kcal/day ( from IBW and Dialysis) Fluids: 1.0 ml/Kcal, or as per MD. Nutrition Intervention Change Diet Order: Continue Renal Diet Add Supplement/Snack (indicate name/kcal 2 X 8 fl oz Nepro with /protein ) Carbsteady Provides kCal: 850 Provides Protein (gm) 38 Goal #1 Maintain [place] energy/ protein balance during LOS Goal #2 Maintain body weight within +/ -3% of actual BW during LOS Goal #3 Achieve and maintain acceptable chemistry lab values during LOS Follow-Up By: 08/30/21 Additional Comments Continue monitoring intake of meals, BM, and tolerance of supplements.
[2021-08-31] MEDS: MIDODRINE 5 MG TAB PO SCH ×3 (08:09→17:04)
[2021-08-31] MEDS: CALCIUM ACETATE 667 MG CAP PO SCH ×3 (08:09→17:04)
--- NOTE | 2021-08-31 09:12 | Progress Note ---
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 In ED, his blood pressure was with a blood pressure of 88/31. ESRD. Hypotension Tachycardia post hemodialysis. Diabetes mellitus type 2. 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 Hyperkalemia, resolved. History of gout. GERD. 08/23/2021. Hypotension has resolved with systolic blood pressure in the 150s this morning. Consider midodrine if patient has any more episodes. We will continue to monitor today. Anticipate discharge in a.m. if remains stable. Continue Accu-Cheks and SSRI. Continue hemodialysis per nephrology recommendations. 08/24/2021. Dr. Branch reports patient appears to have a functioning AV fistula. Resume hemodialysis per nephrology. Patient with hypotension last evening and this morning. We will initiate midodrine. Follow-up stat BMP. 08/25/2021. Tunneled catheter placement per nephrology and vascular surgery. Continue midodrine for hypotension. Continue IV fluids per nephrology recommendations. We will give 60 of Kayexalate for hyperkalemia with potassium of 6.0. Consider insulin and glucose. 08/26/2021. Vas-Cath placed by IR yesterday. Hemodialysis per nephrology. Continue midodrine for hypotension. Hyperkalemia resolved. Check echocardiogram to assess systolic function. Also check TSH and random cortisol levels. 08/27/2021 Patient with ESRD on dialysis, hypotension. Patient with AV graft mal function s/p angioplasty today by Vasc Surgeon. 08/28/2021 Patient with ESRD on hemodialysis. He was sent from dialysis center because of hypotension. He had av graft malfunction s/p angioplasty yesterday by vasc Surgeon. For hemodialysis tomorrow. Poss dc tomorrow after dialysis if graft works well. Vasc surgeon recommends removal of Vasc cath if av graft works well. Vasc surgeon and Nephrology to determine if ok for discharge. 09/29/2021. Patient is still hypotensive with blood pressure 89/42 and map of 57. Continue midodrine. His random cortisol level is normal. Will monitor post hemodialysis and if his blood pressure improved with MAP up to 65 tomorrow, will discharge him home. 08/30/2021. Patient is still hypotensive with map of 54. He had sinus tachycardia with heart rate of 131 post hemodialysis yesterday. About 500 cc of fluid was removed during hemodialysis. Nephrology is on board and I suspect patient may need to have less or no fluid removed hemodialysis. Does not appear overloaded and no edema at this time. Still on midodrine. Nephrology is considering possibly starting patient on Florinef but noted there is a risk of edema and hyperkalemia. Plan is to discharge home when blood pressure improves with MAP of up to 65. 08/31/2021 Patient still has low BP. On Midodrine. To dc home when MAP>65% History Interval history: Patient with hypotension, av graft malfunction s/p angioplasty Low blood pressure Hospitalist Physical - Physical exam Narrative exam: Gen: Not in acute distress, lying in bed HEENT: Normocephalic, atraumatic Neck: supple Lungs: Clear to auscultation bilaterally, no wheeze Heart: S1 and S2 reg, no murmurs, rubs or gallop Abd:soft, non-tender, non distended, normal bowel sounds Ext: left arm av graft, no cyanosis Neuro: Awake, alert - Constitutional Vitals: Temp Pulse Resp BP Pulse Ox 98.5 F 86 18 88/42 99 08/31/21 04:32 08/31/21 04:32 08/31/21 04:32 08/31/21 04:32 08/31/21 04:32 General appearance: Present: no acute distress HEART Score - HEART Score Troponin: Troponin T 0.069 ng/mL (0.00-0.029) H 08/22/21 10:47 Results - Labs CBC & Chem 7: 08/27/21 07:40 08/27/21 07:40 Labs: Laboratory Last Values WBC 5.4 K/mm3 (4.5-11.0) 08/27/21 07:40 RBC 3.06 M/mm3 (3.65-5.03) L 08/27/21 07:40 Hgb 9.6 gm/dl (11.8-15.2) L 08/27/21 07:40 Hct 29.2 % (35.5-45.6) L 08/27/21 07:40 MCV 96 fl (84-94) H 08/27/21 07:40 MCH 31 pg (28-32) 08/27/21 07:40 MCHC 33 % (32-34) 08/27/21 07:40 RDW 15.6 % (13.2-15.2) H 08/27/21 07:40 Plt Count 96 K/mm3 (140-440) L 08/27/21 07:40 Lymph % (Auto) 15.9 % (13.4-35.0) 08/27/21 07:40 [place] % (Auto) 9.6 % (0.0-7.3) H 08/27/21 07:40 Eos % (Auto) 1.7 % (0.0-4.3) 08/27/21 07:40 Baso % (Auto) 0.4 % (0.0-1.8) 08/27/21 07:40 Lymph # (Auto) 0.9 K/mm3 (1.2-5.4) L 08/27/21 07:40 [place] # (Auto) 0.5 K/mm3 (0.0-0.8) 08/27/21 07:40 Eos # (Auto) 0.1 K/mm3 (0.0-0.4) 08/27/21 07:40 Baso # (Auto) 0.0 K/mm3 (0.0-0.1) 08/27/21 07:40 Seg Neutrophils % 72.4 % (40.0-70.0) H 08/27/21 07:40 Seg Neutrophils # 3.9 K/mm3 (1.8-7.7) 08/27/21 07:40 Sodium 137 mmol/L (137-145) 08/27/21 07:40 Potassium 4.7 mmol/L (3.6-5.0) 08/27/21 07:40 Chloride 98.5 mmol/L (98-107) 08/27/21 07:40 Carbon Dioxide 24 mmol/L (22-30) 08/27/21 07:40 Anion Gap 19 mmol/L 08/27/21 07:40 BUN 31 mg/dL (9-20) H 08/27/21 07:40 Creatinine 14.6 mg/dL (0.8-1.3) H 08/27/21 07:40 Estimated GFR 3 ml/min 08/27/21 07:40 BUN/Creatinine Ratio 2 % 08/27/21 07:40 Glucose 84 mg/dL (75-100) 08/27/21 07:40 Lactic Acid 1.40 mmol/L (0.7-2.0) 08/23/21 00:13 Calcium 7.7 mg/dL (8.4-10.2) L 08/27/21 07:40 Total Bilirubin 0.30 mg/dL (0.1-1.2) 08/22/21 10:47 AST 68 units/L (5-40) H 08/22/21 10:47 ALT 62 units/L (7-56) H 08/22/21 10:47 Alkaline Phosphatase 231 units/L (35-129) H 08/22/21 10:47 Troponin T 0.069 ng/mL (0.00-0.029) H 08/22/21 10:47 Total Protein 5.6 g/dL (6.3-8.2) L 08/22/21 10:47 Albumin 3.1 g/dL (3.9-5) L 08/22/21 10:47 Albumin/Globulin Ratio 1.2 % 08/22/21 10:47 Triglycerides 87 mg/dL (2-149) 08/22/21 10:47 Cholesterol 81 mg/dL (50-199) 08/22/21 10:47 LDL Cholesterol Direct 20 mg/dL (50-130) L 08/22/21 10:47 HDL Cholesterol 49 mg/dL (40-59) 08/22/21 10:47 Cholesterol/HDL Ratio 1.65 % 08/22/21 10:47 TSH 6.140 mlU/mL (0.270-4.200) H 08/26/21 23:46 Free T4 1.10 ng/dL (0.76-1.46) 08/27/21 Unknown Total Cortisol 12.7 mcg/dL () 08/26/21 23:46 Hepatitis A IgM Ab Non-reactive (NonReactive) 08/24/21 07:17 Hep Bs Antigen Nonreactive (Negative) 08/24/21 07:17 Hep B Core IgM Ab Non-reactive (NonReactive) 08/24/21 07:17 Hepatitis C Antibody Non-reactive (NonReactive) 08/24/21 07:17 Reynaga/IV: Voiding Method Urinal Active Medications - Current Medications Current Medications: Generic Name Dose Route Start Last Admin Trade Name Freq PRN Reason Stop Dose Admin Acetaminophen 650 mg 08/22/21 13:00 Acetaminophen 325 Mg Tab PO Q4H PRN Pain MILD(1-3)/Fever >100.5/NATHAN Albuterol 2.5 mg 08/22/21 12:15 Albuterol 2.5 Mg/3 Ml Nebu IH Q4HRT PRN Shortness Of Breath Allopurinol 100 mg 08/23/21 10:00 08/30/21 09:23 Allopurinol 100 Mg Tab PO 100 mg QDAY ALMA Administration Calcium Acetate 667 mg 08/23/21 08:30 08/31/21 08:09 Calcium Acetate 667 Mg Cap PO 667 mg TIDWM ALMA Administration Hydromorphone HCl 0.5 mg 08/22/21 13:00 Hydromorphone 1 Mg/1 Ml Inj IV Q23H PRN Pain , Severe (7-10) Sodium Chloride 100 mls @ 999 mls/hr 08/25/21 10:21 Nacl 0.9% IV HERNANDEZ PRN Hypotension Midodrine 10 mg 08/24/21 08:00 08/31/21 08:09 Midodrine 5 Mg Tab PO 10 mg TID@0800,1200,1600 ALMA Administration Ondansetron HCl 4 mg 08/22/21 12:15 08/25/21 13:06 Ondansetron 4 Mg/2 Ml Inj IV 4 mg Q8H PRN Administration Nausea And Vomiting Oxycodone/Acetaminophen 1 tab 08/22/21 13:00 08/27/21 22:20 Oxycodone /Acetaminophen 5-325mg Tab PO 1 tab Q16H PRN Administration Pain, Moderate (4-6) Pantoprazole Sodium 20 mg 08/22/21 22:00 08/30/21 23:37 Pantoprazole 20 Mg Tab PO 20 mg BID ALMA Administration Sertraline HCl 50 mg 08/23/21 10:00 08/30/21 09:22 Sertraline 50 Mg Tab PO 50 mg QDAY ALMA Administration Sodium Bicarbonate 650 mg 08/22/21 14:00 08/30/21 23:37 Sodium Bicarbonate 650 Mg Tab PO 650 mg QID ALMA Administration Sodium Chloride 10 ml 08/22/21 22:00 08/30/21 23:38 Sodium Chloride 0.9% 10 Ml Flush Syringe IV 10 ml BID ALMA Administration Sodium Chloride 10 ml 08/22/21 12:15 Sodium Chloride 0.9% 10 Ml Flush Syringe IV PRN PRN LINE FLUSH Nutrition/Malnutrition Assess - Dietary Evaluation Nutrition/Malnutrition Findings: Nutrition Notes Start: 08/23/21 13:57 Freq: Status: Active Protocol: Document 08/30/21 16:32 BRITANY (Rec: 08/30/21 16:52 BRITANY [id number]) Nutrition Notes Need for Assessment generated from: MD Order Initial or Follow up Assessment Other Pertinent Diagnosis Transient hypotension, ESRD- Dialysis, CVA complicated by aphasia. Current Diet Renal Diet (since B 08/28) Labs/Tests 08/27: BUN 31, Cr 14.6. Pertinent Medications 08/30: Unremarkable. Height 5 ft 1 in Weight 46.9 kg [place] Body Weight (kg) 50.90 BMI 19.5 Intake Prior to Admission Good Weight Status Appropriate Subjective/Other Information Pt needs dialysis 3Xweek, and uses colostomy bag. Percent of energy/protein needs met: Renal Diet provides for energy /protein needs (2072 Kcal/77 g ) during LOS. Burn Absent Trauma Absent GI Symptoms None Food Allergy No Skin Integrity/Comment Integumentary; clear, warm, dry. Current % PO Good (75-100%) Minimum of two criteria No physical signs of malnutrition #1 Nutrition Diagnosis No nutrition diagnosis at this time Comments: Pt intake of meals has been at +/-75% of total portion served, good appetite has been recovered. Diagnosis Progress(for reassessment Improved documentation) Is patient on ventilator? No Is Patient Ambulatory and/or Out of Bed Yes REE-([facility]-ambulatory/OOB) [ 1465.594 NUTR.MSJOOB] Kcal/Kg value to use for calculation 27 Approximate Energy Requirements Using 1266 kcal/Kg Calculation Used for Recommendations Kcal/kg Additional Notes Protein: 0.8-1.0 g/Kg/day; 41- 51 g/day; 164-204 Kcal/day ( from IBW and Dialysis) Fluids: 1.0 ml/Kcal, or as per MD. Nutrition Intervention Change Diet Order: Continue Renal Diet Goal #1 Maintain [place] energy/ protein balance during LOS. Goal #2 Maintain body weight within +/ -3% of actual BWt during LOS. Goal #3 Achieve and maintain acceptable chemistry lab values during LOS. Follow-Up By: 09/05/21 Additional Comments Continue monitoring acceptyance of food, % PO intake of meals, hydration, and BM.
[2021-08-31] MEDS: SODIUM BICARBONATE 650 MG TAB PO SCH ×4 (10:00→21:51)
--- NOTE | 2021-08-31 10:07 | Progress Note ---
Assessment and Plan Impression: * ESRD * hyperkalemia * hypotension * malfunctioning av access * HTN * anemia in esrd Plan: * prior to hospitalization, no dialysis in one week due to malfunctioning av access with hypotension * Appreciate IR, permacath placed 08/25 for access; s/p STAT HD 08/25 after CVC placement * Continue HD // per outpatient, no issues noted 08/27 and 08/29 with AVG * S/p fistulogram 08/27 with declot, successful * keep map >65, BPs soft but stable * Continue midodrine for low bp; could consider trial of Florinef to support BP but risk of hyperkalemia, volume overload possible * Minimal to no UF with HD as he is without volume overload * daily lytes * renal diet * strict i/os Subjective Date of service: 08/31/21 Principal diagnosis: esrd Interval history: No issues this AM, resting in bed Objective - Exam Narrative Exam: General appearance: Present: no distress, non-Kazakh speaking - EENT Eyes: Present: PERRL ENT: clear oral mucosa, hearing decreased - Neck Neck: Present: supple, normal ROM - Respiratory Respiratory effort: normal Respiratory: bilateral: CTA - Cardiovascular Heart Sounds: Present: S1 & S2. Absent: rub, click - Extremities Extremities: pulses symmetrical, No edema Peripheral Pulses: within normal limits - Abdominal General gastrointestinal: Present: soft, non-tender, non-distended, normal bowel sounds Male genitourinary: Present: normal - Integumentary Integumentary: Present: clear, erythema - Musculoskeletal Musculoskeletal: generalized weakness - Psychiatric Psychiatric: no appropriate mood/affect, no intact judgment & insight - Neurologic Neurologic: CNII-XII intact, focal deficits, moves all extremities, gait normal - Vital Signs Vital signs: Vital Signs - 12hr 08/30/21 08/31/21 23:36 04:32 Temperature 98.5 F Pulse Rate 84 86 Respiratory 18 Rate Blood Pressure 88/42 Blood Pressure 92/47 [Left] O2 Sat by Pulse 99 Oximetry - Lab 08/27/21 07:40 08/27/21 07:40 Most recent lab results Calcium 7.7 mg/dL (8.4-10.2) L 08/27/21 07:40 Medications & Allergies - Medications Allergies/Adverse Reactions: Allergies No Known Allergies Allergy (Verified 03/17/19 12:18) Home Medications: Home Medications Medication Instructions Recorded Confirmed Last Taken Type Calcium Acetate [Phoslo] 667 mg PO TID 03/15/19 08/22/21 Unknown History Insulin Detemir [Levemir VIAL] 5 units SUB-Q QAM 03/15/19 08/22/21 Unknown History Omeprazole 20 mg PO BID 03/15/19 08/22/21 Unknown History Sertraline [Zoloft] 50 mg PO QDAY 03/15/19 08/22/21 Unknown History Sodium Bicarbonate 650 mg PO QID 03/15/19 08/22/21 Unknown History allopurinoL [Zyloprim] 100 mg PO QDAY 03/15/19 08/22/21 Unknown History megestroL [Megestrol] 10 ml PO QDAY 03/15/19 08/22/21 Unknown History Active Medications: Generic Name Dose Route Start Last Admin Trade Name Freq PRN Reason Stop Dose Admin Acetaminophen 650 mg 08/22/21 13:00 Acetaminophen 325 Mg Tab PO Q4H PRN Pain MILD(1-3)/Fever >100.5/NATHAN Albuterol 2.5 mg 08/22/21 12:15 Albuterol 2.5 Mg/3 Ml Nebu IH Q4HRT PRN Shortness Of Breath Allopurinol 100 mg 08/23/21 10:00 08/30/21 09:23 Allopurinol 100 Mg Tab PO 100 mg QDAY ALMA Administration Calcium Acetate 667 mg 08/23/21 08:30 08/31/21 08:09 Calcium Acetate 667 Mg Cap PO 667 mg TIDWM ALMA Administration Hydromorphone HCl 0.5 mg 08/22/21 13:00 Hydromorphone 1 Mg/1 Ml Inj IV Q23H PRN Pain , Severe (7-10) Sodium Chloride 100 mls @ 999 mls/hr 08/25/21 10:21 Nacl 0.9% IV HERNANDEZ PRN Hypotension Midodrine 10 mg 08/24/21 08:00 08/31/21 08:09 Midodrine 5 Mg Tab PO 10 mg TID@0800,1200,1600 ALMA Administration Ondansetron HCl 4 mg 08/22/21 12:15 08/25/21 13:06 Ondansetron 4 Mg/2 Ml Inj IV 4 mg Q8H PRN Administration Nausea And Vomiting Oxycodone/Acetaminophen 1 tab 08/22/21 13:00 08/27/21 22:20 Oxycodone /Acetaminophen 5-325mg Tab PO 1 tab Q16H PRN Administration Pain, Moderate (4-6) Pantoprazole Sodium 20 mg 08/22/21 22:00 08/30/21 23:37 Pantoprazole 20 Mg Tab PO 20 mg BID ALMA Administration Sertraline HCl 50 mg 08/23/21 10:00 08/30/21 09:22 Sertraline 50 Mg Tab PO 50 mg QDAY ALMA Administration Sodium Bicarbonate 650 mg 08/22/21 14:00 08/30/21 23:37 Sodium Bicarbonate 650 Mg Tab PO 650 mg QID ALMA Administration Sodium Chloride 10 ml 08/22/21 22:00 08/30/21 23:38 Sodium Chloride 0.9% 10 Ml Flush Syringe IV 10 ml BID ALMA Administration Sodium Chloride 10 ml 08/22/21 12:15 Sodium Chloride 0.9% 10 Ml Flush Syringe IV PRN PRN LINE FLUSH
[2021-08-31] MEDS: PANTOPRAZOLE 20 MG TAB PO SCH ×2 (14:00→21:51)
[2021-08-31] MEDS: allopurinoL 100 MG TAB PO SCH (14:00)
[2021-08-31] MEDS: SERTRALINE 50 MG TAB PO SCH (14:00)
[2021-09-01] MEDS: MIDODRINE 5 MG TAB PO SCH ×3 (08:57→17:25)
[2021-09-01] MEDS: CALCIUM ACETATE 667 MG CAP PO SCH ×3 (08:57→17:25)
[2021-09-01] MEDS: SERTRALINE 50 MG TAB PO SCH (09:01)
[2021-09-01] MEDS: allopurinoL 100 MG TAB PO SCH (09:01)
[2021-09-01] MEDS: PANTOPRAZOLE 20 MG TAB PO SCH ×2 (09:01→21:16)
[2021-09-01] MEDS: SODIUM BICARBONATE 650 MG TAB PO SCH ×4 (09:01→21:16)
--- NOTE | 2021-09-01 09:57 | Progress Note ---
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 In ED, his blood pressure was with a blood pressure of 88/31. ESRD. Hypotension Tachycardia post hemodialysis. Diabetes mellitus type 2. 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 Hyperkalemia, resolved. History of gout. GERD. 08/23/2021. Hypotension has resolved with systolic blood pressure in the 150s this morning. Consider midodrine if patient has any more episodes. We will continue to monitor today. Anticipate discharge in a.m. if remains stable. Continue Accu-Cheks and SSRI. Continue hemodialysis per nephrology recommendations. 08/24/2021. Dr. Branch reports patient appears to have a functioning AV fistula. Resume hemodialysis per nephrology. Patient with hypotension last evening and this morning. We will initiate midodrine. Follow-up stat BMP. 08/25/2021. Tunneled catheter placement per nephrology and vascular surgery. Continue midodrine for hypotension. Continue IV fluids per nephrology recommendations. We will give 60 of Kayexalate for hyperkalemia with potassium of 6.0. Consider insulin and glucose. 08/26/2021. Vas-Cath placed by IR yesterday. Hemodialysis per nephrology. Continue midodrine for hypotension. Hyperkalemia resolved. Check echocardiogram to assess systolic function. Also check TSH and random cortisol levels. 08/27/2021 Patient with ESRD on dialysis, hypotension. Patient with AV graft mal function s/p angioplasty today by Vasc Surgeon. 08/28/2021 Patient with ESRD on hemodialysis. He was sent from dialysis center because of hypotension. He had av graft malfunction s/p angioplasty yesterday by vasc Surgeon. For hemodialysis tomorrow. Poss dc tomorrow after dialysis if graft works well. Vasc surgeon recommends removal of Vasc cath if av graft works well. Vasc surgeon and Nephrology to determine if ok for discharge. 09/29/2021. Patient is still hypotensive with blood pressure 89/42 and map of 57. Continue midodrine. His random cortisol level is normal. Will monitor post hemodialysis and if his blood pressure improved with MAP up to 65 tomorrow, will discharge him home. 08/30/2021. Patient is still hypotensive with map of 54. He had sinus tachycardia with heart rate of 131 post hemodialysis yesterday. About 500 cc of fluid was removed during hemodialysis. Nephrology is on board and I suspect patient may need to have less or no fluid removed hemodialysis. Does not appear overloaded and no edema at this time. Still on midodrine. Nephrology is considering possibly starting patient on Florinef but noted there is a risk of edema and hyperkalemia. Plan is to discharge home when blood pressure improves with MAP of up to 65. 08/31/2021 Patient still has low BP. On Midodrine. To dc home when MAP>65% 09/01/2021 Patient with ESRD on dialysis. He had av graft malfunction s/p angioplasty by Vas Surgeon. He has been having hypotension, still has low BP. On Midodrine. To dc home when MAP>65% History Interval history: Patient with hypotension, av graft malfunction s/p angioplasty Still having low blood pressure Hospitalist Physical - Physical exam Narrative exam: Gen: Not in acute distress, lying in bed HEENT: Normocephalic, atraumatic Neck: supple, noJVD Lungs: Clear to auscultation bilaterally, no wheeze Heart: S1 and S2 reg, no murmurs, rubs or gallop Abd:soft, non-tender, non distended, normal bowel sounds Ext: left arm av graft, no cyanosis Neuro: Awake, alert - Constitutional Vitals: Temp Pulse Resp BP Pulse Ox 97.9 F 83 16 86/50 99 08/31/21 21:49 08/31/21 21:49 08/31/21 21:49 08/31/21 21:49 08/31/21 22:00 General appearance: Present: no acute distress HEART Score - HEART Score Troponin: Troponin T 0.069 ng/mL (0.00-0.029) H 08/22/21 10:47 Results - Labs CBC & Chem 7: 08/27/21 07:40 08/27/21 07:40 Labs: Laboratory Last Values WBC 5.4 K/mm3 (4.5-11.0) 08/27/21 07:40 RBC 3.06 M/mm3 (3.65-5.03) L 08/27/21 07:40 Hgb 9.6 gm/dl (11.8-15.2) L 08/27/21 07:40 Hct 29.2 % (35.5-45.6) L 08/27/21 07:40 MCV 96 fl (84-94) H 08/27/21 07:40 MCH 31 pg (28-32) 08/27/21 07:40 MCHC 33 % (32-34) 08/27/21 07:40 RDW 15.6 % (13.2-15.2) H 08/27/21 07:40 Plt Count 96 K/mm3 (140-440) L 08/27/21 07:40 Lymph % (Auto) 15.9 % (13.4-35.0) 08/27/21 07:40 Mcleod % (Auto) 9.6 % (0.0-7.3) H 08/27/21 07:40 Eos % (Auto) 1.7 % (0.0-4.3) 08/27/21 07:40 Baso % (Auto) 0.4 % (0.0-1.8) 08/27/21 07:40 Lymph # (Auto) 0.9 K/mm3 (1.2-5.4) L 08/27/21 07:40 Mcleod # (Auto) 0.5 K/mm3 (0.0-0.8) 08/27/21 07:40 Eos # (Auto) 0.1 K/mm3 (0.0-0.4) 08/27/21 07:40 Baso # (Auto) 0.0 K/mm3 (0.0-0.1) 08/27/21 07:40 Seg Neutrophils % 72.4 % (40.0-70.0) H 08/27/21 07:40 Seg Neutrophils # 3.9 K/mm3 (1.8-7.7) 08/27/21 07:40 Sodium 137 mmol/L (137-145) 08/27/21 07:40 Potassium 4.7 mmol/L (3.6-5.0) 08/27/21 07:40 Chloride 98.5 mmol/L (98-107) 08/27/21 07:40 Carbon Dioxide 24 mmol/L (22-30) 08/27/21 07:40 Anion Gap 19 mmol/L 08/27/21 07:40 BUN 31 mg/dL (9-20) H 08/27/21 07:40 Creatinine 14.6 mg/dL (0.8-1.3) H 08/27/21 07:40 Estimated GFR 3 ml/min 08/27/21 07:40 BUN/Creatinine Ratio 2 % 08/27/21 07:40 Glucose 84 mg/dL (75-100) 08/27/21 07:40 Lactic Acid 1.40 mmol/L (0.7-2.0) 08/23/21 00:13 Calcium 7.7 mg/dL (8.4-10.2) L 08/27/21 07:40 Total Bilirubin 0.30 mg/dL (0.1-1.2) 08/22/21 10:47 AST 68 units/L (5-40) H 08/22/21 10:47 ALT 62 units/L (7-56) H 08/22/21 10:47 Alkaline Phosphatase 231 units/L (35-129) H 08/22/21 10:47 Troponin T 0.069 ng/mL (0.00-0.029) H 08/22/21 10:47 Total Protein 5.6 g/dL (6.3-8.2) L 08/22/21 10:47 Albumin 3.1 g/dL (3.9-5) L 08/22/21 10:47 Albumin/Globulin Ratio 1.2 % 08/22/21 10:47 Triglycerides 87 mg/dL (2-149) 08/22/21 10:47 Cholesterol 81 mg/dL (50-199) 08/22/21 10:47 LDL Cholesterol Direct 20 mg/dL (50-130) L 08/22/21 10:47 HDL Cholesterol 49 mg/dL (40-59) 08/22/21 10:47 Cholesterol/HDL Ratio 1.65 % 08/22/21 10:47 TSH 6.140 mlU/mL (0.270-4.200) H 08/26/21 23:46 Free T4 1.10 ng/dL (0.76-1.46) 08/27/21 Unknown Total Cortisol 12.7 mcg/dL () 08/26/21 23:46 Hepatitis A IgM Ab Non-reactive (NonReactive) 08/24/21 07:17 Hep Bs Antigen Nonreactive (Negative) 08/24/21 07:17 Hep B Core IgM Ab Non-reactive (NonReactive) 08/24/21 07:17 Hepatitis C Antibody Non-reactive (NonReactive) 08/24/21 07:17 [place]/IV: Voiding Method Urinal Active Medications - Current Medications Current Medications: Generic Name Dose Route Start Last Admin Trade Name Freq PRN Reason Stop Dose Admin Acetaminophen 650 mg 08/22/21 13:00 Acetaminophen 325 Mg Tab PO Q4H PRN Pain MILD(1-3)/Fever >100.5/NATHAN Albuterol 2.5 mg 08/22/21 12:15 Albuterol 2.5 Mg/3 Ml Nebu IH Q4HRT PRN Shortness Of Breath Allopurinol 100 mg 08/23/21 10:00 09/01/21 09:01 Allopurinol 100 Mg Tab PO 100 mg QDAY ALMA Administration Calcium Acetate 667 mg 08/23/21 08:30 09/01/21 08:57 Calcium Acetate 667 Mg Cap PO 667 mg TIDWM ALMA Administration Hydromorphone HCl 0.5 mg 08/22/21 13:00 Hydromorphone 1 Mg/1 Ml Inj IV Q23H PRN Pain , Severe (7-10) Sodium Chloride 100 mls @ 999 mls/hr 08/25/21 10:21 Nacl 0.9% IV HERNANDEZ PRN Hypotension Midodrine 10 mg 08/24/21 08:00 09/01/21 08:57 Midodrine 5 Mg Tab PO 10 mg TID@0800,1200,1600 ALMA Administration Ondansetron HCl 4 mg 08/22/21 12:15 08/25/21 13:06 Ondansetron 4 Mg/2 Ml Inj IV 4 mg Q8H PRN Administration Nausea And Vomiting Oxycodone/Acetaminophen 1 tab 08/22/21 13:00 08/27/21 22:20 Oxycodone /Acetaminophen 5-325mg Tab PO 1 tab Q16H PRN Administration Pain, Moderate (4-6) Pantoprazole Sodium 20 mg 08/22/21 22:00 09/01/21 09:01 Pantoprazole 20 Mg Tab PO 20 mg BID ALMA Administration Sertraline HCl 50 mg 08/23/21 10:00 09/01/21 09:01 Sertraline 50 Mg Tab PO 50 mg QDAY ALMA Administration Sodium Bicarbonate 650 mg 08/22/21 14:00 09/01/21 09:01 Sodium Bicarbonate 650 Mg Tab PO 650 mg QID ALMA Administration Sodium Chloride 10 ml 08/22/21 22:00 09/01/21 09:01 Sodium Chloride 0.9% 10 Ml Flush Syringe IV 10 ml BID ALMA Administration Sodium Chloride 10 ml 08/22/21 12:15 Sodium Chloride 0.9% 10 Ml Flush Syringe IV PRN PRN LINE FLUSH Nutrition/Malnutrition Assess - Dietary Evaluation Nutrition/Malnutrition Findings: Nutrition Notes Start: 08/23/21 13:57 Freq: Status: Active Protocol: Document 08/30/21 16:32 BRITANY (Rec: 08/30/21 16:52 BRITANY [id number]) Nutrition Notes Need for Assessment generated from: MD Order Initial or Follow up Assessment Other Pertinent Diagnosis Transient hypotension, ESRD- Dialysis, 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 Current Diet Renal Diet (since B 08/28) Labs/Tests 08/27: BUN 31, Cr 14.6. Pertinent Medications 08/30: Unremarkable. Height 5 ft 1 in Weight 46.9 kg [place] Body Weight (kg) 50.90 BMI 19.5 Intake Prior to Admission Good Weight Status Appropriate Subjective/Other Information Pt needs dialysis 3Xweek, and uses colostomy bag. Percent of energy/protein needs met: Renal Diet provides for energy /protein needs (2072 Kcal/77 g ) during LOS. Burn Absent Trauma Absent GI Symptoms None Food Allergy No Skin Integrity/Comment Integumentary; clear, warm, dry. Current % PO Good (75-100%) Minimum of two criteria No physical signs of malnutrition #1 Nutrition Diagnosis No nutrition diagnosis at this time Comments: Pt intake of meals has been at +/-75% of total portion served, good appetite has been recovered. Diagnosis Progress(for reassessment Improved documentation) Is patient on ventilator? No Is Patient Ambulatory and/or Out of Bed Yes REE-([place]-St. Jeor-ambulatory/OOB) [ 1465.594 [id number]] Kcal/Kg value to use for calculation 27 Approximate Energy Requirements Using 1266 kcal/Kg Calculation Used for Recommendations Kcal/kg Additional Notes Protein: 0.8-1.0 g/Kg/day; 41- 51 g/day; 164-204 Kcal/day ( from IBW and Dialysis) Fluids: 1.0 ml/Kcal, or as per MD. Nutrition Intervention Change Diet Order: Continue Renal Diet Goal #1 Maintain [place] energy/ protein balance during LOS. Goal #2 Maintain body weight within +/ -3% of actual BWt during LOS. Goal #3 Achieve and maintain acceptable chemistry lab values during LOS. Follow-Up By: 09/05/21 Additional Comments Continue monitoring acceptyance of food, % PO intake of meals, hydration, and BM.
--- NOTE | 2021-09-01 10:01 | Progress Note ---
Assessment and Plan Impression: * ESRD * hyperkalemia * hypotension * malfunctioning av access * HTN * anemia in esrd Plan: * prior to hospitalization, no dialysis in one week due to malfunctioning av access with hypotension * Appreciate IR, permacath placed 08/25 for access; s/p STAT HD 08/25 after CVC placement * Continue HD // per outpatient, no issues noted 08/27 and 08/29 with AVG * S/p fistulogram 08/27 with declot, successful * keep map >65, BPs soft but stable * Continue midodrine for low bp; will provide trial of Florinef but risk of volume overload noted * Minimal to no UF with HD as he is without volume overload * daily lytes * renal diet * strict i/os Subjective Date of service: 09/01/21 Principal diagnosis: esrd Interval history: No issues this AM, resting in bed Objective - Exam Narrative Exam: General appearance: Present: no distress, non-Mauritian speaking - EENT Eyes: Present: PERRL ENT: clear oral mucosa, hearing decreased - Neck Neck: Present: supple, normal ROM - Respiratory Respiratory effort: normal Respiratory: bilateral: CTA - Cardiovascular Heart Sounds: Present: S1 & S2. Absent: rub, click - Extremities Extremities: pulses symmetrical, No edema Peripheral Pulses: within normal limits - Abdominal General gastrointestinal: Present: soft, non-tender, non-distended, normal bowel sounds Male genitourinary: Present: normal - Integumentary Integumentary: Present: clear, erythema - Musculoskeletal Musculoskeletal: generalized weakness - Psychiatric Psychiatric: no appropriate mood/affect, no intact judgment & insight - Neurologic Neurologic: CNII-XII intact, focal deficits, moves all extremities, gait normal - Lab 08/27/21 07:40 08/27/21 07:40 Most recent lab results Calcium 7.7 mg/dL (8.4-10.2) L 08/27/21 07:40 Medications & Allergies - Medications Allergies/Adverse Reactions: Allergies No Known Allergies Allergy (Verified 03/17/19 12:18) Home Medications: Home Medications Medication Instructions Recorded Confirmed Last Taken Type Calcium Acetate [Phoslo] 667 mg PO TID 03/15/19 08/22/21 Unknown History Insulin Detemir [Levemir VIAL] 5 units SUB-Q QAM 03/15/19 08/22/21 Unknown History Omeprazole 20 mg PO BID 03/15/19 08/22/21 Unknown History Sertraline [Zoloft] 50 mg PO QDAY 03/15/19 08/22/21 Unknown History Sodium Bicarbonate 650 mg PO QID 03/15/19 08/22/21 Unknown History allopurinoL [Zyloprim] 100 mg PO QDAY 03/15/19 08/22/21 Unknown History megestroL [Megestrol] 10 ml PO QDAY 03/15/19 08/22/21 Unknown History Active Medications: Generic Name Dose Route Start Last Admin Trade Name Freq PRN Reason Stop Dose Admin Acetaminophen 650 mg 08/22/21 13:00 Acetaminophen 325 Mg Tab PO Q4H PRN Pain MILD(1-3)/Fever >100.5/NATHAN Albuterol 2.5 mg 08/22/21 12:15 Albuterol 2.5 Mg/3 Ml Nebu IH Q4HRT PRN Shortness Of Breath Allopurinol 100 mg 08/23/21 10:00 09/01/21 09:01 Allopurinol 100 Mg Tab PO 100 mg QDAY ALAM Administration Calcium Acetate 667 mg 08/23/21 08:30 09/01/21 08:57 Calcium Acetate 667 Mg Cap PO 667 mg TIDWM ALMA Administration Hydromorphone HCl 0.5 mg 08/22/21 13:00 Hydromorphone 1 Mg/1 Ml Inj IV Q23H PRN Pain , Severe (7-10) Sodium Chloride 100 mls @ 999 mls/hr 08/25/21 10:21 Nacl 0.9% IV HERNANDEZ PRN Hypotension Midodrine 10 mg 08/24/21 08:00 09/01/21 08:57 Midodrine 5 Mg Tab PO 10 mg TID@0800,1200,1600 ALMA Administration Ondansetron HCl 4 mg 08/22/21 12:15 08/25/21 13:06 Ondansetron 4 Mg/2 Ml Inj IV 4 mg Q8H PRN Administration Nausea And Vomiting Oxycodone/Acetaminophen 1 tab 08/22/21 13:00 08/27/21 22:20 Oxycodone /Acetaminophen 5-325mg Tab PO 1 tab Q16H PRN Administration Pain, Moderate (4-6) Pantoprazole Sodium 20 mg 08/22/21 22:00 09/01/21 09:01 Pantoprazole 20 Mg Tab PO 20 mg BID ALMA Administration Sertraline HCl 50 mg 08/23/21 10:00 09/01/21 09:01 Sertraline 50 Mg Tab PO 50 mg QDAY ALMA Administration Sodium Bicarbonate 650 mg 08/22/21 14:00 09/01/21 09:01 Sodium Bicarbonate 650 Mg Tab PO 650 mg QID ALMA Administration Sodium Chloride 10 ml 08/22/21 22:00 09/01/21 09:01 Sodium Chloride 0.9% 10 Ml Flush Syringe IV 10 ml BID ALMA Administration Sodium Chloride 10 ml 08/22/21 12:15 Sodium Chloride 0.9% 10 Ml Flush Syringe IV PRN PRN LINE FLUSH
--- NOTE | 2021-09-02 08:59 | Progress Note ---
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 In ED, his blood pressure was with a blood pressure of 88/31. ESRD. Hypotension Tachycardia post hemodialysis. Diabetes mellitus type 2. 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 Hyperkalemia, resolved. History of gout. GERD. 08/23/2021. Hypotension has resolved with systolic blood pressure in the 150s this morning. Consider midodrine if patient has any more episodes. We will continue to monitor today. Anticipate discharge in a.m. if remains stable. Continue Accu-Cheks and SSRI. Continue hemodialysis per nephrology recommendations. 08/24/2021. Dr. Branch reports patient appears to have a functioning AV fistula. Resume hemodialysis per nephrology. Patient with hypotension last evening and this morning. We will initiate midodrine. Follow-up stat BMP. 08/25/2021. Tunneled catheter placement per nephrology and vascular surgery. Continue midodrine for hypotension. Continue IV fluids per nephrology recommendations. We will give 60 of Kayexalate for hyperkalemia with potassium of 6.0. Consider insulin and glucose. 08/26/2021. Vas-Cath placed by IR yesterday. Hemodialysis per nephrology. Continue midodrine for hypotension. Hyperkalemia resolved. Check echocardiogram to assess systolic function. Also check TSH and random cortisol levels. 08/27/2021 Patient with ESRD on dialysis, hypotension. Patient with AV graft mal function s/p angioplasty today by Vasc Surgeon. 08/28/2021 Patient with ESRD on hemodialysis. He was sent from dialysis center because of hypotension. He had av graft malfunction s/p angioplasty yesterday by vasc Surgeon. For hemodialysis tomorrow. Poss dc tomorrow after dialysis if graft works well. Vasc surgeon recommends removal of Vasc cath if av graft works well. Vasc surgeon and Nephrology to determine if ok for discharge. 09/29/2021. Patient is still hypotensive with blood pressure 89/42 and map of 57. Continue midodrine. His random cortisol level is normal. Will monitor post hemodialysis and if his blood pressure improved with MAP up to 65 tomorrow, will discharge him home. 08/30/2021. Patient is still hypotensive with map of 54. He had sinus tachycardia with heart rate of 131 post hemodialysis yesterday. About 500 cc of fluid was removed during hemodialysis. Nephrology is on board and I suspect patient may need to have less or no fluid removed hemodialysis. Does not appear overloaded and no edema at this time. Still on midodrine. Nephrology is considering possibly starting patient on Florinef but noted there is a risk of edema and hyperkalemia. Plan is to discharge home when blood pressure improves with MAP of up to 65. 08/31/2021 Patient still has low BP. On Midodrine. To dc home when MAP>65% 09/01/2021 Patient with ESRD on dialysis. He had av graft malfunction s/p angioplasty by Vasc Surgeon. He has been having hypotension, still has low BP. On Midodrine. To dc home when MAP>65% 09/02/21 Patient with ESRD on hemodialysis. He was initially sent from dialysis center because of hypotension. He had av graft malfunction s/p angioplasty done by vasc Surgeon. He has been hypotensive, was started on Midodrine. To discharge home when MAP>65 History Interval history: Patient with hypotension, av graft malfunction s/p angioplasty Still having low blood pressure Hospitalist Physical - Physical exam Narrative exam: Gen: Not in acute distress, lying in bed HEENT: Normocephalic, atraumatic Neck: supple, noJVD Lungs: Clear to auscultation bilaterally, no wheeze Heart: S1 and S2 reg, no murmurs, rubs or gallop Abd:soft, non-tender, non distended, normal bowel sounds Ext: left arm av graft, no cyanosis Neuro: Awake, alert - Constitutional Vitals: Temp Pulse Resp BP Pulse Ox 97.9 F 75 16 82/47 90 09/02/21 04:48 09/02/21 04:48 09/02/21 04:48 09/02/21 04:48 09/02/21 04:48 General appearance: Present: no acute distress HEART Score - HEART Score Troponin: Troponin T 0.069 ng/mL (0.00-0.029) H 08/22/21 10:47 Results - Labs CBC & Chem 7: 08/27/21 07:40 08/27/21 07:40 Labs: Laboratory Last Values WBC 5.4 K/mm3 (4.5-11.0) 08/27/21 07:40 RBC 3.06 M/mm3 (3.65-5.03) L 08/27/21 07:40 Hgb 9.6 gm/dl (11.8-15.2) L 08/27/21 07:40 Hct 29.2 % (35.5-45.6) L 08/27/21 07:40 MCV 96 fl (84-94) H 08/27/21 07:40 MCH 31 pg (28-32) 08/27/21 07:40 MCHC 33 % (32-34) 08/27/21 07:40 RDW 15.6 % (13.2-15.2) H 08/27/21 07:40 Plt Count 96 K/mm3 (140-440) L 08/27/21 07:40 Lymph % (Auto) 15.9 % (13.4-35.0) 08/27/21 07:40 [place] % (Auto) 9.6 % (0.0-7.3) H 08/27/21 07:40 Eos % (Auto) 1.7 % (0.0-4.3) 08/27/21 07:40 Baso % (Auto) 0.4 % (0.0-1.8) 08/27/21 07:40 Lymph # (Auto) 0.9 K/mm3 (1.2-5.4) L 08/27/21 07:40 [place] # (Auto) 0.5 K/mm3 (0.0-0.8) 08/27/21 07:40 Eos # (Auto) 0.1 K/mm3 (0.0-0.4) 08/27/21 07:40 Baso # (Auto) 0.0 K/mm3 (0.0-0.1) 08/27/21 07:40 Seg Neutrophils % 72.4 % (40.0-70.0) H 08/27/21 07:40 Seg Neutrophils # 3.9 K/mm3 (1.8-7.7) 08/27/21 07:40 Sodium 137 mmol/L (137-145) 08/27/21 07:40 Potassium 4.7 mmol/L (3.6-5.0) 08/27/21 07:40 Chloride 98.5 mmol/L (98-107) 08/27/21 07:40 Carbon Dioxide 24 mmol/L (22-30) 08/27/21 07:40 Anion Gap 19 mmol/L 08/27/21 07:40 BUN 31 mg/dL (9-20) H 08/27/21 07:40 Creatinine 14.6 mg/dL (0.8-1.3) H 08/27/21 07:40 Estimated GFR 3 ml/min 08/27/21 07:40 BUN/Creatinine Ratio 2 % 08/27/21 07:40 Glucose 84 mg/dL (75-100) 08/27/21 07:40 Lactic Acid 1.40 mmol/L (0.7-2.0) 08/23/21 00:13 Calcium 7.7 mg/dL (8.4-10.2) L 08/27/21 07:40 Total Bilirubin 0.30 mg/dL (0.1-1.2) 08/22/21 10:47 AST 68 units/L (5-40) H 08/22/21 10:47 ALT 62 units/L (7-56) H 08/22/21 10:47 Alkaline Phosphatase 231 units/L (35-129) H 08/22/21 10:47 Troponin T 0.069 ng/mL (0.00-0.029) H 08/22/21 10:47 Total Protein 5.6 g/dL (6.3-8.2) L 08/22/21 10:47 Albumin 3.1 g/dL (3.9-5) L 08/22/21 10:47 Albumin/Globulin Ratio 1.2 % 08/22/21 10:47 Triglycerides 87 mg/dL (2-149) 08/22/21 10:47 Cholesterol 81 mg/dL (50-199) 08/22/21 10:47 LDL Cholesterol Direct 20 mg/dL (50-130) L 08/22/21 10:47 HDL Cholesterol 49 mg/dL (40-59) 08/22/21 10:47 Cholesterol/HDL Ratio 1.65 % 08/22/21 10:47 TSH 6.140 mlU/mL (0.270-4.200) H 08/26/21 23:46 Free T4 1.10 ng/dL (0.76-1.46) 08/27/21 Unknown Total Cortisol 12.7 mcg/dL () 08/26/21 23:46 Hepatitis A IgM Ab Non-reactive (NonReactive) 08/24/21 07:17 Hep Bs Antigen Nonreactive (Negative) 08/24/21 07:17 Hep B Core IgM Ab Non-reactive (NonReactive) 08/24/21 07:17 Hepatitis C Antibody Non-reactive (NonReactive) 08/24/21 07:17 [place]/IV: Voiding Method Urinal Active Medications - Current Medications Current Medications: Generic Name Dose Route Start Last Admin Trade Name Freq PRN Reason Stop Dose Admin Acetaminophen 650 mg 08/22/21 13:00 Acetaminophen 325 Mg Tab PO Q4H PRN Pain MILD(1-3)/Fever >100.5/NATHAN Albuterol 2.5 mg 08/22/21 12:15 Albuterol 2.5 Mg/3 Ml Nebu IH Q4HRT PRN Shortness Of Breath Allopurinol 100 mg 08/23/21 10:00 09/01/21 09:01 Allopurinol 100 Mg Tab PO 100 mg QDAY ALMA Administration Calcium Acetate 667 mg 08/23/21 08:30 09/01/21 17:25 Calcium Acetate 667 Mg Cap PO 667 mg TIDWM ALMA Administration Fludrocortisone Acetate 0.1 mg 09/02/21 10:00 Fludrocortisone 0.1 Mg Tab PO QDAY ALMA Hydromorphone HCl 0.5 mg 08/22/21 13:00 Hydromorphone 1 Mg/1 Ml Inj IV Q23H PRN Pain , Severe (7-10) Sodium Chloride 100 mls @ 999 mls/hr 08/25/21 10:21 Nacl 0.9% IV HERNANDEZ PRN Hypotension Midodrine 10 mg 08/24/21 08:00 09/01/21 17:25 Midodrine 5 Mg Tab PO 10 mg TID@0800,1200,1600 ALMA Administration Ondansetron HCl 4 mg 08/22/21 12:15 08/25/21 13:06 Ondansetron 4 Mg/2 Ml Inj IV 4 mg Q8H PRN Administration Nausea And Vomiting Oxycodone/Acetaminophen 1 tab 08/22/21 13:00 08/27/21 22:20 Oxycodone /Acetaminophen 5-325mg Tab PO 1 tab Q16H PRN Administration Pain, Moderate (4-6) Pantoprazole Sodium 20 mg 08/22/21 22:00 09/01/21 21:16 Pantoprazole 20 Mg Tab PO 20 mg BID ALMA Administration Sertraline HCl 50 mg 08/23/21 10:00 09/01/21 09:01 Sertraline 50 Mg Tab PO 50 mg QDAY ALMA Administration Sodium Bicarbonate 650 mg 08/22/21 14:00 09/01/21 21:16 Sodium Bicarbonate 650 Mg Tab PO 650 mg QID ALMA Administration Sodium Chloride 10 ml 08/22/21 22:00 09/01/21 21:16 Sodium Chloride 0.9% 10 Ml Flush Syringe IV 10 ml BID ALMA Administration Sodium Chloride 10 ml 08/22/21 12:15 Sodium Chloride 0.9% 10 Ml Flush Syringe IV PRN PRN LINE FLUSH Nutrition/Malnutrition Assess - Dietary Evaluation Nutrition/Malnutrition Findings: Nutrition Notes Start: 08/23/21 13:57 Freq: Status: Active Protocol: Document 08/30/21 16:32 BRITANY (Rec: 08/30/21 16:52 BRITANY [id number]) Nutrition Notes Need for Assessment generated from: MD Order Initial or Follow up Assessment Other Pertinent Diagnosis Transient hypotension, ESRD- Dialysis, CVA complicated by aphasia. Current Diet Renal Diet (since B 08/28) Labs/Tests 08/27: BUN 31, Cr 14.6. Pertinent Medications 08/30: Unremarkable. Height 5 ft 1 in Weight 46.9 kg [place] Body Weight (kg) 50.90 BMI 19.5 Intake Prior to Admission Good Weight Status Appropriate Subjective/Other Information Pt needs dialysis 3Xweek, and uses colostomy bag. Percent of energy/protein needs met: Renal Diet provides for energy /protein needs (2072 Kcal/77 g ) during LOS. Burn Absent Trauma Absent GI Symptoms None Food Allergy No Skin Integrity/Comment Integumentary; clear, warm, dry. Current % PO Good (75-100%) Minimum of two criteria No physical signs of malnutrition #1 Nutrition Diagnosis No nutrition diagnosis at this time Comments: Pt intake of meals has been at +/-75% of total portion served, good appetite has been recovered. Diagnosis Progress(for reassessment Improved documentation) Is patient on ventilator? No Is Patient Ambulatory and/or Out of Bed Yes REE-([facility]-ambulatory/OOB) [ 1465.594 [id number]] Kcal/Kg value to use for calculation 27 Approximate Energy Requirements Using 1266 kcal/Kg Calculation Used for Recommendations Kcal/kg Additional Notes Protein: 0.8-1.0 g/Kg/day; 41- 51 g/day; 164-204 Kcal/day ( from IBW and Dialysis) Fluids: 1.0 ml/Kcal, or as per MD. Nutrition Intervention Change Diet Order: Continue Renal Diet Goal #1 Maintain [place] energy/ protein balance during LOS. Goal #2 Maintain body weight within +/ -3% of actual BWt during LOS. Goal #3 Achieve and maintain acceptable chemistry lab values during LOS. Follow-Up By: 09/05/21 Additional Comments Continue monitoring acceptyance of food, % PO intake of meals, hydration, and BM.
--- NOTE | 2021-09-02 10:25 | Progress Note ---
Assessment and Plan Impression: * ESRD * hyperkalemia * hypotension * malfunctioning av access * HTN * anemia in esrd Plan: * prior to hospitalization, no dialysis in one week due to malfunctioning av access with hypotension * Appreciate IR, permacath placed 08/25 for access; s/p STAT HD 08/25 after CVC placement * Continue HD // per outpatient, no issues noted 08/27 and 08/29 with AVG * S/p fistulogram 08/27 with declot, successful * keep map >65, BPs soft but stable * Continue midodrine for low bp; will provide trial of Florinef but risk of volume overload noted * Minimal to no UF with HD as he is without volume overload * daily lytes * renal diet * strict i/os Subjective Date of service: 09/02/21 Principal diagnosis: esrd Interval history: Patient is comfortable today. Denies any shortness of breath. No nausea vomiting or diarrhea. Objective - Vital Signs Vital signs: Vital Signs - 12hr 09/02/21 04:48 Temperature 97.9 F Pulse Rate 75 Respiratory 16 Rate Blood Pressure 82/47 O2 Sat by Pulse 90 Oximetry - General Appearance General appearance: well-developed, well-nourished, appears stated age EENT: PERRL, mucous membranes moist Neck: no JVD, no thyromegaly Respiratory: Present: Clear to Ascultation Cardiology: regular, normal heart rate Gastrointestinal: normoactive bowel sounds, other (Colostomy bag in place) Integumentary: other (AV fistula left upper arm. Good bruit and thrill.) - Lab 08/27/21 07:40 08/27/21 07:40 Most recent lab results Calcium 7.7 mg/dL (8.4-10.2) L 08/27/21 07:40 Medications & Allergies - Medications Allergies/Adverse Reactions: Allergies No Known Allergies Allergy (Verified 03/17/19 12:18) Home Medications: Home Medications Medication Instructions Recorded Confirmed Last Taken Type Calcium Acetate [Phoslo] 667 mg PO TID 03/15/19 08/22/21 Unknown History Insulin Detemir [Levemir VIAL] 5 units SUB-Q QAM 03/15/19 08/22/21 Unknown History Omeprazole 20 mg PO BID 03/15/19 08/22/21 Unknown History Sertraline [Zoloft] 50 mg PO QDAY 03/15/19 08/22/21 Unknown History Sodium Bicarbonate 650 mg PO QID 03/15/19 08/22/21 Unknown History allopurinoL [Zyloprim] 100 mg PO QDAY 03/15/19 08/22/21 Unknown History megestroL [Megestrol] 10 ml PO QDAY 03/15/19 08/22/21 Unknown History Active Medications: Generic Name Dose Route Start Last Admin Trade Name Freq PRN Reason Stop Dose Admin Acetaminophen 650 mg 08/22/21 13:00 Acetaminophen 325 Mg Tab PO Q4H PRN Pain MILD(1-3)/Fever >100.5/NATHAN Albuterol 2.5 mg 08/22/21 12:15 Albuterol 2.5 Mg/3 Ml Nebu IH Q4HRT PRN Shortness Of Breath Allopurinol 100 mg 08/23/21 10:00 09/01/21 09:01 Allopurinol 100 Mg Tab PO 100 mg QDAY ALMA Administration Calcium Acetate 667 mg 08/23/21 08:30 09/01/21 17:25 Calcium Acetate 667 Mg Cap PO 667 mg TIDWM ALMA Administration Fludrocortisone Acetate 0.1 mg 09/02/21 10:00 Fludrocortisone 0.1 Mg Tab PO QDAY ALMA Hydromorphone HCl 0.5 mg 08/22/21 13:00 Hydromorphone 1 Mg/1 Ml Inj IV Q23H PRN Pain , Severe (7-10) Sodium Chloride 100 mls @ 999 mls/hr 08/25/21 10:21 Nacl 0.9% IV HERNANDEZ PRN Hypotension Midodrine 10 mg 08/24/21 08:00 09/01/21 17:25 Midodrine 5 Mg Tab PO 10 mg TID@0800,1200,1600 [facility] Administration Ondansetron HCl 4 mg 08/22/21 12:15 08/25/21 13:06 Ondansetron 4 Mg/2 Ml Inj IV 4 mg Q8H PRN Administration Nausea And Vomiting Oxycodone/Acetaminophen 1 tab 08/22/21 13:00 08/27/21 22:20 Oxycodone /Acetaminophen 5-325mg Tab PO 1 tab Q16H PRN Administration Pain, Moderate (4-6) Pantoprazole Sodium 20 mg 08/22/21 22:00 09/01/21 21:16 Pantoprazole 20 Mg Tab PO 20 mg BID ALMA Administration Sertraline HCl 50 mg 08/23/21 10:00 09/01/21 09:01 Sertraline 50 Mg Tab PO 50 mg QDAY ALMA Administration Sodium Bicarbonate 650 mg 08/22/21 14:00 09/01/21 21:16 Sodium Bicarbonate 650 Mg Tab PO 650 mg QID ALMA Administration Sodium Chloride 10 ml 08/22/21 22:00 09/01/21 21:16 Sodium Chloride 0.9% 10 Ml Flush Syringe IV 10 ml BID ALMA Administration Sodium Chloride 10 ml 08/22/21 12:15 Sodium Chloride 0.9% 10 Ml Flush Syringe IV PRN PRN LINE FLUSH
[2021-09-02] MEDS: SODIUM BICARBONATE 650 MG TAB PO SCH ×4 (11:12→21:58)
[2021-09-02] MEDS: MIDODRINE 5 MG TAB PO SCH ×3 (11:12→18:28)
[2021-09-02] MEDS: CALCIUM ACETATE 667 MG CAP PO SCH ×3 (11:12→18:28)
[2021-09-02] MEDS: allopurinoL 100 MG TAB PO SCH (11:12)
[2021-09-02] MEDS: SERTRALINE 50 MG TAB PO SCH (11:13)
[2021-09-02] MEDS: PANTOPRAZOLE 20 MG TAB PO SCH ×2 (11:13→21:58)
[2021-09-02] MEDS: FLUDROCORTISONE 0.1 MG TAB PO SCH (15:18)
[2021-09-03] MEDS: CALCIUM ACETATE 667 MG CAP PO SCH ×4 (08:45→18:56)
--- NOTE | 2021-09-03 09:53 | Progress Note ---
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 In ED, his blood pressure was with a blood pressure of 88/31. ESRD. Hypotension Diabetes mellitus type 2. 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 Hyperkalemia History of gout. GERD. 08/23/2021. Hypotension has resolved with systolic blood pressure in the 150s this morning. Consider midodrine if patient has any more episodes. We will continue to monitor today. Anticipate discharge in a.m. if remains stable. Continue Accu-Cheks and SSRI. Continue hemodialysis per nephrology recommendations. 08/24/2021. Dr. Branch reports patient appears to have a functioning AV fistula. Resume hemodialysis per nephrology. Patient with hypotension last ev ening and this morning. We will initiate midodrine. Follow-up stat BMP. 08/25/2021. Tunneled catheter placement per nephrology and vascular surgery. Continue midodrine for hypotension. Continue IV fluids per nephrology recommendations. We will give 60 of Kayexalate for hyperkalemia with potassium of 6.0. Consider insulin and glucose. 08/26/2021. Vas-Cath placed by IR yesterday. Hemodialysis per nephrology. Continue midodrine for hypotension. Hyperkalemia resolved. Check echocardiogra m to assess systolic function. Also check TSH and random cortisol levels. 08/27/2021 Patient with ESRD on dialysis, hypotension. Patient with AV graft malfunction s/p angioplasty today by Vasc Surgeon. 08/28/2021 Patient with ESRD on hemodialysis. He was sent from dialysis center because of hypotension. He had av graft malfunction s/p angioplasty yesterday by vasc Surgeon. For hemodialysis tomorrow. Poss dc tomorrow after dialysis if graft works well. Vasc surgeon recommends removal of Vasc cath if av graft works well. Vasc surgeon and Nephrology to determine if ok for discharge. 09/29/2021. Patient is still hypotensive with blood pressure 89/42 and map of 57. Continue midodrine. His random cortisol level is normal. Will monitor post hemodialysis and if his blood pressure improved with MAP up to 65 tomorrow, will discharge him home. 08/30/2021. Patient is still hypotensive with map of 54. He had sinus tachycardia with heart rate of 131 post hemodialysis yesterday. About 500 cc of fluid was removed during hemodialysis. Nephrology is on board and I suspect patient may need to have less or no fluid removed hemodialysis. Does not appear overloaded and no edema at this time. Still on midodrine. Nephrology is considering possibly starting patient on Florinef but noted there is a risk of edema and hyperkalemia. Plan is to discharge home when blood pressure improves with MAP of up to 65. 08/31/2021 Patient still has low BP. On Midodrine. To dc home when MAP>65% 09/01/2021 Patient with ESRD on dialysis. He had av graft malfunction s/p angioplasty by Vasc Surgeon. He has been having hypotension, still has low BP. On Midodrine. To dc home when MAP>65% 09/02/21 Patient with ESRD on hemodialysis. He was initially sent from dialysis center because of hypotension. He had av graft malfunction s/p angioplasty done by vasc Surgeon. He has been hypotensive, was started on Midodrine. To discharge home when MAP>65 09/03/2021. MAP is adequate today at 74. Continue Florinef and midodrine. Consider discharge home if okay with nephrology. History Interval history: No new issues overnight Hospitalist Physical - Constitutional Vitals: Temp Pulse Resp BP Pulse Ox 98.1 F 70 16 102/60 99 09/03/21 04:14 09/03/21 04:14 09/03/21 04:14 09/03/21 04:14 09/03/21 04:14 General appearance: Present: no acute distress - EENT Eyes: Present: PERRL, EOM intact ENT: hearing intact, clear oral mucosa, dentition normal - Neck Neck: Present: supple, normal ROM - Respiratory Respiratory effort: normal Respiratory: bilateral: CTA - Cardiovascular Rhythm: regular Heart Sounds: Present: S1 & S2. Absent: gallop, rub - Extremities Extremities: no ischemia, No edema, Full ROM - Abdominal General gastrointestinal: soft, non-tender, non-distended, normal bowel sounds - Integumentary Integumentary: Present: clear, warm, dry - Neurologic Neurologic: CNII-XII intact, moves all extremities HEART Score - HEART Score Troponin: Troponin T 0.069 ng/mL (0.00-0.029) H 08/22/21 10:47 Results - Labs CBC & Chem 7: 08/27/21 07:40 08/27/21 07:40 Labs: Laboratory Last Values WBC 5.4 K/mm3 (4.5-11.0) 08/27/21 07:40 RBC 3.06 M/mm3 (3.65-5.03) L 08/27/21 07:40 Hgb 9.6 gm/dl (11.8-15.2) L 08/27/21 07:40 Hct 29.2 % (35.5-45.6) L 08/27/21 07:40 MCV 96 fl (84-94) H 08/27/21 07:40 MCH 31 pg (28-32) 08/27/21 07:40 MCHC 33 % (32-34) 08/27/21 07:40 RDW 15.6 % (13.2-15.2) H 08/27/21 07:40 Plt Count 96 K/mm3 (140-440) L 08/27/21 07:40 Lymph % (Auto) 15.9 % (13.4-35.0) 08/27/21 07:40 [place] % (Auto) 9.6 % (0.0-7.3) H 08/27/21 07:40 Eos % (Auto) 1.7 % (0.0-4.3) 08/27/21 07:40 Baso % (Auto) 0.4 % (0.0-1.8) 08/27/21 07:40 Lymph # (Auto) 0.9 K/mm3 (1.2-5.4) L 08/27/21 07:40 [place] # (Auto) 0.5 K/mm3 (0.0-0.8) 08/27/21 07:40 Eos # (Auto) 0.1 K/mm3 (0.0-0.4) 08/27/21 07:40 Baso # (Auto) 0.0 K/mm3 (0.0-0.1) 08/27/21 07:40 Seg Neutrophils % 72.4 % (40.0-70.0) H 08/27/21 07:40 Seg Neutrophils # 3.9 K/mm3 (1.8-7.7) 08/27/21 07:40 Sodium 137 mmol/L (137-145) 08/27/21 07:40 Potassium 4.7 mmol/L (3.6-5.0) 08/27/21 07:40 Chloride 98.5 mmol/L (98-107) 08/27/21 07:40 Carbon Dioxide 24 mmol/L (22-30) 08/27/21 07:40 Anion Gap 19 mmol/L 08/27/21 07:40 BUN 31 mg/dL (9-20) H 08/27/21 07:40 Creatinine 14.6 mg/dL (0.8-1.3) H 08/27/21 07:40 Estimated GFR 3 ml/min 08/27/21 07:40 BUN/Creatinine Ratio 2 % 08/27/21 07:40 Glucose 84 mg/dL (75-100) 08/27/21 07:40 Lactic Acid 1.40 mmol/L (0.7-2.0) 08/23/21 00:13 Calcium 7.7 mg/dL (8.4-10.2) L 08/27/21 07:40 Total Bilirubin 0.30 mg/dL (0.1-1.2) 08/22/21 10:47 AST 68 units/L (5-40) H 08/22/21 10:47 ALT 62 units/L (7-56) H 08/22/21 10:47 Alkaline Phosphatase 231 units/L (35-129) H 08/22/21 10:47 Troponin T 0.069 ng/mL (0.00-0.029) H 08/22/21 10:47 Total Protein 5.6 g/dL (6.3-8.2) L 08/22/21 10:47 Albumin 3.1 g/dL (3.9-5) L 08/22/21 10:47 Albumin/Globulin Ratio 1.2 % 08/22/21 10:47 Triglycerides 87 mg/dL (2-149) 08/22/21 10:47 Cholesterol 81 mg/dL (50-199) 08/22/21 10:47 LDL Cholesterol Direct 20 mg/dL (50-130) L 08/22/21 10:47 HDL Cholesterol 49 mg/dL (40-59) 08/22/21 10:47 Cholesterol/HDL Ratio 1.65 % 08/22/21 10:47 TSH 6.140 mlU/mL (0.270-4.200) H 08/26/21 23:46 Free T4 1.10 ng/dL (0.76-1.46) 08/27/21 Unknown Total Cortisol 12.7 mcg/dL () 08/26/21 23:46 Hepatitis A IgM Ab Non-reactive (NonReactive) 08/24/21 07:17 Hep Bs Antigen Nonreactive (Negative) 08/24/21 07:17 Hep B Core IgM Ab Non-reactive (NonReactive) 08/24/21 07:17 Hepatitis C Antibody Non-reactive (NonReactive) 08/24/21 07:17 [place]/IV: Voiding Method Urinal Active Medications - Current Medications Current Medications: Generic Name Dose Route Start Last Admin Trade Name Freq PRN Reason Stop Dose Admin Acetaminophen 650 mg 08/22/21 13:00 Acetaminophen 325 Mg Tab PO Q4H PRN Pain MILD(1-3)/Fever >100.5/NATHAN Albuterol 2.5 mg 08/22/21 12:15 Albuterol 2.5 Mg/3 Ml Nebu IH Q4HRT PRN Shortness Of Breath Allopurinol 100 mg 08/23/21 10:00 09/02/21 11:12 Allopurinol 100 Mg Tab PO 100 mg QDAY ALMA Administration Calcium Acetate 667 mg 08/23/21 08:30 09/02/21 18:28 Calcium Acetate 667 Mg Cap PO 667 mg TIDWM ALMA Administration Fludrocortisone Acetate 0.1 mg 09/02/21 10:00 09/02/21 15:18 Fludrocortisone 0.1 Mg Tab PO 0.1 mg QDAY ALMA Administration Hydromorphone HCl 0.5 mg 08/22/21 13:00 Hydromorphone 1 Mg/1 Ml Inj IV Q23H PRN Pain , Severe (7-10) Sodium Chloride 100 mls @ 999 mls/hr 08/25/21 10:21 Nacl 0.9% IV HERNANDEZ PRN Hypotension Midodrine 10 mg 08/24/21 08:00 09/02/21 18:28 Midodrine 5 Mg Tab PO 10 mg TID@0800,1200,1600 ALMA Administration Ondansetron HCl 4 mg 08/22/21 12:15 08/25/21 13:06 Ondansetron 4 Mg/2 Ml Inj IV 4 mg Q8H PRN Administration Nausea And Vomiting Oxycodone/Acetaminophen 1 tab 08/22/21 13:00 08/27/21 22:20 Oxycodone /Acetaminophen 5-325mg Tab PO 1 tab Q16H PRN Administration Pain, Moderate (4-6) Pantoprazole Sodium 20 mg 08/22/21 22:00 09/02/21 21:58 Pantoprazole 20 Mg Tab PO 20 mg BID ALMA Administration Sertraline HCl 50 mg 08/23/21 10:00 09/02/21 11:13 Sertraline 50 Mg Tab PO 50 mg QDAY ALMA Administration Sodium Bicarbonate 650 mg 08/22/21 14:00 09/02/21 21:58 Sodium Bicarbonate 650 Mg Tab PO 650 mg QID ALMA Administration Sodium Chloride 10 ml 08/22/21 22:00 09/02/21 21:59 Sodium Chloride 0.9% 10 Ml Flush Syringe IV 10 ml BID ALMA Administration Sodium Chloride 10 ml 08/22/21 12:15 Sodium Chloride 0.9% 10 Ml Flush Syringe IV PRN PRN LINE FLUSH Nutrition/Malnutrition Assess - Dietary Evaluation Nutrition/Malnutrition Findings: Nutrition Notes Start: 08/23/21 13:57 Freq: Status: Active Protocol: Document 08/30/21 16:32 BRITANY (Rec: 08/30/21 16:52 BRITANY [id number]) Nutrition Notes Need for Assessment generated from: MD Order Initial or Follow up Assessment Other Pertinent Diagnosis Transient hypotension, ESRD- Dialysis, 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 Current Diet Renal Diet (since B 08/28) Labs/Tests 08/27: BUN 31, Cr 14.6. Pertinent Medications 08/30: Unremarkable. Height 5 ft 1 in Weight 46.9 kg [place] Body Weight (kg) 50.90 BMI 19.5 Intake Prior to Admission Good Weight Status Appropriate Subjective/Other Information Pt needs dialysis 3Xweek, and uses colostomy bag. Percent of energy/protein needs met: Renal Diet provides for energy /protein needs (2072 Kcal/77 g ) during LOS. Burn Absent Trauma Absent GI Symptoms None Food Allergy No Skin Integrity/Comment Integumentary; clear, warm, dry. Current % PO Good (75-100%) Minimum of two criteria No physical signs of malnutrition #1 Nutrition Diagnosis No nutrition diagnosis at this time Comments: Pt intake of meals has been at +/-75% of total portion served, good appetite has been recovered. Diagnosis Progress(for reassessment Improved documentation) Is patient on ventilator? No Is Patient Ambulatory and/or Out of Bed Yes REE-([place]-St. Jeor-ambulatory/OOB) [ 1465.594 [id number]] Kcal/Kg value to use for calculation 27 Approximate Energy Requirements Using 1266 kcal/Kg Calculation Used for Recommendations Kcal/kg Additional Notes Protein: 0.8-1.0 g/Kg/day; 41- 51 g/day; 164-204 Kcal/day ( from IBW and Dialysis) Fluids: 1.0 ml/Kcal, or as per MD. Nutrition Intervention Change Diet Order: Continue Renal Diet Goal #1 Maintain [place] energy/ protein balance during LOS. Goal #2 Maintain body weight within +/ -3% of actual BWt during LOS. Goal #3 Achieve and maintain acceptable chemistry lab values during LOS. Follow-Up By: 09/05/21 Additional Comments Continue monitoring acceptyance of food, % PO intake of meals, hydration, and BM.
--- NOTE | 2021-09-03 09:59 | Discharge Summary ---
Providers - Providers Date of Admission: 08/23/21 15:13 Date of discharge: 09/03/21 Attending physician: VICTOR MANUEL NICOLE 08/23/21 08:34 Consult to Physician [CONS] Routine Comment: Consulting Provider: VICKY MILLER Physician Instructions: Reason For Exam: ESRD 08/23/21 13:27 Consult to Physician [CONS] Routine Comment: Consulting Provider: VILMA RAMOS Physician Instructions: Reason For Exam: malfuctioning dialysis access 08/30/21 14:08 Consult to Wound/ET Nurse [CONS] Routine Reason For Exam: colostomy bag leakage 08/31/21 17:32 Physical Therapy Evaluation and Treat [CONS] Routine Comment: Reason For Exam: weakness right sided/pt uses walker at home Primary care physician: PALLIATIVE CARE COORDINATOR Hospitalization Reason for admission: Hypotension. Condition: Stable Hospital course: 65 YO Male with GERD, ESRD on HD(T,R,Sa), Gout, DM, CVA complicated by Aphasia presents to ED for evaluation for hypotension during outpatient hemodialysis. In ED, his blood pressure was with a blood pressure of 88/31. ESRD. Hypotension Diabetes mellitus type 2. 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 Hyperkalemia History of gout. GERD. 08/23/2021. Hypotension has resolved with systolic blood pressure in the 150s this morning. Consider midodrine if patient has any more episodes. We will continue to monitor today. Anticipate discharge in a.m. if remains stable. Continue Accu-Cheks and SSRI. Continue hemodialysis per nephrology recommendations. 08/24/2021. Dr. Branch reports patient appears to have a functioning AV fistula. Resume hemodialysis per nephrology. Patient with hypotension last evening and this morning. We will initiate midodrine. Follow-up stat BMP. 08/25/2021. Tunneled catheter placement per nephrology and vascular surgery. Continue midodrine for hypotension. Continue IV fluids per nephrology recommendations. We will give 60 of Kayexalate for hyperkalemia with potassium of 6.0. Consider insulin and glucose. 08/26/2021. Vas-Cath placed by IR yesterday. Hemodialysis per nephrology. Continue midodrine for hypotension. Hyperkalemia resolved. Check ec hocardiogram to assess systolic function. Also check TSH and random cortisol levels. Random cortisol was within normal limits and echocardiogram revealed EF normal at 55% 08/27/2021 Patient with ESRD on dialysis, hypotension. Patient with AV graft malfunction s/p angioplasty today by Vasc Surgeon. 08/28/2021 Patient with ESRD on hemodialysis. He was sent from dialysis center because of hypotension. He had av graft malfunction s/p angioplasty yesterday by vasc Surgeon. For hemodialysis tomorrow. Poss dc tomorrow after dialysis if graft works well. Vasc surgeon recommends removal of Vasc cath if av graft works well. Vasc surgeon and Nephrology to determine if ok for discharge. 09/29/2021. Patient is still hypotensive with blood pressure 89/42 and map of 57. Continue midodrine. His random cortisol level is normal. Will monitor post hemodialysis and if his blood pressure improved with MAP up to 65 tomorrow, will discharge him home. 08/30/2021. Patient is still hypotensive with map of 54. He had sinus tachycardia with heart rate of 131 post hemodialysis yesterday. About 500 cc of fluid was removed during hemodialysis. Nephrology is on board and I suspect patient may need to have less or no fluid removed hemodialysis. Does not appear overloaded and no edema at this time. Still on midodrine. Nephrology is considering possibly starting patient on Florinef but noted there is a risk of edema and hyperkalemia. Plan is to discharge home when blood pressure improves with MAP of up to 65. 08/31/2021 Patient still has low BP. On Midodrine. To dc home when MAP>65% 09/01/2021 Patient with ESRD on dialysis. He had av graft malfunction s/p angioplasty by Vasc Surgeon. He has been having hypotension, still has low BP. On Midodrine. To dc home when MAP>65% 09/02/21 Patient with ESRD on hemodialysis. He was initially sent from dialysis center because of hypotension. He had av graft malfunction s/p angioplasty done by vasc Surgeon. He has been hypotensive, was started on Midodrine. To discharge home when MAP>65 09/03/2021. MAP is adequate today at 74. Continue Florinef and midodrine. I discussed the case with nephrology who is okay with discharge. Patient will be discharged home with Midrin and Florinef. Patient is to follow-up with nephrology as an outpatient. Dedicated discharge time 35 minutes Disposition: 01 HOME / SELF CARE / HOMELESS Final Discharge Diagnosis (Prints w/discharge instructions): ESRD, chronic hypotension, diabetes mellitus type 2, CVA complicated by aphasia, hyperkalemia, history of gout, GERD. Core Measure Documentation - Palliative Care Palliative Care/ Comfort Measures: Not Applicable - Core Measures Any of the following diagnoses?: none Exam - Constitutional Vitals: Temp Pulse Resp BP Pulse Ox 98.1 F 70 16 102/60 99 09/03/21 04:14 09/03/21 04:14 09/03/21 04:14 09/03/21 04:14 09/03/21 04:14 General appearance: Present: no acute distress, well-nourished - EENT Eyes: Present: PERRL ENT: hearing intact, clear oral mucosa - Neck Neck: Present: supple, normal ROM - Respiratory Respiratory effort: normal Respiratory: bilateral: CTA - Cardiovascular Heart Sounds: Present: S1 & S2. Absent: rub, click - Extremities Extremities: pulses symmetrical, No edema Peripheral Pulses: within normal limits - Abdominal General gastrointestinal: Present: soft, non-tender, non-distended, normal bowel sounds Male genitourinary: Present: normal - Integumentary Integumentary: Present: clear, warm, dry - Musculoskeletal Musculoskeletal: gait normal, strength equal bilaterally - Psychiatric Psychiatric: appropriate mood/affect, intact judgment & insight - Neurologic Neurologic: CNII-XII intact, moves all extremities Plan Activity: advance as tolerated Weight Bearing Status: Weight Bear as Tolerated Diet: renal Follow up with: PRIMARY CARE, [Primary Care Provider] - 7 Days Prescriptions: Fludrocortisone [Florinef] 0.1 mg PO QDAY #30 tablet Calcium Acetate [Phoslo] 667 mg PO TID #90 cap Midodrine [Proamatine] 10 mg PO TID@0800,1200,1600 #90 tablet Sertraline [Zoloft] 50 mg PO QDAY #30 allopurinoL [Zyloprim] 100 mg PO QDAY #30
[2021-09-03] MEDS: MIDODRINE 5 MG TAB PO SCH ×3 (10:44→18:45)
[2021-09-03] MEDS: SODIUM BICARBONATE 650 MG TAB PO SCH ×4 (11:30→22:40)
[2021-09-03] MEDS: PANTOPRAZOLE 20 MG TAB PO SCH ×2 (11:47→22:40)
[2021-09-03] MEDS: FLUDROCORTISONE 0.1 MG TAB PO SCH (18:55)
[2021-09-03] MEDS: allopurinoL 100 MG TAB PO SCH (18:55)
[2021-09-03] MEDS: SERTRALINE 50 MG TAB PO SCH (18:55)
[2021-09-03 19:16] VITALS: BP 102/42
[2021-09-04] MEDS: allopurinoL 100 MG TAB PO SCH (09:44)
[2021-09-04] MEDS: MIDODRINE 5 MG TAB PO SCH (09:44)
[2021-09-04] MEDS: PANTOPRAZOLE 20 MG TAB PO SCH (09:44)
[2021-09-04] MEDS: CALCIUM ACETATE 667 MG CAP PO SCH (09:44)
[2021-09-04] MEDS: SODIUM BICARBONATE 650 MG TAB PO SCH (09:44)
--- NOTE | 2021-09-04 09:56 | Progress Note ---
Assessment and Plan Impression: * ESRD * hyperkalemia * hypotension * malfunctioning av access * HTN * anemia in esrd Plan: * prior to hospitalization, no dialysis in one week due to malfunctioning av access with hypotension * Appreciate IR, permacath placed 08/25 for access; s/p STAT HD 08/25 after CVC placement * Continue HD // per outpatient, no issues noted 08/27 and 08/29 with AVG * S/p fistulogram 08/27 with declot, successful * keep map >65, BPs soft but stable * Continue midodrine for low bp as well as Florinef * Minimal to no UF with HD as he is without volume overload * daily lytes * renal diet * strict i/os * No objection to discharge from renal standpoint Subjective Date of service: 09/04/21 Principal diagnosis: esrd Interval history: Patient is comfortable today. Denies any shortness of breath. No nausea vomiting or diarrhea. Objective - General Appearance General appearance: well-developed, well-nourished, appears stated age EENT: PERRL, mucous membranes moist Neck: no JVD Respiratory: Present: Clear to Ascultation Cardiology: regular, normal heart rate Integumentary: no rash, other (No edema. AV fistula left upper arm. Good bruit and thrill.) - Lab 08/27/21 07:40 08/27/21 07:40 Most recent lab results Calcium 7.7 mg/dL (8.4-10.2) L 08/27/21 07:40 Medications & Allergies - Medications Allergies/Adverse Reactions: Allergies No Known Allergies Allergy (Verified 03/17/19 12:18) Home Medications: Home Medications Medication Instructions Recorded Confirmed Last Taken Type Insulin Detemir [Levemir VIAL] 5 units SUB-Q QAM 03/15/19 08/22/21 Unknown History Omeprazole 20 mg PO BID 03/15/19 08/22/21 Unknown History Sodium Bicarbonate 650 mg PO QID 03/15/19 08/22/21 Unknown History megestroL [Megestrol] 10 ml PO QDAY 03/15/19 08/22/21 Unknown History Calcium Acetate [Phoslo] 667 mg PO TID #90 cap 09/03/21 Unknown Rx Epoetin Mazin-Epbx 10,000 Unit 10,000 unit IV HERNANDEZ PRN vial 09/03/21 Unknown Rx [Retacrit] Fludrocortisone [Florinef] 0.1 mg PO QDAY #30 tablet 09/03/21 Unknown Rx Midodrine [Proamatine] 10 mg PO TID@0800,1200,1600 #90 09/03/21 Unknown Rx tablet Sertraline [Zoloft] 50 mg PO QDAY #30 09/03/21 Unknown Rx allopurinoL [Zyloprim] 100 mg PO QDAY #30 09/03/21 Unknown Rx Active Medications: Generic Name Dose Route Start Last Admin Trade Name Freq PRN Reason Stop Dose Admin Acetaminophen 650 mg 08/22/21 13:00 Acetaminophen 325 Mg Tab PO Q4H PRN Pain MILD(1-3)/Fever >100.5/NATHAN Albuterol 2.5 mg 08/22/21 12:15 Albuterol 2.5 Mg/3 Ml Nebu IH Q4HRT PRN Shortness Of Breath Allopurinol 100 mg 08/23/21 10:00 09/04/21 09:44 Allopurinol 100 Mg Tab PO 100 mg QDAY ALMA Administration Calcium Acetate 667 mg 08/23/21 08:30 09/04/21 09:44 Calcium Acetate 667 Mg Cap PO 667 mg TIDWM ALMA Administration Fludrocortisone Acetate 0.1 mg 09/02/21 10:00 09/03/21 18:55 Fludrocortisone 0.1 Mg Tab PO 0.1 mg QDAY ALMA Administration Hydromorphone HCl 0.5 mg 08/22/21 13:00 Hydromorphone 1 Mg/1 Ml Inj IV Q23H PRN Pain , Severe (7-10) Sodium Chloride 100 mls @ 999 mls/hr 08/25/21 10:21 Nacl 0.9% IV HERNANDEZ PRN Hypotension Midodrine 10 mg 08/24/21 08:00 09/04/21 09:44 Midodrine 5 Mg Tab PO 10 mg TID@0800,1200,1600 ALMA Administration Ondansetron HCl 4 mg 08/22/21 12:15 08/25/21 13:06 Ondansetron 4 Mg/2 Ml Inj IV 4 mg Q8H PRN Administration Nausea And Vomiting Oxycodone/Acetaminophen 1 tab 08/22/21 13:00 08/27/21 22:20 Oxycodone /Acetaminophen 5-325mg Tab PO 1 tab Q16H PRN Administration Pain, Moderate (4-6) Pantoprazole Sodium 20 mg 08/22/21 22:00 09/04/21 09:44 Pantoprazole 20 Mg Tab PO 20 mg BID ALMA Administration Sertraline HCl 50 mg 08/23/21 10:00 09/03/21 18:55 Sertraline 50 Mg Tab PO 50 mg QDAY ALMA Administration Sodium Bicarbonate 650 mg 08/22/21 14:00 09/04/21 09:44 Sodium Bicarbonate 650 Mg Tab PO 650 mg QID ALMA Administration Sodium Chloride 10 ml 08/22/21 22:00 09/04/21 09:44 Sodium Chloride 0.9% 10 Ml Flush Syringe IV 10 ml BID ALMA Administration Sodium Chloride 10 ml 08/22/21 12:15 Sodium Chloride 0.9% 10 Ml Flush Syringe IV PRN PRN LINE FLUSH
== END 2021-09-04 10:45 | disposition home or self-care (01) | DRG 252 ==
LOC: ED 09:03 → 3A 12:15 → OBSVTOIN 08-23 15:13
PROVIDERS: ADMIT Internal Medicine; ATTEND Hospitalist
PROC: 06H033Z Insertion of Infusion Device into Inferior Vena Cava, Percutaneous Approach (ICD-10-PCS; 2021-08-25)
PROC: B549ZZA Ultrasonography of Inferior Vena Cava, Guidance (ICD-10-PCS; 2021-08-25)
PROC: 03783ZZ Dilation of Left Brachial Artery, Percutaneous Approach (ICD-10-PCS; 2021-08-27)
PROC: B51W1ZZ Fluoroscopy of Dialysis Shunt/Fistula using Low Osmolar Contrast (ICD-10-PCS; 2021-08-27)
PROC: 5A1D70Z Performance of Urinary Filtration, Intermittent, Less than 6 Hours Per Day (ICD-10-PCS; principal; 2021-08-29)
PROC: 5A1D70Z Performance of Urinary Filtration, Intermittent, Less than 6 Hours Per Day (ICD-10-PCS; 2021-08-31)
PROC: 5A1D70Z Performance of Urinary Filtration, Intermittent, Less than 6 Hours Per Day (ICD-10-PCS; 2021-09-03)
DX: T82.590A Other mechanical complication of surgically created arteriovenous fistula, initial encounter (principal); N18.6 End stage renal disease; E87.2 Acidosis; R47.01 Aphasia; D61.818 Other pancytopenia; I12.0 Hypertensive chronic kidney disease with stage 5 chronic kidney disease or end stage renal disease; I95.9 Hypotension, unspecified; K21.9 Gastro-esophageal reflux disease without esophagitis; Z79.4 Long term (current) use of insulin; Z87.891 Personal history of nicotine dependence; Z83.3 Family history of diabetes mellitus; Z82.49 Family history of ischemic heart disease and other diseases of the circulatory system; D63.1 Anemia in chronic kidney disease; E87.5 Hyperkalemia; Y83.2 Surgical operation with anastomosis, bypass or graft as the cause of abnormal reaction of the patient, or of later complication, without mention of misadventure at the time of the procedure; Y92.89 Other specified places as the place of occurrence of the external cause; R00.0 Tachycardia, unspecified; I69.320 Aphasia following cerebral infarction
CPT/HCPCS: 36415; 36556; 36902; 71045; 80048; 80053; 80061; 80074; 82140; 82533; 84439; 84443; 84484; 85025; 87040; 93306; G0378; C1725; C1752; C1769; C1894; J0690; J1644; J2250; J2405; J3010; J7030; J7040; J7050; J7070; Q9967